=== PATIENT | female | born 1965 | race African-American/Black ===

== ENCOUNTER 2017-12-18 14:10 | Inpatient (IN) | payer SELFPAY ==
[2017-12-18] MEDS ORDERED: Nitroglycerin 2% Ointment 1 INCH/1 GM Packet ONE (14:15)
--- NOTE | 2017-12-18 14:26 | PDOC.FPRHP ---
- History of Present Illness Chief Complaint: Chest pain History of Present Illness: 52 yo F here with complaint of chest and right arm pain that onset this last night and progressively worsened until waking her from her sleep at 0400. Pt states that her pain started in her right arm and progressed to her chest. Pain is described as tightness with pain radiating to R arm/shoulder. She also complains of associated n/v and cold sweats. She has never had similar pain in the past. She has known HTN, however she has not taken her meds for at least 2 months. ED Course: Pt presented to the [facility] ED for evaluation where she was found to have a BP in 260s/130s. She was given cardine and sent to this location. Initial trops were 0.082 at 1110, this increased to 0.645 at 1433. CKMB was 3.6 and trended to 9.4. Here there was concern for possible dissection by ERMD, CTA could not be ordered dt JOLENE, thus MRA was ordered and is pending at time of this H&P - Allergies/Adverse Reactions Allergies Allergy/AdvReac Type Severity Reaction Status Date / Time No Known Allergies Allergy Verified 12/18/17 16:41 - Home Medications Comments: Unknown HTN meds, she hasnt had meds in 2-3 months - History PMHx: HTN PSHx: None FHx: Granmother CAD Grandfather CAD, ESRD Social: Cigarettes 15-30 pack year hx Denies etoh Previous marijuana use - Review of Systems General: denies: fever/chills, weight/appetite/sleep changes Eyes: denies: vision changes ENT: denies: nasal congestion, rhinorrhea Respiratory: denies: shortness of breath Cardiovascular: reports: chest pain. denies: palpitation Gastrointestinal: reports: nausea, vomiting. denies: diarrhea, constipation, abdominal pain Genitourinary: denies: incontinence, dysuria Skin: denies: rashes, lesions Musculoskeletal: denies: pain, tenderness Neurological: reports: other (Complains of headache). denies: numbness, syncope , seizure Psychological: denies: anxiety, depression - Vital signs BP: 182/93, 263/134 at max in [facility] HR: 72 RR: 23 Tmax: 98.3 Pox: 97% on RA Wt: 74 kg - Physical Exam Constitutional: NAD, awake, alert and oriented HEENT: normocephalic and atraumatic, grossly normal vision, grossly normal hearing Neck: FROM, trachea midline, no bruits Heart: RRR, no edema -Heart: 3/6 systolic murmur R sternal border Lungs: CTAB Abdomen: soft, non-tender, bowel sounds present Musculoskeletal: normal structure, normal tone Neurological: no focal deficit, CN II-XII intact Skin: no rash/lesions, good turgor Heme/Lymphatic: no unusual bruising or bleeding, no purpura Psychiatric: normal mood and affect, good judgment and insight FMR H&P: Results - Labs Lab results: Laboratory Tests 12/18/17 12/18/17 12/18/17 11:10 11:10 11:10 WBC RBC Hgb Hct MCV MCH MCHC RDW Plt Count D-Dimer 0.71 H Sodium 141 Potassium 3.3 L Chloride 104 Carbon Dioxide 25 Anion Gap 15 BUN 33 H Creatinine 2.07 H Estimated GFR (MDRD) 30 Glucose 99 Calcium 9.9 Total Bilirubin 0.5 AST 24 ALT 24 Alkaline Phosphatase 66 Creatine Kinase CK-MB (CK-2) 3.6 Troponin I 0.082 H B-Natriuretic Peptide Serum Total Protein 7.8 Albumin 4.3 Globulin 3.5 Albumin/Globulin Ratio 1.2 12/18/17 12/18/17 12/18/17 11:10 11:10 14:33 WBC 4.9 RBC 5.01 Hgb 11.2 L Hct 38.8 MCV 77.4 L MCH 22.3 L MCHC 28.9 L RDW 14.6 H Plt Count 218 D-Dimer Sodium Potassium Chloride Carbon Dioxide Anion Gap BUN Creatinine Estimated GFR (MDRD) Glucose Calcium Total Bilirubin AST ALT Alkaline Phosphatase Creatine Kinase CK-MB (CK-2) 9.4 H* Troponin I 0.645 H* B-Natriuretic Peptide 182.0 H Serum Total Protein Albumin Globulin Albumin/Globulin Ratio 12/18/17 14:33 WBC RBC Hgb Hct MCV MCH MCHC RDW Plt Count D-Dimer Sodium Potassium Chloride Carbon Dioxide Anion Gap BUN Creatinine Estimated GFR (MDRD) Glucose Calcium Total Bilirubin AST ALT Alkaline Phosphatase Creatine Kinase 320 H CK-MB (CK-2) Troponin I B-Natriuretic Peptide Serum Total Protein Albumin Globulin Albumin/Globulin Ratio - EKG Interpretation EKG: NSR rate 67. Twave inversion leads II, III, V4-6. LVH - Radiology Interpretation MRI - abdomen Status: pending FMR H&P: A/P - Problem List (1) Hypertensive emergency without congestive heart failure Current Visit: Yes Status: Acute Priority: High Code(s): I16.1 - HYPERTENSIVE EMERGENCY (2) NSTEMI (non-ST elevated myocardial infarction) Current Visit: Yes Status: Acute Priority: High Code(s): I21.4 - NON-ST ELEVATION (NSTEMI) MYOCARDIAL INFARCTION (3) JOLENE (acute kidney injury) Current Visit: Yes Status: Acute Priority: High Code(s): N17.9 - ACUTE KIDNEY FAILURE, UNSPECIFIED (4) HTN (hypertension) Current Visit: Yes Status: Chronic Priority: High Code(s): I10 - ESSENTIAL (PRIMARY) HYPERTENSION (5) Cardiac enzymes elevated Current Visit: Yes Status: Acute Priority: High Code(s): R74.8 - ABNORMAL LEVELS OF OTHER SERUM ENZYMES (6) Elevated brain natriuretic peptide (BNP) level Current Visit: Yes Status: Acute Priority: Medium Code(s): R79.89 - OTHER SPECIFIED ABNORMAL FINDINGS OF BLOOD CHEMISTRY (7) Hypokalemia Current Visit: Yes Status: Acute Priority: Medium Code(s): E87.6 - HYPOKALEMIA - Plan Hypertensive emergency - signs of end organ damage given elevated trops and Cr - Admit to ICU, continue cardine drip titrate to 180 SBP - Repeat BMP in am - Trend trops q3 with EKG at time of trop - MRA results pending, will consult CV surg if indicated NSTEMI - Consult cardiology, this is likely demand related, however appreciate recommendation - Trend trops/EKG as above - hold lovenox until MRA r/o dissection JOLENE vs CKD - likely assd with poor perfusion from BP - Trend bmp in am - check urine Na and Cr, calculate FENa Elevated BNP - mild elevation, no signs of overload. Likely related to BP Hypokalemia - maintenance IVF LR w/20mEq KCl PPx - SCD, hold lovenox as above Code full Diet NPO Dispo guarded. Likely LOS greater than 2 days. FMR H&P: Upper Level - Pertinent history 52 yo BF p/w progressively worsening midsternal chest pain and tightness radiating to right arm since last night. Associated symptoms include n/v and cold sweats. She has never had similar pain in the past. She has known HTN but has not taken her antihypertensive medications for at least 2 months. She has not seen a doctor in multiple months. In [place] [facility], pt was found to have an initial BP in 260s/130s. She was started on cardene drip and and transferred. Troponin has uptrended from 0.082 to 0.645 at 1433. CKMB was 3.6 and trended to 9.4. MRA was ordered d/t concern for possible dissection, but this has been read as negative. - Pertinent findings Gen: AAOx3, NAD HEENT: NC/AT, MMM CV: RRR, no m/g/r Resp: CTAB, no increased work of breathing Abd: NT/ND; +BS Ext: no c/c/e Pulses: 2+ BLE's Neuro: non-focal, CN's 2-12 intact - Plan Date/Time: 12/18/17 1426 I, Levy Delgado MD, have evaluated this patient and agree with findings/plan as outlined by recording studio internship resident. Pertinent changes/additions are listed here. 52 yo BF with: 1) Hypertensive emergency: Admit to CCU, continue cardene drip and titrate to goal SBP of <180. Some evidence of end organ damage (elevated creatinine and uptrending troponins). MRA negative for dissection. Concern for possible concomitant ACS. 2) NSTEMI: Consulting cardiology. More likely demand related/type 2 AK; however appreciate further recommendations. Trend trops/EKG q3h. Start th Lovenox, plavix, prn O2 and morphine given continuing CP and possible new EKG changes (T wave inversion in II, III, V5, V6). 3) JOLENE vs CKDIIIb: Likely JOLENE on CKD due to poor renal perfusion; trend Cr. Will check urine Na and Cr for FeNA calculation. IVF at maintenance. 4) Elevated BNP: mild, no current evidence of overload. Will order TTE. 5) Hypokalemia: repletion in IVF 6) Tobacco abuse: cessation counseling. DVT PPx: Lovenox as above. Code status: full Diet: NPO fow now. Disposition: guarded. Anticipate LOS>2 midnights.
[2017-12-18 15:15] LABS: CKMB 9.4 ng/mL (0-6.6); Troponin I 0.645 ng/mL (< 0.028)
[2017-12-18] MEDS ORDERED: Potassium Chloride 20 MEQ in Lactated Ringer's 1,000 ML IV SCH (15:45)
[2017-12-18] MEDS ORDERED: Nitroglycerin 0.4 MG TAB (25 Tab Bottle) SL PRN (16:11)
[2017-12-18] MEDS ORDERED: Acetaminophen 325 MG TAB PO PRN (16:11)
[2017-12-18] MEDS ORDERED: Ondansetron HCl/PF 4 MG/2 ML Vial IVP PRN (16:11)
--- NOTE | 2017-12-18 16:21 | MRI ---
MRI CHEST WITHOUT CONTRAST: MRI ABDOMEN WITHOUT CONTRAST: HISTORY: Chest pain, radiating to the back, with hypertension. Exam requested to evaluate for aortic dissecti on. FINDINGS: Absence of IV contrast reduces the sensitivity of the exam. Dark blood imaging of the thoracoabdomin al aorta demonstrates no evidence of signal abnormality or aneurysmal dilatation. No intramural hemat chris is seen. The liver, spleen, pancreas, adrenal glands, kidneys, and gallbladder are unremarkable. Bone marrow signal is normal. A small amount of free fluid is seen in the pelvis. A uterus is present. IMPRESSION: No evidence of secondary signs for aortic dissection. POS: [facility]
[2017-12-18 16:43] VITALS: BMI 22.6
[2017-12-18] MEDS ORDERED: Clopidogrel Bisulfate 300 MG TAB PO SCH (17:15)
[2017-12-18] MEDS ORDERED: Enoxaparin Sodium 60 MG/0.6 ML SYRINGE SC SCH (17:30)
[2017-12-18] MEDS ORDERED: Carvedilol 6.25 MG TAB PO SCH (17:45)
[2017-12-18 19:33] LABS: Troponin I 1.503 ng/mL (< 0.028)
[2017-12-18] MEDS: hydrALAZINE 25 MG TAB PO SCH (20:43)
[2017-12-18 20:44] VITALS: BP 122/68
--- NOTE | 2017-12-18 20:57 | ULT ---
ULTRASOUND RETROPERITONEUM COMPLETE: (RENAL) 12/18/2017 HISTORY: A 52-year-old female with acute kidney injury. FINDINGS: The right kidney measures 10 x 3.5 x 5 cm. The left kidney measures 8.5 x 5 x 5 cm. Renal parenchymal echogenicity is diffusely increased, consistent with medical renal disease. No hydronephrosis bilaterally. No moderate sized or large renal cystic or solid lesion identified. The patient voided just prior to this ultrasound. The bladder volume is approximately 20 mL at the t dante of this scan. Bilateral ureteral jets are demonstrated. IMPRESSION: 1. Evidence for medical renal disease. 2. No hydronephrosis; no obstructive uropathy. LARS Carrera POS: [facility]
[2017-12-18 22:34] LABS: Troponin I 2.489 ng/mL (< 0.028)
[2017-12-18 22:55] LABS: Creatinine, Urine 45.84 mg/dL (47-110)
--- NOTE | 2017-12-18 23:08 | CON ---
DATE OF CONSULTATION: 12/18/2017 SERVICE: Pulmonary Medicine. REASON FOR CONSULTATION: ICU patient. HISTORY OF PRESENT ILLNESS: The patient is a 52-year-old, -[place] female with past medical history significant for hypertension. For the last 2 months, she has been off her blood pressure medications because she indicates she cannot afford them. Either way, she was in her usual state of health until the day of presentation. She started having onset of severe chest discomfort that radiated down to her left arm. She presented to the emergency department. Initial blood pressure demonstrated that she had a systolic blood pressure of 260. She was given nitro paste, and initiated on a nicardipine drip. Once her blood pressures were under better control, she stopped having the chest discomfort. She was sent down to an MRI because of acute kidney injury to determine whether or not she had any significant dissection. This was unremarkable. She got tucked into the ICU, and currently, she is feeling just fine. Otherwise, there has been no interval change to her condition. She denies any preceding fevers, chills, nausea, vomiting or chest discomfort. She was at a picnic for a family member. She feels that maybe she was not drinking enough liquids and perhaps was a touch dehydrated. PAST MEDICAL HISTORY: Hypertension. PAST SURGICAL HISTORY: None. FAMILY HISTORY: Noncontributory. SOCIAL HISTORY: Negative for alcohol or illicit drug use. She smokes a half pack a day and has done so for about 30 years. She has no exposure to chemicals , dust, asbestos or tuberculosis. She does work in a laundry location. Recently, there has been a moldy smell about her place, but it has not set off her lungs. ALLERGIES: No known drug allergies. MEDICATIONS: List of her inpatient medications were reviewed. A couple of small updates were made at this time. REVIEW OF SYSTEMS: General, head, ears, eyes, nose, throat, cardiovascular, respiratory, GI, , musculoskeletal, neurologic and skin is negative except as mentioned in the HPI. PHYSICAL EXAMINATION: VITAL SIGNS: Afebrile, pulse 64, blood pressure 170/86, respirations 17, saturation 98% on room air. GENERAL: The patient is awake, alert, in no apparent distress. LUNGS: Excellent air entry without prolonged expiratory phase, wheezing, rhonchi or crackles. HEART: Normal rate, regular. ABDOMEN: Soft, nontender, nondistended. Bowel sounds are positive. MUSCULOSKELETAL: No cyanosis or clubbing. There is no pitting in the bilateral lower extremities. NEUROLOGIC: Grossly nonfocal. LABORATORY DATA: WBC 4.9, hemoglobin 11.2, platelets 218,000. D-dimer 0.71. Basic metabolic profile, liver function studies are unremarkable except for creatinine of 2.07, and a potassium of 3.3. Troponin 0.082 is up trending to 0.6. CK-MB is also up trending. CK 320, TSH falls within the normal limits. IMAGIN. MRI of the chest demonstrates no acute dissection. 2. CT of the brain demonstrates no acute intracranial abnormality. 3. Chest x-ray demonstrates no acute cardiopulmonary abnormality identified. ASSESSMENT: 1. Hypertensive emergency. 2. Non-ST elevation myocardial infarction. 3. Acute kidney injury, suspected. 4. Anemia. DISCUSSION AND PLAN: We will work on controlling the patient's blood pressure. We are going to wean away the nicardipine drip and see if we can transition her over to p.o. medications. Pulmonary Critical Care will continue to follow along while the patient remains in this location. Once she is off the drip and the nitro paste, she will be a candidate for transition to the floor. I have stressed the importance of her being on good blood pressure control medications. She understands that without a decent blood pressure control, she will likely develop progressive end-stage renal disease and require dialysis at some point in the future. 70 minutes have been devoted to this patient in various activities. I personally reviewed all imaging studies and laboratory data noted within this document. For fifty percent of this time, I was interacting with the patient at the bedside or coordinating care with the care team. For the remainder of the time I was immediately available to the patient in the hospital unit. DEBI
[2017-12-19 03:10] LABS: #Eosinphils 0.1 thou/uL (0.0-0.7); #Lymphocytes 1.6 thou/uL (1.20-3.40); #Monocytes 0.4 thou/uL (0.11-0.59); %Basophils 0.3 % (0.0-1.0); %Eosinophils 2.5 % (0.0-10.0); %Lymphocytes 31.4 % (21.0-51.0); %Monocytes 8.3 % (0.0-10.0); %Neutrophils 57.5 % (42.0-75.0); Hemoglobin 10.6 g/dL (12.0-16.0); Mean Corpuscular HGB CONC 32.9 g/dL (32.0-36.0); Mean Corpuscular Hemoglobin 24.8 pg (27.0-31.0); Mean Corpuscular Volume 75.6 fl (81.0-99.0); Mean Platelet Volume 8.4 fL (7.4-10.4); Platelet Count 203 thou/uL (130-400); RBC Distribution Width 13.8 % (11.5-14.5); Red Blood Cell (RBC) Count 4.25 mill/uL (4.20-5.40); White Blood Cell (WBC) Count 5.2 thou/uL (4.8-10.8)
[2017-12-19 03:37] LABS: CKMB 9.5 ng/mL (0-6.6); Troponin I 4.445 ng/mL (< 0.028)
[2017-12-19 03:40] LABS: Anion Gap 11 mmol/L (10-20); BUN (Urea Nitrogen) 28 mg/dL (9.8-20.1); Calc. Creatinine Clearance 36 mL/min (70-130); Calcium 9.1 mg/dL (7.8-10.44); Carbon Dioxide 28 mmol/L (22-29); Chloride 104 mmol/L (98-107); Estimated GFR-MDRD 37; Glucose 101 mg/dL (70-105); Potassium 3.4 mmol/L (3.5-5.1); Sodium 140 mmol/L (136-145)
[2017-12-19 06:31] LABS: CKMB 8.1 ng/mL (0-6.6)
[2017-12-19] MEDS: hydrALAZINE 25 MG TAB PO SCH (07:53)
[2017-12-19] MEDS ORDERED: Carvedilol 6.25 MG TAB PO SCH (08:00)
--- NOTE | 2017-12-19 08:29 | PDOC.FM ---
- Subjective Subjective: Patient reports doing well overnight. Denies any symptoms from yesterday such as CP, right arm pain. Denies N/V/D/C, BAKER, SOB. - Objective MAR Reviewed: Yes Vital Signs & Weight: Vital Signs (12 hours) Temp Pulse Resp BP Pulse Ox 12/19/17 07:22 98.6 F 65 15 98 12/19/17 03:00 98.9 F 12/18/17 23:00 98.4 F 12/18/17 20:43 68 122/68 Weight Weight 64.1 kg Most Recent Monitor Data Heart Rate from ECG 66 NIBP 152/85 NIBP BP-Mean 95 Respiration from ECG 17 SpO2 97 I&O: 12/18/17 12/19/17 12/20/17 06:59 06:59 06:59 Intake Total 925 Output Total 1025 0 Balance -100 0 Result Diagrams: 12/19/17 03:02 12/19/17 03:02 <David Meza M - Last Filed: 12/19/17 08:27> - Objective Vital Signs & Weight: Vital Signs (12 hours) Temp Pulse Resp Pulse Ox 12/19/17 07:22 98.6 F 65 15 98 12/19/17 03:00 98.9 F Weight Weight 64.1 kg Most Recent Monitor Data Heart Rate from ECG 63 NIBP 144/85 NIBP BP-Mean 106 Respiration from ECG 14 SpO2 100 I&O: 12/18/17 12/19/17 12/20/17 06:59 06:59 06:59 Intake Total 925 150 Output Total 1025 250 Balance -100 -100 Result Diagrams: 12/19/17 03:02 12/19/17 03:02 <Mustapha Hunter - Last Filed: 12/19/17 11:37> Phys Exam - Physical Examination Constitutional: NAD HEENT: moist MMs, oral pharynx no lesions Respiratory: no wheezing, clear to auscultation bilateral Cardiovascular: RRR, no significant murmur Gastrointestinal: soft, non-tender, positive bowel sounds Musculoskeletal: no edema, pulses present Neurological: normal sensation, moves all 4 limbs Psychiatric: normal affect, A&O x 3 Skin: no rash, normal turgor <David Meza - Last Filed: 12/19/17 08:27> Dx/Plan (1) Hypertensive emergency without congestive heart failure Code(s): I16.1 - HYPERTENSIVE EMERGENCY Status: Acute Plan: improved BP from yesterday when she presented with symptoms, still elevated today continue with BP home regimen with PRNs; if still consistently high, we might need to add another agent as she is currently on hydralazine and nicardipine (2) NSTEMI (non-ST elevated myocardial infarction) Code(s): I21.4 - NON-ST ELEVATION (NSTEMI) MYOCARDIAL INFARCTION Status: Acute Plan: suspect demand ischemia 2/2 HTN emergency Cardiology consulted, recs greatly appreciated (3) JOLENE (acute kidney injury) Code(s): N17.9 - ACUTE KIDNEY FAILURE, UNSPECIFIED Status: Acute Plan: improving, continue fluid hydration and monitoring suspected 2/2 HTN emergency (4) Cardiac enzymes elevated Code(s): R74.8 - ABNORMAL LEVELS OF OTHER SERUM ENZYMES Status: Acute (5) Hypokalemia Code(s): E87.6 - HYPOKALEMIA Status: Acute Plan: replace (6) HTN (hypertension) Code(s): I10 - ESSENTIAL (PRIMARY) HYPERTENSION Status: Chronic Plan: continue with nicardipine and hydralazine, consider adding another agent if still elevated, but it looks better than yesterday (7) Anemia Code(s): D64.9 - ANEMIA, UNSPECIFIED Status: Acute <David Meza - Last Filed: 12/19/17 08:27> Attending Addendum - Attending Addendum Date/Time: 12/19/17 1133 I personally evaluated the patient and discussed the management with Dr. Mzea I agree with the History, Examination, Assessment and Plan documented above with any addition or exceptions noted below.Discussed with patient futility of vinegar regimen for the treatment of hypertension. Plan convert affordable PO HTN, Statin Rxs and need ASA. Appreciate Cardiology recommendation regard NSTEMI and patient stable transfer to telemetry floor today. <Mustapha Hunter - Last Filed: 12/19/17 11:37>
[2017-12-19] MEDS ORDERED: Potassium Chloride 20 MEQ TAB PO SCH (08:30)
[2017-12-19] MEDS ORDERED: Aspirin 81 mg Enteric Coated Tablet PO SCH (09:00)
[2017-12-19] MEDS ORDERED: Clopidogrel Bisulfate 75 MG TAB PO SCH (09:00)
[2017-12-19] MEDS ORDERED: Enoxaparin Sodium 60 MG/0.6 ML SYRINGE SC SCH (09:00)
[2017-12-19 12:35] VITALS: TEMP 98.9
[2017-12-19] MEDS ORDERED: Atorvastatin Calcium 40 MG TAB PO SCH (12:45)
[2017-12-19] MEDS ORDERED: NIFEdipine XL 60 MG TAB PO SCH (13:00)
--- NOTE | 2017-12-19 13:44 | CON ---
DATE OF CONSULTATION: 12/19/2017 HISTORY OF PRESENT ILLNESS: The patient is a 52-year-old woman, who presented for evaluation of head aches and right-sided chest discomfort. The patient has no previous cardiac history. She has a long history of hypertension. She states she has not seen a doctor or had been on medications for severa l years. The patient states that she was out in the heat yesterday when she suddenly developed a hea dache. She developed right-sided chest discomfort that radiated into her right arm. She went to the emergency room for evaluation. The patient states the chest discomfort did not radiate. She stated it was associated with nausea and vomiting and diaphoresis. PAST MEDICAL HISTORY: Significant for hypertension. PAST SURGICAL HISTORY: None. SOCIAL HISTORY: The patient smokes 1 pack per day. FAMILY HISTORY: Strong family history of coronary artery disease. ALLERGIES: No known drug allergies. PHYSICAL EXAMINATION: GENERAL: This is an anxious woman with a blood pressure of 144/85. NECK: No jugular venous distention. LUNGS: Clear to auscultation. HEART: Regular rate and rhythm, normal S1 and S2, no murmurs. ABDOMEN: Nondistended. EXTREMITIES: Show no edema. LABORATORY RESULTS: Sodium 140, potassium 3.4, chloride 104, bicarbonate 28, BUN 20, creatinine is 1 .72, glucose is 101. Her troponin was 4.4. Her EKG revealed normal sinus rhythm with diffuse T-wave abnormality suggestive of ischemia. IMPRESSION: 1. Hypertensive crisis. 2. Non-Q-wave myocardial infarction. 3. Renal insufficiency. 4. Abnormal electrocardiogram. 5. Noncompliance. 6. Tobacco abuse. This patient is a 52-year-old woman, who presented with a hypertensive crisis and a non-Q-wave myocar dial infarction. The patient has multiple risk factors for coronary artery disease. I have recommen ded proceeding with invasive evaluation with her multiple risk factors and non-Q-wave myocardial infa rction. The patient is adamant that she will not undergo this procedure. She states that she unders tands that she is high risk of life-threatening cardiac complications. The patient is being treated at this time with aspirin, Plavix, and Lovenox. We will check the patient's echocardiogram. We woul d start the patient on lipid-lowering medication. The patient's prognosis is guarded. If she become s agreeable, we will proceed with cardiac catheterization during this hospitalization. We will follo w this patient with you. This is a critical care note, the time is 1 hour.
--- NOTE | 2017-12-19 19:49 | PRG ---
DATE OF SERVICE: 12/19/2017 SERVICE: Pulmonary Medicine. INTERVAL HISTORY: The patient is doing fine from a respiratory standpoint. She is breathing comfort ably and has no specific complaints of chest pain, shortness of breath, fevers or chills. Her creati nine is down trending nicely. Otherwise, there has been no interval change to her condition and ulti mately, she is feeling much improved. PHYSICAL EXAMINATION: VITAL SIGNS: Afebrile, pulse 67, blood pressure 169/102, respirations 21, saturation 100% on room ai r. GENERAL: The patient is awake, alert, in no apparent distress. LUNGS: Excellent air entry without prolonged expiratory phase, wheezing, rhonchi or crackles. HEART: Normal rate, regular. ABDOMEN: Soft, nontender, nondistended. Bowel sounds are positive. MUSCULOSKELETAL: No cyanosis or clubbing. There is no pitting in the bilateral lower extremities. NEUROLOGIC: Grossly nonfocal. LABORATORY DATA: CBC is grossly unremarkable. Chemistries are significant for a down trending BUN a nd creatinine. Potassium 3.4. Troponin was 4.445, and is down trending to 4.36. CK-MB is also down trending. IMAGING: Ultrasound of the bilateral kidneys demonstrates medical renal disease with no evidence of hydronephrosis. ASSESSMENT: 1. Hypertensive emergency. 2. Non-ST elevation myocardial infarction. 3. Acute kidney injury, suspected on top of some likely chronic kidney disease. 4. Anemia. DISCUSSION AND PLAN: At this point, the patient is stable for transition out of the ICU to the telem etry unit. Apparently, she is refused cardiac catheterization for risk stratification looking at cor onary disease. As such, when she leaves the ICU, she will have no further requirement for Pulmonary or Critical Care opinion and I will sign off. Please call with additional questions or concerns selina rosa forward.
[2017-12-20] MEDS ORDERED: NIFEdipine XL 60 MG TAB PO SCH (09:00)
[2017-12-20] MEDS ORDERED: Enoxaparin Sodium 40 MG/0.4 ML SYRINGE SC SCH (09:00)
--- NOTE | 2017-12-20 09:30 | DIS-2 ---
AMA DISCHARGE DATE OF ADMISSION: 12/18/2017 DATE OF AMA: 12/19/2017 RESIDENT: David Meza D.O. ADMITTING ATTENDING: Jigar Jimenez M.D. CONSULTATIONS: Dr. Pemberton of Pulmonology and Dr. Roe of Cardiology. PROCEDURES: Chest MRI showing no signs of aortic dissection. Renal ultrasound, which shows evidence for medical renal disease with no hydronephrosis or obstructive uropathy. Transthoracic echocardiog buster is pending at this time. PRIMARY DIAGNOSES: Hypertensive emergency with end-organ damage of acute kidney injury and non-ST el evation myocardial infarction. SECONDARY DIAGNOSES: 1. Tobacco abuse. 2. Medication noncompliance. 3. Acute kidney injury versus chronic kidney disease, 3B. 4. Hypertension. Medications given to patient upon leaving hospital: 1. Aspirin 81 mg p.o. daily. 2. Atorvastatin 80 mg p.o. at bedtime. 3. Nifedipine XL 30 mg p.o. daily. 4. Coreg 12.5 mg b.i.d. HISTORY OF PRESENT ILLNESS AND HOSPITAL COURSE: The patient is a 52-year-old female, who initially p resented to the [facility] with chest pain. At that time, the patient's brain CT was found to have findings suggesting white matter hypodensity with no intracranial hemorrhage, midline shift, or mass effect with potential white matter disease best being visualized with a followup MRI. At that time, the patient's blood pressure was in the 260s systolic. Therefore, patient was started on Cardene dri p and given Nitrostat, which resolved her symptoms with chest pain. After being transferred to [facility] in [place], her troponins were trended, which trended from 0.[address] up to 4.445. There was concern of an aortic dissection. Therefore, patient received MRA because of an JOLENE; however, MRA was negative for aortic dissection. Other pertinent labs initially was CK-M B of 3.6, which also elevated to 9.4. Additionally, initial creatinine was 2.07. EKGs showed T-wave inversions in leads II, III, V5 and V6. The patient apparently had not been taking blood pressure medications for a while although we are adrianne ble to determine exactly how long this time period was or why she stopped taking medications. On day 2 of hospitalization, patient was seen and evaluated by Cardiology, who recommended the patient rece roberta cardiac catheterization; however, the patient was resistant to this idea and became distraught at the idea, crying at one point discussing the procedure. The patient said she was refusing because h er brother's had what sounds like a similar procedure last year and during the procedure de spite explaining the risks involved and her current status and risk factors. The patient refused to go any further in the hospital visit and asked for AMA papers and for her daughter to be called. I p ersonally spoke with the patient and attempted to explain the situation and the severity and grave na ture of prognosis. However, she was adamant to leave as soon as her daughter arrived. Additionally, I asked if she would be willing to stay for another day just to lower her blood pressure and ensure that her kidney function was appropriately improving; however, she refused this compromise as well an d left AMA in the midafternoon on Monday. The patient was willing to take blood pressure medication s and statin, which we sent to pharmacy requested by the patient. DISPOSITION: Guarded. DISCHARGE INSTRUCTIONS: Patient requested to follow up with her PCP to ensure that kidney function h as improved to baseline and to follow up on blood pressure.
== END 2017-12-19 14:37 | disposition home or self-care (01) | DRG 281 ==
LOC: ERS 14:10 → CCU 15:52
PROVIDERS: ADMIT Student in an Organized Health Care Education/Training Program; ATTEND Student in an Organized Health Care Education/Training Program
DX: I21.4 Non-ST elevation (NSTEMI) myocardial infarction (principal); I16.1 Hypertensive emergency; N17.9 Acute kidney failure, unspecified; D64.9 Anemia, unspecified; F17.210 Nicotine dependence, cigarettes, uncomplicated; Z91.14 Patient's other noncompliance with medication regimen; E86.0 Dehydration; E87.6 Hypokalemia; R79.89 Other specified abnormal findings of blood chemistry; N18.3 Chronic kidney disease, stage 3 (moderate); Z79.899 Other long term (current) drug therapy
CPT/HCPCS: 36415; 71550; 76770; 80048; 82553; 82570; 84300; 84443; 84484; 85025; 93005; 93010; 93306; 94760; 96365; 96366; 99292; J1650; J3480; J7050; J7120

== ENCOUNTER 2018-03-26 12:24 | Inpatient (IN) | payer SELFPAY ==
[2018-03-26 13:22] LABS: #Eosinphils 0.2 thou/uL (0.0-0.7); #Lymphocytes 1.3 thou/uL (1.20-3.40); #Monocytes 0.4 thou/uL (0.11-0.59); %Basophils 0.9 % (0.0-1.0); %Eosinophils 3.2 % (0.0-10.0); %Lymphocytes 26.4 % (21.0-51.0); %Monocytes 7.8 % (0.0-10.0); %Neutrophils 61.7 % (42.0-75.0); Hemoglobin 10.4 g/dL (12.0-16.0); Mean Corpuscular HGB CONC 31.3 g/dL (32.0-36.0); Mean Corpuscular Hemoglobin 23.7 pg (27.0-31.0); Mean Corpuscular Volume 75.6 fL (78.0-98.0); Mean Platelet Volume 8.8 fL (7.4-10.4); Platelet Count 217 thou/uL (130-400); RBC Distribution Width 14.4 % (11.5-14.5); White Blood Cell (WBC) Count 4.9 thou/uL (4.8-10.8)
[2018-03-26 13:44] LABS: ALT (SGPT) 9 U/L (8-55); AST (SGOT) 17 U/L (5-34); Albumin 4.2 g/dL (3.5-5.0); Alkaline Phosphatase 57 U/L (40-150); Anion Gap 13 mmol/L (10-20); BUN (Urea Nitrogen) 31 mg/dL (9.8-20.1); Bilirubin, Total 0.6 mg/dL (0.2-1.2); CK (CPK) 201 U/L (29-168); Calc. Creatinine Clearance 0 mL/min (70-130); Calcium 9.7 mg/dL (7.8-10.44); Carbon Dioxide 23 mmol/L (22-29); Chloride 106 mmol/L (98-107); Estimated GFR-MDRD 31; Globulin 3.4 g/dL (2.4-3.5); Glucose 98 mg/dL (70-105); Potassium 3.8 mmol/L (3.5-5.1); Protein, Total 7.6 g/dL (6.0-8.3); Sodium 138 mmol/L (136-145)
[2018-03-26 13:48] LABS: CKMB 1.4 ng/mL (0-6.6); Troponin I Less than 0.010 ng/mL (< 0.028)
--- NOTE | 2018-03-26 13:50 | RAD ---
PORTABLE CHEST: HISTORY: Chest pain. COMPARISON: 12/18/17 study. Heart size is enlarged. There are arthrosclerotic changes of the aorta. The lungs are clear of infi ltrates. There are no signs of failure. IMPRESSION: Cardiomegaly. POS: GIANFRANCO
[2018-03-26] MEDS ORDERED: hydrALAZINE 20 MG/ML VIAL SLOW IVP SCH (16:00)
--- NOTE | 2018-03-26 16:43 | PDOC.FPRHP ---
- History of Present Illness Chief Complaint: Chest pain History of Present Illness: This is a 52 yo AA female with a PMH of HTN, hx of an NSTEMI on 12/18 presents with a cc of chest pain. She states that the pain was present last night but worsened this morning during a 1/2 mile walk to the grocery store. She states that she felt a sharp pain and felt she was sweating too much so she came home. She states that the pain was a 10/10 at the time and is currently intermittent. She is concerned because this is a similar pain to what she had during her [place] last time. Her pecan huller is Dr. Roe and she has no PCP. She also states she has LE swelling bilaterally. She had an echo in December showing EF of 50-55%. She also complains of right leg pain. It is a throbbing pain that is located in her anterior thigh primarily. Pt. did not take her medication this morning because she did not have any food. - Allergies/Adverse Reactions Allergies Allergy/AdvReac Type Severity Reaction Status Date / Time No Known Allergies Allergy Verified 12/18/17 16:41 - Home Medications Medication Instructions Recorded Confirmed Type Aspirin [Lo-Dose Aspirin EC] 81 mg PO DAILY #30 tablet. 12/19/17 03/26/18 Rx Atorvastatin Calcium 80 mg PO HS #30 tablet 12/19/17 03/26/18 Rx Carvedilol [Coreg] 12.5 mg PO BID-WM #60 tab 12/19/17 03/26/18 Rx Amlodipine [Norvasc] 10 mg PO DAILY 03/26/18 03/26/18 History - History PMHx: HTN, CKD stage 3, W[place] PSHx: FHx: Both parents of heart attacks. Mother and father at 70 and 72 respectively Social: 15 pack year history, occasional alcohol consumption, occasional marijuana use. - Review of Systems General: denies: fever/chills, weight/appetite/sleep changes Eyes: reports: eye pain (blurry vision) ENT: denies: nasal congestion, rhinorrhea Respiratory: reports: exercise intolerance (Chest pain with with walking. She reports that was the furthest she had walked in a while.). denies: cough, congestion, shortness of breath Cardiovascular: reports: chest pain (See HPI), edema (Occasional) Gastrointestinal: denies: nausea, vomiting, diarrhea, constipation, abdominal pain Genitourinary: reports: polyuria. denies: incontinence, dysuria Skin: denies: rashes, lesions Musculoskeletal: reports: pain (Right leg pain). denies: tenderness, stiffness , swelling Neurological: denies: syncope, weakness Psychological: reports: anxiety (History of anxiety with previous WV and thoughts of getting a stent.) - Vital signs BP: [165/92] HR: [62] RR: [14] Pox: [99]% on [RA] Wt: [66.22] - Physical Exam Constitutional: NAD, awake, alert and oriented, well developed HEENT: normocephalic and atraumatic, PERRLA Neck: supple, trachea midline, no JVD Chest: no lesions -Chest: Tenderness to palpation. Pt reports the pain from palpation was similar to the pain she felt this AM. Heart: RRR, normal S1/S2, no murmurs/rubs/gallops Lungs: CTAB, no respiratory distress, good air movement Abdomen: soft, non-tender, bowel sounds present Musculoskeletal: normal structure, normal tone, ROM grossly normal Neurological: no focal deficit, CN II-XII intact Skin: no rash/lesions, capillary refill <2 seconds Heme/Lymphatic: no unusual bruising or bleeding, no purpura -Psychiatric: Pt. had trouble remembering her last hospitalization. She reports that they gave her a medication, nitroglycerine, and that is why she could not remember. FMR H&P: Results - Labs Result Diagrams: 03/27/18 04:14 03/27/18 04:14 Lab results: WBC 4.9 thou/uL (4.8-10.8) 03/26/18 13:13 Hgb 10.4 g/dL (12.0-16.0) L 03/26/18 13:13 Hct 33.2 % (36.0-47.0) L 03/26/18 13:13 MCV 75.6 fL (78.0-98.0) L 03/26/18 13:13 Plt Count 217 thou/uL (130-400) 03/26/18 13:13 Neutrophils % 61.7 % (42.0-75.0) 03/26/18 13:13 Sodium 138 mmol/L (136-145) 03/26/18 13:13 Potassium 3.8 mmol/L (3.5-5.1) 03/26/18 13:13 Chloride 106 mmol/L (98-107) 03/26/18 13:13 Carbon Dioxide 23 mmol/L (22-29) 03/26/18 13:13 BUN 31 mg/dL (9.8-20.1) H 03/26/18 13:13 Creatinine 2.04 mg/dL (0.6-1.1) H 03/26/18 13:13 Glucose 98 mg/dL (70-105) 03/26/18 13:13 Calcium 9.7 mg/dL (7.8-10.44) 03/26/18 13:13 Total Bilirubin 0.6 mg/dL (0.2-1.2) 03/26/18 13:13 AST 17 U/L (5-34) 03/26/18 13:13 ALT 9 U/L (8-55) 03/26/18 13:13 Alkaline Phosphatase 57 U/L (40-150) 03/26/18 13:13 Creatine Kinase 201 U/L (29-168) H 03/26/18 13:13 CK-MB (CK-2) 1.4 ng/mL (0-6.6) 03/26/18 13:13 Serum Total Protein 7.6 g/dL (6.0-8.3) 03/26/18 13:13 Albumin 4.2 g/dL (3.5-5.0) 03/26/18 13:13 - EKG Interpretation EKG: EKG shows some lateral T wave changes that appear improved from the previous EKG in 12/18. NSR FMR H&P: A/P - Problem List (1) Acute kidney injury superimposed on chronic kidney disease Current Visit: Yes Status: Acute Code(s): N17.9 - ACUTE KIDNEY FAILURE, UNSPECIFIED; N18.9 - CHRONIC KIDNEY DISEASE, UNSPECIFIED (2) NSTEMI (non-ST elevated myocardial infarction) Current Visit: No Status: Acute Priority: High Code(s): I21.4 - NON-ST ELEVATION (NSTEMI) MYOCARDIAL INFARCTION (3) HTN (hypertension) Current Visit: No Status: Chronic Priority: High Code(s): I10 - ESSENTIAL (PRIMARY) HYPERTENSION - Plan This is a 52 yo AA female with a PMH of HTN, [place] 12/18/17, CKD Likely Unstable angina vs. ACS vs. chostrocondritis -Troponin is negative x2. EKG shows improved findings compared to her last admission. Her story fits angina but her pain is reproducable. We will keep her on tele obs overnight and consult cardiology in the morning after labs have come back. Pt. has a heart score of 5 based on findings. We are getting TSH to rule out any thyroid issues HTN -Continue home coreg, norvasc and atorvastatin CKD -Aware, dosing lovenox accordingly Code: full Prophylaxis: 30mg lovenox Family: none at beside Disposition: home in 1-2 days FMR H&P: Upper Level - Pertinent history 52 yo AAF with PMHx recent non-Q-wave WV who presents to the ER with 1 day of chest pain. She had a little bit last night that went away on it's own. This morning, she walked to the corner store to get a Coke and up on getting home, had an episode of sharp > 10/10 chest pain in her L upper chest. It made her feel short of breath and like the last time she had a heart attack so she came in to get checked out. She reports feeling sweaty as well. She denies n/v/ radiation of pain. She continues to smoke 1/2 ppd. - Pertinent findings Gen: awake, alert and oriented x3 Head: Atraumatic, normocephalic Eyes: EOMI, conjunctiva non-injected ENT: MMM, oropharynx without edema, trachea midline, no JVD, no thyromegaly or nodules CV: RRR, no murmur noted, L chest wall TTP, nitro patch in place, no skin changes RESP: CTAB, poor air entry at bases ABD: soft, nontender, bowel sounds diffusely present Ext: pulses full and equal, no peripheral edema Neuro: Strength 4/4 in all extremities, no facial droop Skin: No rashes, lesions See labs and imaging above - Plan Date/Time: 03/26/18 1641 I, Nereida Stallworth MD, have evaluated this patient and agree with findings/plan as outlined by cad intern resident. Pertinent changes/additions are listed here. 52 yo AAF with recent WV here with typical chest pain 1. Typical CP: HEART score 4. Pain improved with nitro, assoc with exertion, though also reproducible. Recent [place] and declined cath per Dr. Roe note but will consider it now. Will admit and trend trops, check FLP, TSH, Mg, Phos and monitor on tele. Will restart atorvastatin and ASA. Plavix per last cardiology note but not discharged on it so will await cardiology eval. Last saw Dr. Roe 1 month ago in clinic, per patient. No acute changes on EKG. 2. Hypertensive urgency: s/p hydralazine in ED. Will restart home meds 3. Tobacco abuse: Encouraged cessation. Pre-contemplative at this time. 4. CKD Stage 3, approaching 4: At baseline but should see nephrology outpatient. Will monitor and renally dose medications. Needs good BP control. 5. Microcytic anemia: Likely iron deficiency but may also be component from CKD. Iron studies outpatient. PPX: Lovenox Attending Addendum - Attending Addendum Date/Time: 03/26/18 349 I personally evaluated the patient and discussed the management with Dr. Mathew and Dr. Stallworth I agree with the History, Examination, Assessment and Plan documented above with any addition or exceptions noted below. 52 yo female with recent history of NSTEMI presents with exertional chest pain. Pain improved with nitro patch. Needs cath. EKG unchanged. No ST elevations. Trop negative. If trop remains negative and no changes occur on EKG, could consider stress in AM vs LHC. Normal ECHO in December 2017. Place on tele. Trend trops and repeat EKG. Restart ASA, Statin, BB. O2 and morphine as needed for ASC. Lovenox ppx. Monitor renal function. Likely prerenal. HTN urgency -- adjust BP meds ABrayMD
[2018-03-26 17:09] LABS: Troponin I Less than 0.010 ng/mL (< 0.028)
[2018-03-26 17:18] VITALS: BMI 24.5
[2018-03-26] MEDS ORDERED: Nitroglycerin 0.4 MG TAB (25 Tab Bottle) PO PRN (17:33)
[2018-03-26] MEDS ORDERED: Ondansetron HCl/PF 4 MG/2 ML Vial IVP PRN (17:33)
[2018-03-26] MEDS ORDERED: Acetaminophen 325 MG TAB PO PRN (17:33)
[2018-03-26] MEDS ORDERED: Ondansetron ODT 4 MG TAB PO PRN (17:33)
[2018-03-26] MEDS ORDERED: Carvedilol 6.25 MG TAB PO SCH ×2 (18:00→21:00)
[2018-03-26] MEDS ORDERED: Amlodipine 10 MG TAB PO SCH (18:00)
[2018-03-26] MEDS: Nicotine 14 MG PATCH TD SCH (18:12)
[2018-03-26 20:07] LABS: Magnesium 2.1 mg/dL (1.6-2.6); Phosphorus 3.2 mg/dL (2.3-4.7)
[2018-03-26 20:14] LABS: Troponin I 0.015 ng/mL (< 0.028)
[2018-03-26 20:28] LABS: Ferritin 104.39 ng/mL (10-291)
[2018-03-26 20:35] LABS: Thyroid Stimulating Hormone 0.9644 uIU/mL (0.35-4.94)
[2018-03-26] MEDS: Enoxaparin Sodium 30 MG/0.3 ML SYRINGE SC SCH (20:56)
[2018-03-27 05:05] LABS: #Basophils 0.1 thou/uL (0.0-0.2); #Eosinphils 0.2 thou/uL (0.0-0.7); #Lymphocytes 1.8 thou/uL (1.20-3.40); #Monocytes 0.4 thou/uL (0.11-0.59); #Neutrophils 2.1 thou/uL (1.40-6.50); %Basophils 1.4 % (0.0-1.0); %Eosinophils 3.7 % (0.0-10.0); %Lymphocytes 40.4 % (21.0-51.0); %Neutrophils 46.6 % (42.0-75.0); Hemoglobin 10.5 g/dL (12.0-16.0); Mean Corpuscular HGB CONC 31.5 g/dL (32.0-36.0); Mean Corpuscular Hemoglobin 23.6 pg (27.0-31.0); Mean Platelet Volume 8.6 fL (7.4-10.4); Platelet Count 204 thou/uL (130-400); RBC Distribution Width 14.3 % (11.5-14.5); Red Blood Cell (RBC) Count 4.47 mill/uL (4.20-5.40); White Blood Cell (WBC) Count 4.4 thou/uL (4.8-10.8)
[2018-03-27 05:06] LABS: Anion Gap 12 mmol/L (10-20); BUN (Urea Nitrogen) 29 mg/dL (9.8-20.1); CK (CPK) 165 U/L (29-168); Calc. Creatinine Clearance 35 mL/min (70-130); Calcium 9.9 mg/dL (7.8-10.44); Carbon Dioxide 26 mmol/L (22-29); Cardiac Risk 2.6 (Less than 4.5); Chloride 105 mmol/L (98-107); Cholesterol 160 mg/dl (< 200 Desired); Estimated GFR-MDRD 34; Glucose 96 mg/dL (70-105); HDL Cholesterol 61 mg/dL (>60 Neg Risk); LDL Cholesterol, Calculated 88 mg/dL; Potassium 3.8 mmol/L (3.5-5.1); Sodium 139 mmol/L (136-145); Triglycerides 56 mg/dL (Less than 150)
--- NOTE | 2018-03-27 05:53 | PDOC.FM ---
- Subjective Subjective: Pt. reports she did well overnight. She denies any sob, n/v, or abdominal pain. Pt. reports improved chest pain and states it is still reproducible. I discussed the plan of stress test or heart cath with her and she became tearful. She does state that she would be willing to do it if she had to. - Objective MAR Reviewed: Yes Vital Signs & Weight: Vital Signs (12 hours) Temp Pulse Resp BP Pulse Ox 03/27/18 04:17 98.6 F 92 19 156/96 H 99 03/26/18 19:11 98.5 F 72 16 131/76 99 03/26/18 18:33 99 Weight Weight 63.957 kg I&O: 03/25/18 03/26/18 03/27/18 06:59 06:59 06:59 Intake Total 0 Balance 0 Result Diagrams: 03/27/18 04:14 03/27/18 04:14 <Ab Mathew - Last Filed: 03/27/18 08:47> - Objective Vital Signs & Weight: Vital Signs (12 hours) Temp Pulse Resp BP Pulse Ox 03/27/18 15:38 70 16 143/84 H 99 03/27/18 15:17 98.4 F 70 15 143/84 H 98 03/27/18 13:20 98.6 F 65 18 151/89 H 99 03/27/18 11:15 169/92 H 03/27/18 11:12 176/99 H 03/27/18 11:11 72 03/27/18 08:17 72 03/27/18 07:32 98.8 F 72 19 179/107 H 99 03/27/18 04:17 98.6 F 92 19 156/96 H 99 Weight Weight 63.957 kg I&O: 03/26/18 03/27/18 03/28/18 06:59 06:59 06:59 Intake Total 360 Output Total 400 400 Balance -40 -400 Result Diagrams: 03/27/18 04:14 03/27/18 04:14 <Shira Youssef - Last Filed: 03/27/18 16:05> Phys Exam - Physical Examination Constitutional: NAD HEENT: moist MMs Neck: no JVD Respiratory: no wheezing, no rales Cardiovascular: RRR, no significant murmur Gastrointestinal: soft, non-tender, no distention, positive bowel sounds Musculoskeletal: no edema, pulses present Neurological: non-focal, normal sensation, moves all 4 limbs Psychiatric: A&O x 3 Skin: cap refill <2 seconds <Ab Mathew - Last Filed: 03/27/18 08:47> Dx/Plan (1) Acute kidney injury superimposed on chronic kidney disease Code(s): N17.9 - ACUTE KIDNEY FAILURE, UNSPECIFIED; N18.9 - CHRONIC KIDNEY DISEASE, UNSPECIFIED Status: Acute (2) NSTEMI (non-ST elevated myocardial infarction) Code(s): I21.4 - NON-ST ELEVATION (NSTEMI) MYOCARDIAL INFARCTION Status: Acute (3) HTN (hypertension) Code(s): I10 - ESSENTIAL (PRIMARY) HYPERTENSION Status: Chronic - Plan Plan: This is a 52 yo AA female with a PMH of HTN, [place] 12/18/17, CKD Likely Unstable angina vs. ACS vs. chostrocondritis -Troponin is negative x3. EKG shows improved findings compared to her last admission. Her story fits angina but her pain is reproducible. Pt. has a heart score of 5 based on findings. TSH was .964, LDL 88, HDL 61, Cholesterol 160, Triglycerides 56. Despite pt. risk factors, clinical picture is evolving more into unstable angina vs. chostrocondritis. We will consult cardiology today for their recommendations on stress test vs. heart cath. HTN -Continue home coreg, norvasc and atorvastatin CKD -Aware, dosing lovenox accordingly Code: full Prophylaxis: 30mg lovenox Family: none at beside Disposition: home in 1-2 days <Ab Mathew - Last Filed: 03/27/18 08:47> Attending Addendum - Attending Addendum Date/Time: 03/27/18 [id number] I personally evaluated the patient and discussed the management with Dr. Mathew. I agree with the History, Examination, Assessment and Plan documented above with any addition or exceptions noted below. The patient's chest pain is reproducible to palpation. She declined a cath during her last visit but is now open to it. Will consult cards. <Shira Youssef - Last Filed: 03/27/18 16:05>
[2018-03-27 07:56] LABS: Troponin I 0.021 ng/mL (< 0.028)
[2018-03-27] MEDS: Amlodipine 10 MG TAB PO SCH (08:17)
[2018-03-27] MEDS: Carvedilol 6.25 MG TAB PO SCH ×2 (08:17→21:03)
[2018-03-27] MEDS ORDERED: Carvedilol 6.25 MG TAB PO SCH (09:00)
[2018-03-27 09:11] LABS: Troponin I 0.013 ng/mL (< 0.028)
[2018-03-27] MEDS ORDERED: Lidocaine 1% (PF) 30 ML VIAL ONE (11:05)
[2018-03-27] MEDS ORDERED: hydrALAZINE 20 MG/ML VIAL SLOW IVP SCH (11:15)
[2018-03-27] MEDS ORDERED: Fentanyl 100 MCG/2 ML VIAL ONE (11:45)
[2018-03-27] MEDS ORDERED: Midazolam HCl 2 mg/2 ml Vial ONE (11:45)
[2018-03-27] MEDS ORDERED: Acetaminophen/Codeine 30-300mg Tablet PO PRN ×2 (12:24)
[2018-03-27] MEDS ORDERED: traMADol HCl 50 MG TAB PO PRN (12:24)
[2018-03-27] MEDS ORDERED: Nitroglycerin 0.4 MG TAB (25 Tab Bottle) SL PRN (12:24)
[2018-03-27] MEDS ORDERED: Sodium Chloride 0.9% 200 ML IV SCH (12:30)
--- NOTE | 2018-03-27 13:45 | CON ---
DATE OF CONSULTATION: 03/27/2018 HISTORY OF PRESENT ILLNESS: The patient is a 52-year-old woman with a history of poorly controlled hypertension who presents with recurrent chest discomfort. The patient was seen in December of this year with atypical chest pain. She was found to be markedly hypertensive. She had possible small non-Q-wave myocardial infarction. The patient had multiple risks for coronary artery disease and it was recommended to undergo further evaluation. The patient declined to undergo a cardiac catheterization. The patient states she was at home and been compliant with her medications. She developed left-sided chest discomfort. This has been intermittent since yesterday. She states it is made worse with exertion. The patient denies having any PND or orthopnea. PAST MEDICAL HISTORY: Hypertension. PAST SURGICAL HISTORY: None. SOCIAL HISTORY: The patient continues to use tobacco. FAMILY HISTORY: Strong family history of heart disease. ALLERGIES: No known drug allergies. MEDICATIONS ON ADMISSION: Lipitor 80 at bedtime, Norvasc 10 daily, Coreg 12.5 b.i.d., and aspirin 81 daily. REVIEW OF SYSTEMS: Ten-point system otherwise unremarkable. PHYSICAL EXAMINATION: GENERAL: Thin woman who is anxious. VITAL SIGNS: Blood pressure was 179/99. NECK: No jugular distention, no carotid bruits. LUNGS: Clear to auscultation. HEART: Regular rate and rhythm, normal S1, S2, no murmurs. ABDOMEN: Nondistended. EXTREMITIES: No edema. LABORATORY RESULTS: Revealed her to have a sodium 139, potassium 3.8, chloride 105, bicarbonate 26, BUN 29, creatinine is 1.8, glucose 96, troponin 0.021. Her white blood cell count is 4.4, hemoglobin 10.5, hematocrit 33.5, and her platelets are 204. Her EKG reveals her to have normal sinus rhythm with T-wave abnormality suggestive of lateral ischemia. IMPRESSION: 1. Chest pain, possibly due to ischemic heart disease. 2. Hypertension. 3. Chronic renal insufficiency. 4. Tobacco abuse. This unfortunate woman presents with recurrently poorly controlled hypertension and chest discomfort. I discussed the options of noninvasive stress testing versus an invasive evaluation. The patient at this time prefers to undergo cardiac catheterization. She understands that the risk involved with cardiac catheterization including HI, bleeding, stroke, cardiac arrhythmia, and cardiac . The patient also understands the risks involved and developing worsening renal insufficiency and possible need for dialysis. PLAN: Proceed with cardiac catheterization. DEBI
[2018-03-27] MEDS: Nitroglycerin 2% Ointment 1 INCH/1 GM Packet TOP SCH ×2 (13:52→21:04)
[2018-03-27] MEDS ORDERED: Nitroglycerin 2% Ointment 1 INCH/1 GM Packet TOP SCH (14:00)
[2018-03-27] MEDS ORDERED: Iopamidol 370 76% 100 ML VIAL ONE (15:11)
[2018-03-27] MEDS: Nicotine 14 MG PATCH TD SCH (16:25)
[2018-03-27] MEDS ORDERED: Communication Order-Pharmacy FS ONE (16:48)
[2018-03-27] MEDS: Sodium Chloride 0.9% 1,000 ML IV SCH (18:21)
[2018-03-27] MEDS: Atorvastatin Calcium 40 MG TAB PO SCH (21:03)
[2018-03-27] MEDS: Enoxaparin Sodium 30 MG/0.3 ML SYRINGE SC SCH (21:04)
[2018-03-28] MEDS: Sodium Chloride 0.9% 1,000 ML IV SCH ×3 (04:12→21:04)
[2018-03-28 05:38] LABS: INR-International Normal Ratio 1.1; PTT 38.6 SEC (22.9-36.1); Prothrombin Time 14.7 SEC (12.0-14.7)
[2018-03-28 05:55] LABS: Anion Gap 13 mmol/L (10-20); BUN (Urea Nitrogen) 25 mg/dL (9.8-20.1); Calc. Creatinine Clearance 35 mL/min (70-130); Calcium 9.6 mg/dL (7.8-10.44); Carbon Dioxide 23 mmol/L (22-29); Chloride 107 mmol/L (98-107); Estimated GFR-MDRD 34; Glucose 82 mg/dL (70-105); Potassium 3.7 mmol/L (3.5-5.1); Sodium 139 mmol/L (136-145)
--- NOTE | 2018-03-28 07:48 | CON ---
DATE OF CONSULTATION: 03/27/2018 REQUESTING PHYSICIAN: Dr. Roe. CHIEF COMPLAINT: Chest pain. HISTORY OF PRESENT ILLNESS: The patient is a 52-year-old black woman with poorly controlled hyperten derian and renal insufficiency who smokes in December of this year and she presented with chest pressure, t ightness and shortness of breath and ruled in for a non-Q-wave myocardial infarction with peak a trop onin of around 4.45. She refused cardiac workup at that time and left the hospital AMA. She reporte heidy was compliant with her medications, but continued to smoke. She did well up until yesterday when she had onset of similar quality of chest pain that was much more severe than in December. She said hill t it felt like she could not even breathe, and the pain continued for a period of time. After arriva l at the emergency room at which time her blood pressure was in the 200/100 range. Once her pain res olved, she has remained pain-free. She agreed to undergo cardiac catheterization, which shows severe 3-vessel coronary disease. Because of her mild renal insufficiency, left ventriculography was defer red. She had an echocardiogram during her December hospitalization that showed concentric LVH with LVEF in the 50-55% range. PAST MEDICAL HISTORY: The patient's past medical history is significant for her hypertension and wendy al insufficiency. HOME MEDICATIONS: Norvasc 10 mg a day, Coreg 12.5 mg b.i.d., Lipitor 80 mg at bedtime, and a baby as pirin a day to that regimen, nitro paste 1 inch t.i.d., and Nicoderm patch have been added. She is a lso on Lovenox 30 mg subcu once a day. ALLERGIES: She reports an allergy to ORANGES which causes rash. She equivocated about aspirin sayin g she thinks it breaks her out, makes her feel "funny" when she takes an adult aspirin, but is able t o tolerate baby aspirin without any side effects. SOCIAL HISTORY: She has about a [id number] history of smoking when examiner elicited. FAMILY HISTORY: Family history of coronary disease with both parents dying of heart attacks in their 70s. When I spoke with the patient, she told me that her mother and her maternal grandmother o f heart attacks in their 70s and she was unclear about her father's medical history. REVIEW OF SYSTEMS: She has been having some ankle edema, but other than the shortness of breath asso ciated with the actual chest pain, she has not had any shortness of breath or dyspnea on exertion. S he has not had any orthopnea and she has not had any PND. She denies any transient high speech, faci al or extremity symptoms consistent with TIAs. She has not had any recent illnesses. She thinks hill t she has lost a little bit of weight. PHYSICAL EXAMINATION: GENERAL: On exam, she appears younger than her stated age. She is 5 feet 5 inches, weighs 141 pound s. VITAL SIGNS: Temperature is 98.6, heart rate 65, blood pressure 151/89 although even in the hospital , her systolics have approached 180 and she has had a diastolic as high as 107. In the emergency mary grace , her blood pressures range from about 180-200/95-110 for first 3-1/2 hours or so. It took about 4 hours to get her blood pressure down to 165/92. She has no xanthelasma. NECK: No JVD, no carotid bruits. CHEST: Clear to auscultation. CARDIOVASCULAR: She has regular rate and rhythm. ABDOMEN: Soft and nontender. EXTREMITIES: She has palpable radial, ulnar, and posterior tibial pulses bilaterally. On the left s elaina, her dorsalis pedis pulse is somewhat difficult to feel on the right. It is palpable, but dimini shed. She has some wrinkling of the skin at both ankles consistent with resolved edema. NEUROLOGIC: Grossly nonfocal. LABORATORY DATA: Her hemoglobin is 4. Her white count is 4.9, hemoglobin 10.4, hematocrit 33.2, marcello telets 217,000 with an MCV 75.6. Her iron was low at 44 with a binding capacity of 273 and a ferriti n of 104.39. Electrolytes were normal. Glucose 98, BUN 31, creatinine 2.04. On admission this morn ing, her BUN is 29, creatinine 1.88. Her liver function studies were normal. Protein 7.6, albumin 4 .2, calcium 9.7. Her GFR was around 30. Troponins initially were undetectable but peaked at 4:00 th is morning at 0.021 and then fell to 0.013 around 8:30 this morning. Her EKG shows some lateral T-wa ve inversions. Her chest x-ray was essentially normal with the possible exception of some mild cardi omegaly. Her cardiac catheterization shows a right dominant system with occlusion of her right coron ori artery with very faint filling of the distal branch vessels by left to right collaterals. She mohan s subtotal stenosis in her mid-LAD with a subtotal stenosis in a bifurcated diagonal just proximal to that and then high first diagonal that has a long smooth 60-70% lesion in it. It would appear that she also has a very high obtuse marginal with a long modest lesion in it and then a long high-grade l esion in the circumflex prior to the terminal marginal. Ventriculography was deferred. IMPRESSION AND PLAN: Severe three-vessel coronary artery disease and poorly controlled hypertensive woman with mild renal insufficiency. I will plan on hydrating overnight and repeating labs in the mo rning and tentatively plan on coronary artery bypass grafting. The day after tomorrow while the lorraine mccabe data probably does not hold out a survival advantage to cervical revascularization, the severity of her disease combined with the severity of her hypertension, I think makes it unrealistic to think that she will be able to get adequate symptomatic control without surgical revascularization.
[2018-03-28] MEDS: Carvedilol 6.25 MG TAB PO SCH (08:20)
[2018-03-28] MEDS: Amlodipine 10 MG TAB PO SCH (08:20)
--- NOTE | 2018-03-28 08:20 | PDOC.FM ---
- Subjective Subjective: Pt. reports cardiology came by and discussed the plan for her. She states having an understanding. She reports improved chest pain, no nausea or vomiting , and no troubles with urination or BMs. She states that cardiology wanted to give her kidneys a rest and that was the reasoning for the CABG tomorrow. - Objective MAR Reviewed: Yes Vital Signs & Weight: Vital Signs (12 hours) Temp Pulse Resp BP BP Pulse Ox 03/28/18 04:00 98.6 F 66 16 134/80 98 03/28/18 00:00 138/77 03/27/18 21:03 161/90 H Weight Weight 64.546 kg I&O: 03/27/18 03/28/18 03/29/18 06:59 06:59 06:59 Intake Total 360 2875 Output Total 400 950 Balance -40 192 Result Diagrams: 03/27/18 04:14 03/28/18 05:18 <Ab Mathew - Last Filed: 03/28/18 13:23> - Objective Vital Signs & Weight: Vital Signs (12 hours) Temp Pulse Resp BP BP Pulse Ox 03/28/18 17:01 98.3 F 65 16 140/86 99 03/28/18 11:46 98.6 F 69 18 151/81 H 100 03/28/18 10:13 161/90 H 03/28/18 08:20 66 161/90 H 03/28/18 08:17 98.3 F 66 16 164/79 H 100 Weight Weight 64.546 kg I&O: 03/27/18 03/28/18 03/29/18 06:59 06:59 06:59 Intake Total 360 2875 Output Total 400 950 Balance -40 1924 Result Diagrams: 03/27/18 04:14 03/28/18 05:18 <Shiar Youssef - Last Filed: 03/28/18 17:12> Phys Exam - Physical Examination Constitutional: NAD HEENT: moist MMs Neck: no JVD, full ROM Respiratory: no wheezing, clear to auscultation bilateral Cardiovascular: RRR, no significant murmur Tele shows NSR Gastrointestinal: soft, non-tender, no distention, positive bowel sounds Musculoskeletal: no edema, pulses present Neurological: moves all 4 limbs Psychiatric: normal affect, A&O x 3 Skin: cap refill <2 seconds <Ab Matehw - Last Filed: 03/28/18 13:23> Dx/Plan (1) Acute kidney injury superimposed on chronic kidney disease Code(s): N17.9 - ACUTE KIDNEY FAILURE, UNSPECIFIED; N18.9 - CHRONIC KIDNEY DISEASE, UNSPECIFIED Status: Acute (2) NSTEMI (non-ST elevated myocardial infarction) Code(s): I21.4 - NON-ST ELEVATION (NSTEMI) MYOCARDIAL INFARCTION Status: Acute (3) HTN (hypertension) Code(s): I10 - ESSENTIAL (PRIMARY) HYPERTENSION Status: Chronic - Plan Plan: This is a 52 yo AA female with a PMH of HTN, [place] 12/18/17, CKD Likely Unstable angina vs. ACS vs. chostrocondritis -Troponin is negative x3. EKG shows improved findings compared to her last admission. Her story fits angina but her pain is reproducible. Pt. has a heart score of 5 based on findings. TSH was .964, LDL 88, HDL 61, Cholesterol 160, Triglycerides 56. Pt. had heart cath yesterday that revealed significant stenosis of the LAD, LCX, and RCA. Based on these findings, pt. will be taken back for a CABG on 03/29. Pt. will be NPO after midnight. HTN -Continue home coreg, norvasc and atorvastatin CKD -Aware, dosing lovenox accordingly Code: full Prophylaxis: 30mg lovenox Family: none at beside Disposition: home in 1-2 days <Ab Mathew - Last Filed: 03/28/18 13:23> Attending Addendum - Attending Addendum Date/Time: 03/28/18 4062 I personally evaluated the patient and discussed the management with Dr. Mathew. I agree with the History, Examination, Assessment and Plan documented above with any addition or exceptions noted below. Pt with significant CAD on cath. Will have CABG tomorrow. <Shira Youssef - Last Filed: 03/28/18 17:12>
[2018-03-28] MEDS: Nitroglycerin 2% Ointment 1 INCH/1 GM Packet TOP SCH ×3 (08:21→21:05)
[2018-03-28] MEDS ORDERED: Carvedilol 25 MG TAB PO SCH (09:00)
[2018-03-28] MEDS ORDERED: Carvedilol 6.25 MG TAB PO SCH (09:45)
[2018-03-28] MEDS: Nicotine 14 MG PATCH TD SCH (17:08)
[2018-03-28] MEDS: Atorvastatin Calcium 40 MG TAB PO SCH (21:05)
[2018-03-28] MEDS: Enoxaparin Sodium 30 MG/0.3 ML SYRINGE SC SCH (21:05)
[2018-03-28] MEDS: Carvedilol 25 MG TAB PO SCH (21:05)
[2018-03-29] MEDS: Carvedilol 25 MG TAB PO SCH (05:06)
--- NOTE | 2018-03-29 05:31 | PDOC.FM ---
- Subjective Subjective: Pt was taken for cath and transfered to [facility]. Nursing reports she has been waking up some and family has been by. - Objective MAR Reviewed: Yes Vital Signs & Weight: Vital Signs (12 hours) Temp Pulse Resp BP BP Pulse Ox 03/29/18 04:00 98.9 F 63 14 127/63 98 03/28/18 20:00 98.7 F 63 14 151/87 H 98 Weight Weight 64.546 kg I&O: 03/27/18 03/28/18 03/29/18 06:59 06:59 06:59 Intake Total 360 2875 2004 Output Total 400 950 Balance -40 1925 2004 Result Diagrams: 03/29/18 15:30 03/29/18 15:30 <Ab Mathew - Last Filed: 03/29/18 17:20> - Objective Vital Signs & Weight: Vital Signs (12 hours) Temp Pulse Pulse Pulse Resp BP BP 04/02/18 15:16 76 04/02/18 15:12 98.8 F 76 18 04/02/18 11:08 99.1 F 74 16 04/02/18 09:36 86 97 156/101 H 04/02/18 09:26 91 79 156/101 H 04/02/18 09:05 82 148/84 H 04/02/18 09:04 99.3 F 82 18 04/02/18 08:33 BP BP Pulse Ox 04/02/18 15:16 04/02/18 15:12 165/95 H 98 04/02/18 11:08 141/79 H 95 04/02/18 09:36 179/107 H 04/02/18 09:26 142/78 H 04/02/18 09:05 96 04/02/18 09:04 148/84 H 96 04/02/18 08:33 97 Weight Admit Weight 71.3 kg Weight 65.317 kg Most Recent Monitor Data Heart Rate from ECG 72 NIBP 111/73 NIBP BP-Mean 85 Respiration from ECG 18 SpO2 97 I&O: 04/01/18 04/02/18 04/03/18 06:59 06:59 06:59 Intake Total 1560 960 480 Output Total 2180 750 Balance -620 210 480 Result Diagrams: 04/02/18 04:37 04/02/18 04:37 <Marlene Candelaria - Last Filed: 04/02/18 16:28> Phys Exam - Physical Examination Constitutional: NAD HEENT: moist MMs Neck: no JVD Pt. is intubated and has good air movement Chest tubes in place Cardiovascular: RRR, no significant murmur Gastrointestinal: soft, no distention Musculoskeletal: pulses present Skin: normal turgor <Ab Mathew - Last Filed: 03/29/18 17:20> Dx/Plan (1) Acute kidney injury superimposed on chronic kidney disease Code(s): N17.9 - ACUTE KIDNEY FAILURE, UNSPECIFIED; N18.9 - CHRONIC KIDNEY DISEASE, UNSPECIFIED Status: Acute (2) NSTEMI (non-ST elevated myocardial infarction) Code(s): I21.4 - NON-ST ELEVATION (NSTEMI) MYOCARDIAL INFARCTION Status: Acute (3) HTN (hypertension) Code(s): I10 - ESSENTIAL (PRIMARY) HYPERTENSION Status: Chronic - Plan Plan: This is a 52 yo AA female with a PMH of HTN, [place] 12/18/17, CKD Multi vessel heart with ACS -Troponin is negative x3. EKG shows improved findings compared to her last admission. Her story fits angina but her pain is reproducible. Pt. has a heart score of 5 based on findings. TSH was .964, LDL 88, HDL 61, Cholesterol 160, Triglycerides 56. Pt. had heart cath yesterday that revealed significant stenosis of the LAD, LCX, and RCA. Based on these findings, pt. will be taken back for a CABG today and is currently NPO. We will continue to appreciate cardiology and cv surgery recommendations. DAMON is currently in the process of setting patient up with PCP in [facility]. HTN -Continue home coreg, norvasc and atorvastatin CKD -Aware, dosing lovenox accordingly Code: full Prophylaxis: 30mg lovenox Family: none at beside Disposition: home in 1-2 days <QuincyAb - Last Filed: 03/29/18 17:20> (1) Acute kidney injury superimposed on chronic kidney disease Code(s): N17.9 - ACUTE KIDNEY FAILURE, UNSPECIFIED; N18.9 - CHRONIC KIDNEY DISEASE, UNSPECIFIED Status: Acute (2) NSTEMI (non-ST elevated myocardial infarction) Code(s): I21.4 - NON-ST ELEVATION (NSTEMI) MYOCARDIAL INFARCTION Status: Acute (3) HTN (hypertension) Code(s): I10 - ESSENTIAL (PRIMARY) HYPERTENSION Status: Chronic <Marlene Candelaria - Last Filed: 04/02/18 16:28> Attending Addendum - Attending Addendum Date/Time: 03/29/18 1766 I personally evaluated the patient and discussed the management with Dr. Mathew I agree with the History, Examination, Assessment and Plan documented above with any addition or exceptions noted below. Doing well postop. Remains on ventilator at this time. CT surg to manage at this time. ABrayMD <Marlene Candelaria - Last Filed: 04/02/18 16:28>
[2018-03-29] MEDS ORDERED: CEFAZOLIN 1 GM VIAL ONE ×2 (06:17→12:13)
[2018-03-29] MEDS ORDERED: Sodium Chloride 0.9% 100 ML ONE (06:17)
[2018-03-29] MEDS ORDERED: Albumin 5% 500 ML ONE (06:33)
[2018-03-29] MEDS ORDERED: Heparin 10,000 UNITS/1 ML VIAL 30,000 UNITS in Sodium Chloride 0.9% 1,000 ML FS SCH (06:45)
[2018-03-29] MEDS ORDERED: Midazolam HCl 5 mg/5 ml Vial ONE (06:56)
[2018-03-29] MEDS ORDERED: Fentanyl 250 MCG/5 ML VIAL ONE (06:56)
[2018-03-29] MEDS ORDERED: Vecuronium 10 MG VIAL ONE ×2 (06:57→12:51)
[2018-03-29] MEDS ORDERED: Norepinephrine 8 MG/0.9% NS 250 ML ONE (06:57)
[2018-03-29] MEDS ORDERED: Midazolam HCl 2 mg/2 ml Vial ONE (07:09)
[2018-03-29] MEDS ORDERED: Papaverine 60 MG/2 ML VIAL ONE ×2 (07:20→12:51)
[2018-03-29] MEDS ORDERED: Fentanyl 100 MCG/2 ML VIAL ONE (12:13)
[2018-03-29] MEDS ORDERED: Lidocaine 2% PF 100 mg/5 ml Syringe ONE (12:51)
[2018-03-29] MEDS ORDERED: Protamine Sulfate 250 MG/25 ML VIAL ONE (12:51)
[2018-03-29] MEDS ORDERED: Thrombin 5000 UNITS/5 ML VIAL ONE (12:51)
[2018-03-29] MEDS ORDERED: ePHEDrine/0.9% NaCl/PF SYRINGE 50 mg/10 ml ONE (12:51)
[2018-03-29] MEDS ORDERED: PROPOFOL 200 MG/20 ML VIAL ONE (12:51)
[2018-03-29] MEDS ORDERED: Potassium Chloride 60 MEQ/30 ML VIAL ONE (12:51)
[2018-03-29] MEDS ORDERED: Magnesium 5 GM/10 ML VIAL ONE (12:51)
[2018-03-29] MEDS ORDERED: Heparin 5,000 UNITS/ML VIAL ONE (12:51)
[2018-03-29] MEDS ORDERED: Sodium Bicarb 50 MEQ/50 ML VIAL ONE (12:51)
[2018-03-29] MEDS ORDERED: Aminocaproic Acid 5 GM/20 ML VIAL ONE (12:51)
[2018-03-29] MEDS ORDERED: Cardioplegic Soln 1,000 ML BAG ONE (12:51)
[2018-03-29] MEDS ORDERED: Calcium Chloride 1 GM/10 ML Abboject SYRINGE ONE (12:51)
[2018-03-29] MEDS ORDERED: Nitroglycerin 50 MG/250 ML BOT ONE (12:51)
[2018-03-29] MEDS ORDERED: Mannitol 12.5 GM/50 ML ONE (12:51)
[2018-03-29] MEDS ORDERED: Heparin 30,000 units/30 ml VIAL ONE (12:51)
[2018-03-29] MEDS ORDERED: Norepinephrine 8 MG/0.9% NS 250 ML IVPB PRN (14:09)
[2018-03-29] MEDS ORDERED: Post-Op Insulin Drip Protocol IVPB ONE (14:09)
[2018-03-29] MEDS ORDERED: Mag-Al 1200 mg/1200 mg/30 ML UDCUP PO PRN (14:09)
[2018-03-29] MEDS ORDERED: Bisacodyl 10 MG SUPP PR PRN (14:09)
[2018-03-29] MEDS ORDERED: Fentanyl 100 MCG/2 ML VIAL SLOW IVP PRN (14:09)
[2018-03-29] MEDS ORDERED: Bisacodyl 5 MG TAB PO PRN (14:09)
[2018-03-29] MEDS ORDERED: Promethazine HCl 25 MG/ML VIAL IM PRN (14:09)
[2018-03-29] MEDS ORDERED: Guaifenesin DM 100-10/5 ML UDCUP PO PRN (14:09)
[2018-03-29] MEDS ORDERED: Acetaminophen 325 MG TAB PO PRN (14:09)
[2018-03-29] MEDS ORDERED: Hetastarch 6% 500 ML 500 ML IVPB PRN (14:09)
[2018-03-29] MEDS ORDERED: Insulin Regular 300 UNITS/3 ML VIAL SC PRN (14:18)
[2018-03-29] MEDS ORDERED: Dextrose 50% Abboject 50 ML SYRINGE SLOW IVP PRN (14:18)
[2018-03-29] MEDS ORDERED: Dextrose 5% in Water 1,000 ML IV PRN (14:18)
[2018-03-29 15:22] LABS: Actual Bicarbonate (HCO3a) 22.4 mEq/L (22-28); Base Excess (BEa) -2.1 mEq/L (-2.0 to +3.0); CO2 Tension 37.5 mmHg (35.0-45.0); Hemoglobin (Hb) 10.3 g/dL (12.0-16.0); O2 Tension (PaO2) 83.1 mmHg (80.0-100.0); Potassium - ABG Lab 4.17 mmol/L (3.70-5.30)
[2018-03-29 15:23] LABS: ALV-art Gradient 297.825 (0-20); Puncture Site A-LINE
[2018-03-29] MEDS: Ondansetron HCl/PF 4 MG/2 ML Vial IVP PRN ×2 (15:30→23:07)
[2018-03-29] MEDS: Fentanyl 100 MCG/2 ML VIAL SLOW IVP PRN ×2 (15:46→21:50)
[2018-03-29 15:47] LABS: INR-International Normal Ratio 1.4; Prothrombin Time 17.6 SEC (12.0-14.7)
[2018-03-29] MEDS: Sodium Chloride 0.9% 1,000 ML IV SCH ×3 (15:48→17:10)
[2018-03-29 16:00] LABS: Anion Gap 8 mmol/L (10-20); BUN (Urea Nitrogen) 17 mg/dL (9.8-20.1); Calc. Creatinine Clearance 43 mL/min (70-130); Calcium 7.6 mg/dL (7.8-10.44); Carbon Dioxide 23 mmol/L (22-29); Chloride 112 mmol/L (98-107); Estimated GFR-MDRD 43; Glucose 154 mg/dL (70-105); Potassium 4.2 mmol/L (3.5-5.1); Sodium 139 mmol/L (136-145)
[2018-03-29 16:06] LABS: #Basophils 0.1 thou/uL (0.0-0.2); #Eosinphils 0.1 thou/uL (0.0-0.7); #Lymphocytes 1.2 thou/uL (1.20-3.40); #Monocytes 0.5 thou/uL (0.11-0.59); #Neutrophils 5.9 thou/uL (1.40-6.50); %Eosinophils 0.8 % (0.0-10.0); %Lymphocytes 15.4 % (21.0-51.0); %Monocytes 6.2 % (0.0-10.0); %Neutrophils 76.6 % (42.0-75.0); Anisocytosis SLIGHT = 6-15 cells (100X) (0-5/hpf); Hemoglobin 10.2 g/dL (12.0-16.0); MDiff Complete? YES; Mean Corpuscular HGB CONC 32.7 g/dL (32.0-36.0); Mean Corpuscular Hemoglobin 26.3 pg (27.0-31.0); Mean Corpuscular Volume 80.3 fL (78.0-98.0); Mean Platelet Volume 8.9 fL (7.4-10.4); PLT Morphology Comment Appears Decreased; Platelet Count 98 thou/uL (130-400); Poikilocytosis SLIGHT = 6-15 cells (100X) (0-5/hpf); RBC Distribution Width 15.7 % (11.5-14.5); Red Blood Cell (RBC) Count 3.88 mill/uL (4.20-5.40); White Blood Cell (WBC) Count 7.7 thou/uL (4.8-10.8)
--- NOTE | 2018-03-29 16:08 | RAD ---
PORTABLE SUPINE CHEST ONE VIEW: History: 52-year-old female, history post op open heart. FINDINGS: Left subclavian catheter and endotracheal tube and chest tubes in place with monitor leads overlying the chest. No significant pneumothorax. Minimal pleural and parenchymal changes in the left base, hanna dence for some subsegmental atelectasis and post op change. IMPRESSION: Subsegmental atelectasis and post-operative changes in the left base. No significant pneumothorax. Co ntinued short term follow up. POS: [facility]
[2018-03-29] MEDS: Nitroglycerin 50 MG/250 ML BOT 250 ML IVPB PRN (20:17)
[2018-03-29] MEDS ORDERED: Famotidine/PF 20 mg/2ml Vial SLOW IVP SCH (21:00)
--- NOTE | 2018-03-29 21:03 | OP ---
DATE OF PROCEDURE: 03/29/2018 PROCEDURES PERFORMED: Coronary artery bypass grafting x6 with left internal mammary artery to the LA D, sequential reverse greater saphenous vein graft from the aorta to the first diagonal to the second diagonal, sequential left radial artery graft from the aorta (osman of the diagonal vein graft proxim al anastomosis) to the first obtuse marginal to the second obtuse marginal, and reverse greater saphe nous vein graft from the aorta to the PDA. PREOPERATIVE DIAGNOSIS: Coronary artery disease. POSTOPERATIVE DIAGNOSIS: Coronary artery disease. SURGEON: Ash. BEFORE SCHOOL BABYSITTER: Dr. Agustin. ANESTHESIA: General endotracheal anesthesia. INDICATIONS: The patient is a 52-year-old black woman with severe hypertension. Last summer, she mohan d myocardial infarction, but refused much in the way of cardiac evaluation. She presented with recur rence of chest pain and shortness of breath and had somewhat equivocal troponins that did rise and fa ll. Cardiac catheterization demonstrated severe 3-vessel coronary disease. She is now taken to the operating room for surgical revascularization. FINDINGS: The pump time 128 minutes, cross clamp time 60 minutes. Good quality DARSHANA, radial artery a nd saphenous vein, all of the coronaries were diffusely diseased in a fairly poor quality with rock h tracie plaque through much of the course. The LAD was about 2 mm. The first diagonal were grafted was about a 1.5 or perhaps 2 mm. The second diagonal was grafted was a 1 mm branch of the diagonal. The first obtuse marginal was about a 2-2.5 mm vessel. The OM2 about 1.5-2 mm and the PDA was about 1 m m very poor quality vessel. The pericardium was closed. NARRATIVE REPORT: After informed consent was obtained, the patient was taken to the operating room a nd placed in supine position on the operating table. After the induction of general anesthesia, the patient's left upper chest was prepped and draped in sterile fashion. A triple-lumen central line ki t was used to cannulate the left subclavian vein by the Seldinger technique. A central line was plac ed there. All three ports easily aspirated and flushed. The line was secured. The patient's torso, groins, left upper extremity and bilateral lower extremities were prepped and draped in sterile [facility] ion. An diploma dental assistant endoscopically harvested the greater saphenous vein from the left side to the prox imal calf. I harvested the left radial artery from near its origin from the brachial artery to the w rist using a skin bridge technique. Prior to making the skin incision on the forearm, Doppler interr ogation showed maintenance of the palmar arch and digital vessels with the radial artery compressed a nd prior to the harvesting the radial artery once exposed, Doppler interrogation of the hand with the vessel occluded showed good Doppler signals in the palmar arch on each of the distal phalanges. Upo n division of the skeletonized radial artery at the level of the brachial artery, there was good back bleeding. The radial artery was cannulated distally with a small bore olive tip needle and distended with papaverine solution to relieve spasm and to verify adequacy of control of side branches. The w ounds were inspected for hemostasis and closed in layers of subcutaneous and subcuticular Vicryl. Th e vein harvest sites were likewise closed. A median sternotomy was performed. The right pleural spa ce was widely entered with performance of the sternotomy. An attempt was made at an extrapleural exp osure of the left DARSHANA, but the pleura there was too thin to facilitate that and it was opened widely as well. The left DARSHANA was mobilized with a pedicle from the xiphoid to the level of the subclavian v ein. Side branches were controlled with small Hemoclips. The patient was heparinized. The mammary was ligated and divided distally. There was good flow through the mammary which was instilled intral uminally with papaverine solution. The mammary bed was inspected for hemostasis. The DARSHANA retractors were placed with Fleming retractor. The pericardium was opened and marsupialized after having mobiliz ed the hilar reflections of the right pleura to allow for closure of the rent in the right pleura. A fter marsupialized in the pericardium, the aorta was palpated. It was soft. A double concentric pur sestring of 2-0 Ethibond was placed in the ascending aorta just within the pericardial reflection. A single pursestring was placed in the right atrial appendage. Aortic and venous cannulae were insert ed and secured by the pursestrings. Cardiopulmonary bypass was instituted and the patient was system ically cooled. The heart was examined and the vessels to be bypassed were identified. A longitudina l slit was made in the pericardium anterior to the left phrenic nerve through which the mammary pedic le could be passed. Without developing the plane between the aorta and the pulmonary artery, an aort ic cross clamp was applied and cardioplegia was administered through an aortic root needle. When arr est has been achieved, attention was turned to the circumflex system. The posterolateral OM was open ed at a relative soft spot and radial artery was anastomosed to it end-to-side with running 7-0 Prole ne suture orientating anastomosis perpendicular to the axis of the coronary. The first OM was then o pened and a [id number] anastomosis was constructed from the radial artery to the OM1 in a similar f ashion orienting the anastomosis parallel to the axis of the coronary. The distal right coronary sys tem was explored. The origin of the PDA was exposed where it ran deep to the epicardial fat and the great vein. It was a small vessel at the lower limits of what was deemed graftable. There was rock hard plaque at the crux. The PDA was opened and reverse greater saphenous vein was anastomosed to it with running 6-0 Prolene suture and the anastomosis was tested by flush and cold cardioplegia down t he graft. Attention was then turned to the diagonals. The first and second diagonals were both diff usely diseased, though somewhat small. There was a good quality branch coming off of the second diag onal which was grafted end-to-side. The main trunk of the first diagonal was no worse than the rest of the first diagonal. It was fairly large and it was selected for grafting constructing a side-to-s elaina anastomosis from the second diagonal vein graft to the first diagonal. Both of the diagonal jennifer ts were constructed parallel to the axis of the coronary. The LAD was then opened distally. There w as no particularly good spot to graft the vessel. The LAD was then grafted with the left mammary and a running 7-0 Prolene. The mammary pedicle was tacked to the epicardium. The aortic cross clamps w ere placed with the partial occluding clamp and aortotomy was made in the ascending aorta with a scal pel and punch incorporating the root needle site for the more proximal aortotomy. The PDA graft was anastomosed to that more proximal aortotomy. The sequential diagonal graft was anastomosed to the mo re distal aortotomy. A longitudinal venotomy was made in the osman of the diagonal proximal anastomos is and the sequential radial graft to the circumflex system was trimmed to length, spatulated and rosmery stomosed there. The grafts were allowed to backbleed and then included and the suture line secured. The partial occluding clamp was removed. The vein grafts were deaired. The bulldog was removed fro m all 3 of those grafts. The anastomoses were inspected for hemostasis. A left pleural drain was br ought out through a separate incision and secured to the skin and suture as well as a posterior peric ardial drain. Right atrial and right ventricular temporary epicardial pacing wires were placed. The patient was then easily from cardiopulmonary bypass. The aortic and venous cannulae were removed and the pursestring secured. Protamine was administered when hemostasis was adequate. An an terior mediastinal drain was placed and the pericardium easily closed over with running Vicryl. The sternum was reapproximated with #7 stainless steel wires. Fascia was closed over the wires with heav y Vicryl. Subcutaneous tissue was irrigated and reapproximated and the skin was closed with Vicryl s ubcuticular stitch. The wound were dressed and the patient was taken to the intensive care unit in s table condition.
[2018-03-29 21:13] LABS: Hemoglobin 9.9 g/dL (12.0-16.0)
[2018-03-29 21:29] LABS: Potassium 3.9 mmol/L (3.5-5.1)
[2018-03-29] MEDS: Potassium Chloride 20 MEQ/100 ML PREMIX BAG IVPB PRN (21:54)
[2018-03-29] MEDS: hydrALAZINE 20 MG/ML VIAL SLOW IVP PRN (22:55)
[2018-03-30] MEDS: hydrALAZINE 20 MG/ML VIAL SLOW IVP PRN (02:06)
[2018-03-30] MEDS: Nitroglycerin 50 MG/250 ML BOT 250 ML IVPB PRN ×2 (03:31→08:24)
[2018-03-30] MEDS: HYDROcodone/Acetaminophen 5/325 mg Tablet PO PRN ×3 (03:32→21:19)
[2018-03-30 04:22] LABS: #Basophils 0.1 thou/uL (0.0-0.2); #Lymphocytes 1.2 thou/uL (1.20-3.40); #Monocytes 1.1 thou/uL (0.11-0.59); #Neutrophils 11.6 thou/uL (1.40-6.50); %Basophils 0.8 % (0.0-1.0); %Lymphocytes 8.4 % (21.0-51.0); %Monocytes 7.7 % (0.0-10.0); %Neutrophils 83.1 % (42.0-75.0); Hemoglobin 10.1 g/dL (12.0-16.0); Mean Corpuscular Hemoglobin 25.6 pg (27.0-31.0); Mean Platelet Volume 9.8 fL (7.4-10.4); Platelet Count 120 thou/uL (130-400); RBC Distribution Width 15.8 % (11.5-14.5); Red Blood Cell (RBC) Count 3.93 mill/uL (4.20-5.40)
[2018-03-30] MEDS: Sodium Chloride 0.9% 1,000 ML IV SCH ×2 (04:42→08:26)
[2018-03-30 04:51] LABS: Anion Gap 10 mmol/L (10-20); BUN (Urea Nitrogen) 21 mg/dL (9.8-20.1); Calc. Creatinine Clearance 39 mL/min (70-130); Calcium 8.8 mg/dL (7.8-10.44); Carbon Dioxide 21 mmol/L (22-29); Chloride 113 mmol/L (98-107); Estimated GFR-MDRD 38; Glucose 117 mg/dL (70-105); Potassium 3.9 mmol/L (3.5-5.1); Sodium 140 mmol/L (136-145)
[2018-03-30] MEDS: Potassium Chloride 20 MEQ/100 ML PREMIX BAG IVPB PRN (05:46)
--- NOTE | 2018-03-30 06:18 | PDOC.FM ---
- Subjective Subjective: Pt. reports chest pain and hoarseness. She states she has been able to sip water and take some PO meds. Nurse reports she self extubated overnight and currently they are working on pain management. - Objective Vital Signs & Weight: Vital Signs (12 hours) Temp Pulse Resp BP Pulse Ox 03/30/18 04:00 96 03/30/18 03:00 98.8 F 03/30/18 02:06 92 152/74 H 03/30/18 00:00 18 03/29/18 23:26 92 124/65 03/29/18 23:00 97.8 F 03/29/18 22:55 91 144/82 H 03/29/18 22:00 16 03/29/18 20:00 14 98 03/29/18 19:00 98.4 F 03/29/18 18:36 91 121/79 Weight Admit Weight 71.3 kg Weight 72 kg Most Recent Monitor Data Heart Rate from ECG 80 NIBP 115/74 NIBP BP-Mean 87 Respiration from ECG 22 SpO2 95 I&O: 03/28/18 03/29/18 03/30/18 06:59 06:59 06:59 Intake Total 2875 3282 333 Output Total 950 1050 1220 Balance 5572 3423 -873 Result Diagrams: 03/30/18 03:40 03/30/18 03:40 <Ab Mathew - Last Filed: 03/30/18 12:09> - Objective Vital Signs & Weight: Vital Signs (12 hours) Temp Pulse BP Pulse Ox 03/30/18 12:00 98.7 F 03/30/18 08:25 92 161/78 H 03/30/18 08:00 98.2 F 95 03/30/18 07:58 94 L 03/30/18 04:00 96 03/30/18 03:00 98.8 F 03/30/18 02:06 92 152/74 H Weight Admit Weight 71.3 kg Weight 72 kg Most Recent Monitor Data Heart Rate from ECG 84 NIBP 136/95 NIBP BP-Mean 108 Respiration from ECG 26 SpO2 97 I&O: 03/29/18 03/30/18 03/31/18 06:59 06:59 06:59 Intake Total 3282 1655 482.9 Output Total 1050 1375 1100 Balance 2232 280 617.1 Result Diagrams: 03/30/18 03:40 03/30/18 03:40 <Shira Youssef - Last Filed: 03/30/18 13:09> Phys Exam - Physical Examination Constitutional: NAD Laying in bed with soft restraints on right arm. GCS 15 HEENT: moist MMs Neck: no JVD Respiratory: no wheezing, clear to auscultation bilateral Pt. breathing on own, good air movement Cardiovascular: RRR, no significant murmur Chest tubes in place, central line in place Gastrointestinal: soft, no distention Musculoskeletal: no edema, pulses present Neurological: moves all 4 limbs Psychiatric: A&O x 3 <Ab Mathew - Last Filed: 03/30/18 12:09> Dx/Plan (1) Acute kidney injury superimposed on chronic kidney disease Code(s): N17.9 - ACUTE KIDNEY FAILURE, UNSPECIFIED; N18.9 - CHRONIC KIDNEY DISEASE, UNSPECIFIED Status: Acute (2) NSTEMI (non-ST elevated myocardial infarction) Code(s): I21.4 - NON-ST ELEVATION (NSTEMI) MYOCARDIAL INFARCTION Status: Acute (3) HTN (hypertension) Code(s): I10 - ESSENTIAL (PRIMARY) HYPERTENSION Status: Chronic - Plan Plan: This is a 52 yo AA female with a PMH of HTN, [place] 12/18/17, CKD Multi vessel heart with ACS -Pt was taken for a heart cath yesterday and tolerated the procedure well. Pt. was returned to the IMCU in stable condition. Over night Pt. has had improving urine out put and chest tubes are in place with 170ml out overnight. Pt. extubated her self last night. We will continue to appreciate cardiology and CV surgery recommendations. -Troponin is negative x3. EKG shows improved findings compared to her last admission. Her story fits angina but her pain is reproducible. Pt. has a heart score of 5 based on findings. TSH was .964, LDL 88, HDL 61, Cholesterol 160, Triglycerides 56. HTN -Continue home coreg CKD -Aware Code: full Prophylaxis: pepcid Family: none at beside Disposition: home in 3-4 days <Ab Mathew - Last Filed: 03/30/18 12:09> Attending Addendum - Attending Addendum Date/Time: 03/30/18 1309 I personally evaluated the patient and discussed the management with Dr. Mathew. I agree with the History, Examination, Assessment and Plan documented above with any addition or exceptions noted below. Pt self-extubated overnight. Chests tubes in placed. Trying to wean nitro drip. Continue routine post-cabg mgmt per CV surg. <Shira Youssef - Last Filed: 03/30/18 13:09>
[2018-03-30] MEDS: Acetaminophen 1,000 MG in Premix Bag 1 BAG IVPB SCH ×2 (08:24→13:44)
[2018-03-30] MEDS: Furosemide 40 MG/4 ML VIAL SLOW IVP SCH ×2 (08:24→13:45)
[2018-03-30] MEDS: hydrALAZINE 25 MG TAB PO SCH ×3 (08:25→21:21)
[2018-03-30] MEDS: Carvedilol 6.25 MG TAB PO SCH ×2 (08:25→16:51)
--- NOTE | 2018-03-30 08:45 | RAD ---
CHEST ONE VIEW: History: Heart surgery. Follow up. Comparison: 03-29-18 FINDINGS: Cardiac silhouette is magnified by projection. Patient is rotated leftward. Pulmonary vasculature is upper limits of normal. Skin fold extends along the right chest. Endotracheal catheter no longer visi ble. Other lines and tubes are unchanged in position. clinical research monitor leads overlie the chest. IMPRESSION: Interval extubation. Otherwise stable radiographic appearance of the chest. POS: [facility]
[2018-03-30] MEDS ORDERED: Aspirin 81 mg Enteric Coated Tablet PO SCH (09:45)
--- NOTE | 2018-03-30 15:15 | EKG ---
Test Reason : Blood Pressure : / mmHG Vent. Rate : 081 BPM Atrial Rate : 081 BPM P-R Int : 154 ms QRS Dur : 080 ms QT Int : 416 ms P-R-T Axes : 064 -03 -50 degrees QTc Int : 483 ms Normal sinus rhythm Inferior infarct , age undetermined T wave abnormality, consider inferolateral ischemia Prolonged QT Abnormal ECG When compared with ECG of 26-MAR-2018 12:33, (Unconfirmed) QT has lengthened Confirmed by ASHLYN ASHLEY, DR. Burgos ([id number]) on 03/30/2018 3:14:47 PM Referred By: RAHEEM Confirmed By:DR. Loretta GOLDBERG MD
[2018-03-30] MEDS ORDERED: Acetaminophen 325 MG TAB PO PRN (20:00)
[2018-03-30] MEDS: Atorvastatin Calcium 40 MG TAB PO SCH (21:20)
[2018-03-30] MEDS: Famotidine 20 MG TAB PO SCH (21:20)
[2018-03-31] MEDS: HYDROcodone/Acetaminophen 5/325 mg Tablet PO PRN ×3 (04:34→21:48)
[2018-03-31] MEDS: Sodium Chloride 0.9% 1,000 ML IV SCH ×2 (04:40→22:13)
[2018-03-31 05:21] LABS: #Lymphocytes 1.4 thou/uL (1.20-3.40); #Monocytes 0.7 thou/uL (0.11-0.59); #Neutrophils 9.3 thou/uL (1.40-6.50); %Basophils 0.1 % (0.0-1.0); %Eosinophils 0.2 % (0.0-10.0); %Monocytes 6.4 % (0.0-10.0); %Neutrophils 81.4 % (42.0-75.0); Hemoglobin 9.3 g/dL (12.0-16.0); Mean Corpuscular HGB CONC 31.5 g/dL (32.0-36.0); Mean Corpuscular Hemoglobin 25.3 pg (27.0-31.0); Mean Corpuscular Volume 80.1 fL (78.0-98.0); Mean Platelet Volume 9.8 fL (7.4-10.4); Platelet Count 104 thou/uL (130-400); Red Blood Cell (RBC) Count 3.67 mill/uL (4.20-5.40); White Blood Cell (WBC) Count 11.5 thou/uL (4.8-10.8)
[2018-03-31 05:38] LABS: Anion Gap 11 mmol/L (10-20); BUN (Urea Nitrogen) 27 mg/dL (9.8-20.1); Calc. Creatinine Clearance 26 mL/min (70-130); Calcium 9.2 mg/dL (7.8-10.44); Carbon Dioxide 24 mmol/L (22-29); Chloride 106 mmol/L (98-107); Estimated GFR-MDRD 25; Glucose 110 mg/dL (70-105); Sodium 137 mmol/L (136-145)
--- NOTE | 2018-03-31 06:26 | PDOC.FM ---
- Subjective Subjective: Pt states that she is still having some chest soreness but over all she is feeling better. She reports no dyspnea, abdominal pain, or N/V. Pt. reports coughing up some phlegm. - Objective MAR Reviewed: Yes Vital Signs & Weight: Vital Signs (12 hours) Temp Pulse Resp BP BP Pulse Ox 03/31/18 03:38 98.2 F 76 16 127/78 92 L 03/30/18 23:55 98.2 F 75 20 124/83 98 03/30/18 21:21 64 112/79 03/30/18 20:20 98 F 64 20 112/79 100 Weight Admit Weight 71.3 kg Weight 64.229 kg Most Recent Monitor Data Heart Rate from ECG 72 NIBP 111/73 NIBP BP-Mean 85 Respiration from ECG 18 SpO2 97 I&O: 03/29/18 03/30/18 03/31/18 06:59 06:59 06:59 Intake Total 3282 1655 2973.9 Output Total 1050 1375 2865 Balance 2232 280 108.9 Result Diagrams: 03/31/18 04:28 03/31/18 04:28 <Ab Mathew - Last Filed: 03/31/18 09:58> - Objective Vital Signs & Weight: Vital Signs (12 hours) Temp Pulse Pulse Pulse Resp BP BP 03/31/18 14:56 78 03/31/18 12:30 98.3 F 78 16 03/31/18 12:25 86 74 125/83 03/31/18 11:35 80 82 135/75 03/31/18 08:12 85 03/31/18 08:11 132/77 03/31/18 08:04 98.3 F 85 18 03/31/18 03:38 98.2 F 76 16 BP BP Pulse Ox Pulse Ox Pulse Ox 03/31/18 14:56 03/31/18 12:30 130/80 97 03/31/18 12:25 123/83 88 L 93 L 03/31/18 11:35 132/73 100 03/31/18 08:12 03/31/18 08:11 03/31/18 08:04 132/77 96 03/31/18 03:38 127/78 92 L Weight Admit Weight 71.3 kg Weight 64.229 kg Most Recent Monitor Data Heart Rate from ECG 72 NIBP 111/73 NIBP BP-Mean 85 Respiration from ECG 18 SpO2 97 I&O: 03/30/18 03/31/18 04/01/18 06:59 06:59 06:59 Intake Total 1655 2973.9 Output Total 1375 2865 525 Balance 280 108.9 -525 Result Diagrams: 03/31/18 04:28 03/31/18 04:28 <Shira Youssef - Last Filed: 03/31/18 15:37> Phys Exam - Physical Examination Constitutional: NAD HEENT: moist MMs Neck: no JVD Respiratory: no wheezing, clear to auscultation bilateral Cardiovascular: RRR, no significant murmur Chest tubes, central line, and wound dressings are in place Gastrointestinal: soft, non-tender Musculoskeletal: no edema, pulses present Left foot and left hand are solange wrapped currently Neurological: normal sensation, moves all 4 limbs Psychiatric: A&O x 3 Deviation from normal: Improving mood and dispostion <Ab Mathew - Last Filed: 03/31/18 09:58> Dx/Plan (1) Acute kidney injury superimposed on chronic kidney disease Code(s): N17.9 - ACUTE KIDNEY FAILURE, UNSPECIFIED; N18.9 - CHRONIC KIDNEY DISEASE, UNSPECIFIED Status: Acute (2) NSTEMI (non-ST elevated myocardial infarction) Code(s): I21.4 - NON-ST ELEVATION (NSTEMI) MYOCARDIAL INFARCTION Status: Acute (3) HTN (hypertension) Code(s): I10 - ESSENTIAL (PRIMARY) HYPERTENSION Status: Chronic - Plan Plan: This is a 52 yo AA female with a PMH of HTN, [place] 12/18/17, CKD Multi vessel heart with ACS -Pt was taken for a heart cath on 03/29 and tolerated the procedure well. Pt. was returned to the IM in stable condition. Over night Pt. had adequate urine out put and chest tubes are in place with 90ml out overnight. Pt. is satting well on 2L NC. We will continue to appreciate cardiology and CV surgery recommendations. PT, OT, and cardiac rehab have been consulted and we will appreciate their recommendations. Pt. came from home and will need support at the time of discharge. -Troponin is negative x3. EKG shows improved findings compared to her last admission. Her story fits angina but her pain is reproducible. Pt. has a heart score of 5 based on findings. TSH was .964, LDL 88, HDL 61, Cholesterol 160, Triglycerides 56. HTN -Continue home coreg CKD -Aware Code: full Prophylaxis: pepcid Family: none at beside Disposition: home in 3-4 days. Pt reports her [id number] will help her with recovery. <Ab Mathew - Last Filed: 03/31/18 09:58> Attending Addendum - Attending Addendum Date/Time: 03/31/18 8333 I personally evaluated the patient and discussed the management with Dr. Mathew. I agree with the History, Examination, Assessment and Plan documented above with any addition or exceptions noted below. The patient is doing well following CABG. Moved out of ICU yesterday. Will continue supportive care. <Sihra Youssef - Last Filed: 03/31/18 15:37>
[2018-03-31] MEDS: Carvedilol 6.25 MG TAB PO SCH ×2 (08:11→17:36)
[2018-03-31] MEDS: Aspirin 81 mg Enteric Coated Tablet PO SCH (08:12)
[2018-03-31] MEDS: hydrALAZINE 25 MG TAB PO SCH ×3 (08:12→20:31)
--- NOTE | 2018-03-31 16:13 | EKG ---
Test Reason : CHEST PAIN Blood Pressure : / mmHG Vent. Rate : 061 BPM Atrial Rate : 061 BPM P-R Int : 160 ms QRS Dur : 096 ms QT Int : 420 ms P-R-T Axes : 054 -02 -33 degrees QTc Int : 422 ms Normal sinus rhythm T wave abnormality, consider lateral ischemia Abnormal ECG No changes 18-DEC-2017 Confirmed by GIANCARLO ASHLEY, MAKEDA ([id number]), online content editor HAIR LEE ([id number]) on 03/31/2018 4:13:07 PM Referred By: MALICK Confirmed By:MAKEDA MONDRAGON MD
--- NOTE | 2018-03-31 16:45 | PDOC.CTH ---
Cardiology Progress Note - Subjective No new issues. Sore. - Objective Vital Signs Temp Pulse Pulse Pulse Resp BP BP 03/31/18 16:34 98.8 F 88 18 03/31/18 14:56 78 03/31/18 12:30 98.3 F 78 16 03/31/18 12:25 86 74 125/83 03/31/18 11:35 80 82 135/75 03/31/18 08:12 85 03/31/18 08:11 132/77 03/31/18 08:04 98.3 F 85 18 BP BP Pulse Ox Pulse Ox Pulse Ox 03/31/18 16:34 131/78 95 03/31/18 14:56 03/31/18 12:30 130/80 97 03/31/18 12:25 123/83 88 L 93 L 03/31/18 11:35 132/73 100 03/31/18 08:12 03/31/18 08:11 03/31/18 08:04 132/77 96 Admit Weight 157 lb 3.033 oz Weight 141 lb 9.6 oz 03/30/18 03/31/18 04/01/18 06:59 06:59 06:59 Intake Total 1655 2973.9 Output Total 1375 2865 525 Balance 280 108.9 -525 - Physical Examination General/Neuro: alert & oriented x3, NAD Neck: no JVD present Lungs: CTA, unlabored respirations Heart: RRR Abdomen: NT/ND Extremities: + edema B (1+) - Telemetry Telemetry Rhythm: NSR - Labs Result Diagrams: 03/31/18 04:28 03/31/18 04:28 Troponin/CKMB CK-MB (CK-2) 1.4 ng/mL (0-6.6) 03/26/18 13:13 Troponin I 0.013 ng/mL (< 0.028) 03/27/18 08:35 - Assessment/Plan 1. Multivessel CAD 2. S/P CABG. 3. JOLENE on CKD PLAN: - Continue to monitor creatinine - No ACEI due to JOLENE - Continue BB and Hydralazine.
[2018-03-31] MEDS: Atorvastatin Calcium 40 MG TAB PO SCH (20:30)
[2018-03-31] MEDS: Famotidine 20 MG TAB PO SCH (20:31)
[2018-04-01] MEDS: HYDROcodone/Acetaminophen 5/325 mg Tablet PO PRN ×2 (02:43→12:42)
[2018-04-01 05:21] LABS: #Eosinphils 0.1 thou/uL (0.0-0.7); #Lymphocytes 1.6 thou/uL (1.20-3.40); #Monocytes 0.6 thou/uL (0.11-0.59); #Neutrophils 7.2 thou/uL (1.40-6.50); %Basophils 0.1 % (0.0-1.0); %Eosinophils 0.7 % (0.0-10.0); %Lymphocytes 17.1 % (21.0-51.0); %Monocytes 6.7 % (0.0-10.0); %Neutrophils 75.5 % (42.0-75.0); Hemoglobin 8.3 g/dL (12.0-16.0); Mean Corpuscular HGB CONC 31.4 g/dL (32.0-36.0); Mean Corpuscular Hemoglobin 25.3 pg (27.0-31.0); Mean Corpuscular Volume 80.3 fL (78.0-98.0); Mean Platelet Volume 9.5 fL (7.4-10.4); Platelet Count 112 thou/uL (130-400); RBC Distribution Width 16.2 % (11.5-14.5); Red Blood Cell (RBC) Count 3.29 mill/uL (4.20-5.40); White Blood Cell (WBC) Count 9.6 thou/uL (4.8-10.8)
[2018-04-01 05:34] LABS: Anion Gap 10 mmol/L (10-20); BUN (Urea Nitrogen) 28 mg/dL (9.8-20.1); Calc. Creatinine Clearance 29 mL/min (70-130); Calcium 8.5 mg/dL (7.8-10.44); Carbon Dioxide 25 mmol/L (22-29); Chloride 105 mmol/L (98-107); Estimated GFR-MDRD 28; Glucose 94 mg/dL (70-105); Potassium 3.6 mmol/L (3.5-5.1); Sodium 136 mmol/L (136-145)
--- NOTE | 2018-04-01 05:56 | PDOC.FM ---
- Subjective Subjective: Pt. reports she is improving and her chest is less sore. She has been more active in the last 24 hours. She denies sob, abdominal pain, and N/V. - Objective MAR Reviewed: Yes Vital Signs & Weight: Vital Signs (12 hours) Temp Pulse Resp BP BP Pulse Ox 04/01/18 02:40 98.5 F 77 20 139/84 03/31/18 23:55 98.6 F 70 20 128/73 93 L 03/31/18 20:31 76 130/73 03/31/18 20:30 98.3 F 76 20 130/73 94 L Weight Admit Weight 71.3 kg Weight 63.866 kg Most Recent Monitor Data Heart Rate from ECG 72 NIBP 111/73 NIBP BP-Mean 85 Respiration from ECG 18 SpO2 97 I&O: 03/30/18 03/31/18 04/01/18 06:59 06:59 06:59 Intake Total 1655 2973.9 480 Output Total 1375 2865 1575 Balance 280 108.9 -1095 Result Diagrams: 04/01/18 04:55 04/01/18 04:55 <Ab Mathew - Last Filed: 04/01/18 09:20> - Objective Vital Signs & Weight: Vital Signs (12 hours) Temp Pulse Pulse Pulse Resp BP BP 04/01/18 15:28 98.1 F 83 18 04/01/18 14:41 78 04/01/18 12:54 81 78 144/80 H 04/01/18 11:20 98.3 F 78 18 04/01/18 09:01 80 04/01/18 09:00 133/80 04/01/18 07:05 98.8 F 80 18 BP BP BP Pulse Ox Pulse Ox 04/01/18 15:28 121/68 98 04/01/18 14:41 04/01/18 12:54 143/96 H 90 L 04/01/18 11:20 139/92 H 95 04/01/18 09:01 04/01/18 09:00 04/01/18 07:05 133/80 99 Weight Admit Weight 71.3 kg Weight 63.866 kg Most Recent Monitor Data Heart Rate from ECG 72 NIBP 111/73 NIBP BP-Mean 85 Respiration from ECG 18 SpO2 97 I&O: 09/04/01/18 04/02/18 06:59 06:59 06:59 Intake Total 2973.9 1560 Output Total 2865 2180 Balance 108.9 -620 Result Diagrams: 04/01/18 04:55 04/01/18 04:55 <Shira Youssef - Last Filed: 04/01/18 16:14> Phys Exam - Physical Examination Constitutional: NAD HEENT: moist MMs Neck: no JVD Respiratory: no wheezing, clear to auscultation bilateral Cardiovascular: RRR, no significant murmur Gastrointestinal: soft, non-tender Musculoskeletal: no edema, pulses present Neurological: moves all 4 limbs Psychiatric: A&O x 3 <Ab Mathew - Last Filed: 04/01/18 09:20> Dx/Plan (1) Acute kidney injury superimposed on chronic kidney disease Code(s): N17.9 - ACUTE KIDNEY FAILURE, UNSPECIFIED; N18.9 - CHRONIC KIDNEY DISEASE, UNSPECIFIED Status: Acute (2) NSTEMI (non-ST elevated myocardial infarction) Code(s): I21.4 - NON-ST ELEVATION (NSTEMI) MYOCARDIAL INFARCTION Status: Acute (3) HTN (hypertension) Code(s): I10 - ESSENTIAL (PRIMARY) HYPERTENSION Status: Chronic - Plan Plan: This is a 52 yo AA female with a PMH of HTN, [place] 12/18/17, CKD Multi vessel heart with ACS -Pt was taken for a heart cath on 03/29 and tolerated the procedure well. Over night Pt. had adequate urine out put and was discharged overnight. Chest tubes are in place. Pt. is satting well on 2L NC. We will continue to appreciate cardiology and CV surgery recommendations. PT, OT, and cardiac rehab have been consulted and we will appreciate their recommendations. Pt. came from home and will need support at the time of discharge. -Troponin is negative x3. EKG shows improved findings compared to her last admission. Her story fits angina but her pain is reproducible. Pt. has a heart score of 5 based on findings. TSH was .964, LDL 88, HDL 61, Cholesterol 160, Triglycerides 56. Pt. has no history of DM, I reduced her accuchecks to BID. CXR is pending. Anemia -Pt. Hgb is trending down, 8.3 this morning, down from 9.3. We would have a low threshold for transfusion in this patient 2/2 heart disease. HTN -Continue home coreg CKD -Aware Code: full Prophylaxis: pepcid Family: none at beside Disposition: home in 3-4 days. Pt reports her [id number] will help her with recovery. <Ab Mathew - Last Filed: 04/01/18 09:20> Attending Addendum - Attending Addendum Date/Time: 04/01/18 3511 I personally evaluated the patient and discussed the management with Dr. Mathew. I agree with the History, Examination, Assessment and Plan documented above with any addition or exceptions noted below. The patient is feeling much better. She denies complaints. Chest tube in place. Blood sugars have been controlled. <Shira Youssef - Last Filed: 04/01/18 16:14>
--- NOTE | 2018-04-01 08:07 | RAD ---
PORTABLE CHEST 1 VIEW: Date: 04/01/18 Time: 0510 hours HISTORY: CABG. FINDINGS/IMPRESSION: No significant interval change is seen since exam of 03/30/18. POS: [facility]
[2018-04-01] MEDS: Carvedilol 6.25 MG TAB PO SCH ×2 (09:00→17:21)
[2018-04-01] MEDS: Aspirin 81 mg Enteric Coated Tablet PO SCH (09:01)
[2018-04-01] MEDS: hydrALAZINE 25 MG TAB PO SCH ×3 (09:01→21:21)
--- NOTE | 2018-04-01 18:05 | PDOC.CTH ---
Cardiology Progress Note - Subjective No new issues. Very tender from CT sites. - Objective Vital Signs Temp Pulse Pulse Pulse Resp BP BP 04/01/18 17:21 133/80 04/01/18 16:24 72 73 140/88 04/01/18 15:43 04/01/18 15:28 98.1 F 83 18 04/01/18 14:41 78 04/01/18 12:54 81 78 144/80 H 04/01/18 11:20 98.3 F 78 18 04/01/18 09:01 80 04/01/18 09:00 133/80 04/01/18 07:05 98.8 F 80 18 BP BP BP Pulse Ox Pulse Ox Pulse Ox 04/01/18 17:21 04/01/18 16:24 117/72 90 L 93 L 04/01/18 15:43 98 04/01/18 15:28 121/68 98 04/01/18 14:41 04/01/18 12:54 143/96 H 90 L 04/01/18 11:20 139/92 H 95 04/01/18 09:01 04/01/18 09:00 04/01/18 07:05 133/80 99 Admit Weight 157 lb 3.033 oz Weight 140 lb 12.8 oz 03/31/18 04/01/18 04/02/18 06:59 06:59 06:59 Intake Total 2973.9 1560 Output Total 2865 2180 Balance 108.9 -620 - Physical Examination General/Neuro: alert & oriented x3, other: (In pain) Neck: no JVD present Lungs: CTA, unlabored respirations Heart: RRR Abdomen: NT/ND Extremities: + edema B (1+) - Telemetry Telemetry Rhythm: NSR - Labs Result Diagrams: 04/01/18 04:55 04/01/18 04:55 Troponin/CKMB CK-MB (CK-2) 1.4 ng/mL (0-6.6) 03/26/18 13:13 Troponin I 0.013 ng/mL (< 0.028) 03/27/18 08:35 - Assessment/Plan 1. Multivessel CAD 2. S/P CABG. 3. JOLENE on CKD, improving. PLAN: - Continue to monitor creatinine - No ACEI due to JOLENE - Continue BB and Hydralazine. - Pain driving a lot of her BP.
[2018-04-01] MEDS: Famotidine 20 MG TAB PO SCH (21:20)
[2018-04-01] MEDS: Atorvastatin Calcium 40 MG TAB PO SCH (21:21)
[2018-04-02] MEDS: HYDROcodone/Acetaminophen 5/325 mg Tablet PO PRN ×2 (00:44→12:22)
[2018-04-02 05:31] LABS: Anion Gap 10 mmol/L (10-20); BUN (Urea Nitrogen) 28 mg/dL (9.8-20.1); Calc. Creatinine Clearance 33 mL/min (70-130); Calcium 8.6 mg/dL (7.8-10.44); Carbon Dioxide 24 mmol/L (22-29); Chloride 104 mmol/L (98-107); Estimated GFR-MDRD 31; Glucose 106 mg/dL (70-105); Potassium 3.3 mmol/L (3.5-5.1); Sodium 135 mmol/L (136-145)
--- NOTE | 2018-04-02 05:56 | PDOC.FM ---
- Subjective Subjective: Pt. reports increased chest pain today. She believes it is due to working with cardiac rehab. She reports the pain as her chest wall and denies any cardiac pain. She denies sob, n/v, or abdominal pain. - Objective MAR Reviewed: Yes Vital Signs & Weight: Vital Signs (12 hours) Temp Pulse Resp BP BP Pulse Ox 04/02/18 04:00 98.6 F 75 18 144/84 H 04/01/18 21:21 75 130/74 04/01/18 20:00 99.0 F 75 20 130/74 97 Weight Admit Weight 71.3 kg Weight 65.317 kg Most Recent Monitor Data Heart Rate from ECG 72 NIBP 111/73 NIBP BP-Mean 85 Respiration from ECG 18 SpO2 97 I&O: 03/31/18 04/01/18 04/02/18 06:59 06:59 06:59 Intake Total 2973.9 1560 960 Output Total 2865 2180 750 Balance 108.9 -620 210 Result Diagrams: 04/02/18 04:37 04/02/18 04:37 Phys Exam - Physical Examination Constitutional: NAD HEENT: moist MMs Neck: no JVD Respiratory: no wheezing, clear to auscultation bilateral Cardiovascular: RRR, no significant murmur All chest tubes are removed Gastrointestinal: soft, non-tender, no distention, positive bowel sounds Musculoskeletal: no edema, pulses present Neurological: moves all 4 limbs Psychiatric: A&O x 3 Skin: cap refill <2 seconds Dx/Plan (1) Acute kidney injury superimposed on chronic kidney disease Code(s): N17.9 - ACUTE KIDNEY FAILURE, UNSPECIFIED; N18.9 - CHRONIC KIDNEY DISEASE, UNSPECIFIED Status: Acute (2) NSTEMI (non-ST elevated myocardial infarction) Code(s): I21.4 - NON-ST ELEVATION (NSTEMI) MYOCARDIAL INFARCTION Status: Acute (3) HTN (hypertension) Code(s): I10 - ESSENTIAL (PRIMARY) HYPERTENSION Status: Chronic - Plan Plan: This is a 52 yo AA female with a PMH of HTN, [place] 12/18/17, CKD Multi vessel heart with ACS -Pt was taken for a heart cath on 03/29 and tolerated the procedure well. Pt. is satting well on RA. We will continue to appreciate cardiology and CV surgery recommendations. Cardiac rehab has been working with pt. and is primary rehab at this point. We will appretieate their recommendations. Pt. came from home and will need support at the time of discharge. Pt. had an 11 beat run of SVT yesterday. I instructed the nursing staff to inform CV surgery and cardiology as well as us. -Troponin is negative x3. EKG shows improved findings compared to her last admission. Her story fits angina but her pain is reproducible. Pt. has a heart score of 5 based on findings. TSH was .964, LDL 88, HDL 61, Cholesterol 160, Triglycerides 56. Pt. has no history of DM, I reduced her accuchecks to BID. CXR is pending. Anemia -Pt. Hgb is stable today at 8.8 (8.3 yesterday) HTN -Continue home coreg CKD -Aware, BUN/Cr are improving each day. Code: full Prophylaxis: pepcid Family: none at beside Disposition: home in 2-3 days. Pt reports her [id number]-ek-vyk will help her with recovery.
[2018-04-02 06:52] LABS: #Eosinphils 0.1 thou/uL (0.0-0.7); #Lymphocytes 1.7 thou/uL (1.20-3.40); #Monocytes 0.5 thou/uL (0.11-0.59); #Neutrophils 5.3 thou/uL (1.40-6.50); %Eosinophils 1.8 % (0.0-10.0); %Lymphocytes 22.5 % (21.0-51.0); %Monocytes 6.9 % (0.0-10.0); %Neutrophils 68.8 % (42.0-75.0); Hemoglobin 8.8 g/dL (12.0-16.0); Mean Corpuscular HGB CONC 31.2 g/dL (32.0-36.0); Mean Corpuscular Hemoglobin 25.1 pg (27.0-31.0); Mean Corpuscular Volume 80.7 fL (78.0-98.0); Mean Platelet Volume 9.4 fL (7.4-10.4); Platelet Count 153 thou/uL (130-400); RBC Distribution Width 16.1 % (11.5-14.5); White Blood Cell (WBC) Count 7.7 thou/uL (4.8-10.8)
[2018-04-02 06:53] LABS: Anisocytosis SLIGHT = 6-15 cells (100X) (0-5/hpf); MDiff Complete? YES
[2018-04-02] MEDS: Aspirin 81 mg Enteric Coated Tablet PO SCH (09:05)
[2018-04-02] MEDS: hydrALAZINE 25 MG TAB PO SCH ×2 (09:05→15:16)
[2018-04-02] MEDS: Carvedilol 6.25 MG TAB PO SCH (09:06)
--- NOTE | 2018-04-02 12:01 | PRG ---
DATE OF SERVICE: 04/02/2018 SUBJECTIVE: Ms. Saul is several days post CABG. She is looking and feeling fine except for some ch est wall pain and incisional pain from her surgery. She had an asymptomatic 11-beat run of SVT, but she is already on carvedilol. From a clinical standpoint, she is stable and likely ready for dischar ge in 1-2 days in conjunction with Cardiology.
[2018-04-02] MEDS ORDERED: Potassium Chloride 20 MEQ TAB PO SCH (14:45)
[2018-04-02 15:15] VITALS: BP 165/95; TEMP 98.8
[2018-04-02] MEDS ORDERED: Carvedilol 25 MG TAB PO SCH (17:00)
[2018-04-02] MEDS ORDERED: Atorvastatin Calcium 40 MG TAB PO SCH (21:00)
--- NOTE | 2018-04-02 23:22 | DIS ---
DATE OF ADMISSION: 03/26/2018 DATE OF DISCHARGE: 04/02/2018 PRINCIPAL DIAGNOSES: Coronary artery disease with non-ST elevation myocardial infarction, hypertensi on, and chronic renal insufficiency. PROCEDURES PERFORMED: Cardiac catheterization, 03/26/2018. Coronary artery bypass grafting x6 with left internal mammary artery to the LAD, sequential left radial artery graft from the aorta to the fi rst obtuse marginal to the second obtuse marginal, reverse greater saphenous vein graft to the PDA an d sequential reverse greater saphenous vein graft from the aorta to the first diagonal to the second diagonal, 03/29/2018. HISTORY OF PRESENT ILLNESS AND HOSPITAL COURSE: The patient is a 52-year-old black woman with severe hypertension and renal insufficiency, who this past summer had a myocardial infarction, but refused cardiac evaluation at that time. She did well until this presentation when she had onset of similar pain, more severe than that which she experienced in December. She was markedly hypertensive in the [facility] room. Her troponins were marginal in magnitude but did rise and fall. Cardiac catheterization demonstrates severe three-vessel coronary artery disease. Her renal function tolerated the dye load . She underwent revascularization. She had diffusely diseased poor quality vessels. The PDA was pa rticularly small and poor-quality vessel. Left internal mammary graft was used for the LAD and a seq uential radial artery graft used for the two obtuse marginals. Saphenous vein was used for the diago nals and the PDA. She had an uncomplicated postoperative course being extubated the night of surgery and transferred to the telemetry unit the following day when her hypertension was brought under bett er control and was no longer requiring IV nitroglycerin. Her preoperative creatinine was 2.04, with hydration it came down into the one-eight, and then into the one-five, post-bypass, it peaked at 2.47 and at the time of discharge, it has come back down to 2.0. Her Coreg has been increased to 25 mg b .i.d., hydralazine 25 mg t.i.d. was added to her regimen, in addition to her Norvasc, she will be dis charged home now with those prescriptions. She is already on high-dose statin. I written her prescr iption for Vicodin as needed for pain. I will plan on seeing her in the office in around 2 weeks.
[2018-04-03] MEDS ORDERED: Clopidogrel Bisulfate 75 MG TAB PO SCH (09:00)
--- NOTE | 2018-04-03 09:18 | DIS-2 ---
DATE OF ADMISSION: 03/26/2018 DATE OF DISCHARGE: 04/02/2018 ADMITTING ATTENDING: Dr. Marlene Candelaria. DISCHARGE ATTENDING: Dr. Elton London. RESIDENT: Ab Mathew DO. CONSULTS: Dr. Roe, Cardiology; Dr. Aleman, CV Surgery. PROCEDURES: 1. On 04/01/2018, chest x-ray, no significant interval changes seen since . 2. On 03/30, interval intubation, other stable radiographic findings in the chest. 3. On 03/29, operative note, coronary artery bypass grafting 6 with left internal mammary artery to left anterior descending, sequential reverse greater saphenous vein graft from the aorta to first diagonal to second diagonal, sequential left radial artery graft from aorta osman of diagonal vein to first obtuse marginal, and reverse of great saphenous vein from aorta to patent ductus arteriosus. 4. On 03/29, subsegmental atelectasis, postoperative changes, left base. No significant pneumothorax. Continue short-term follow up. 5. Chest x-ray on 03/26, showed cardiomegaly. PRIMARY DIAGNOSIS: Coronary artery disease with significant vessel stenosis. The patient had a heart catheterization on 03/26, showing 11 vessel disease. SECONDARY DIAGNOSES: Hypertension; chronic kidney disease, stage 3; history of myocardial infarction. DISCHARGE MEDICATIONS: 1. Amlodipine 10 mg p.o. daily. 2. Aspirin 81 mg p.o. daily. 3. Atorvastatin 80 mg p.o. at bedtime. 4. Carvedilol 25 mg p.o. b.i.d. 5. Clopidogrel 75 mg p.o. daily. 6. Hydralazine 25 mg p.o. t.i.d. 7. Hydrocodone/APAP 5/325 one p.o. q.4 hours p.r.n. pain. DISCONTINUED MEDICATIONS: None. BRIEF HISTORY OF PRESENT ILLNESS AND HOSPITAL COURSE: This is a 52-year-old -[place] female with past medical history of hypertension, NSTEMI 3 months ago, presented with chest pain after walking approximately a block and a half at the grocery store. At last visit with chest pain, the patient refuses heart catheterization at that time. At this time, the patient underwent heart catheterization showing 11 vessel disease. The patient was taken back for a 6- vessel CABG. Patient tolerated the procedure well and was returned to the [facility] , intubated, and was downgraded to tele where she continued to make a recovery. The patient's only complaint at the time of discharge was chest pain secondary to surgery and chapped lips. DISPOSITION: Stable. DISCHARGE INSTRUCTIONS: 1. Location: Home with family member and cardiac rehabilitation. 2. Diet: Heart healthy and carb consistent. 3. Activity: Cardiopulmonary limits. 4. Follow up with cardiac rehab with PCP, with Dr. Roe, with Dr. Aleman. DEBI
[2018-04-04 07:51] LABS: Actual Bicarbonate (HCO3a) 21.5 mEq/L (22-28); Analyzer IN Cardio OR; Base Excess (BEa) -4.4 mEq/L (-2.0 to +3.0); CO2 Tension 43.8 mmHg (35.0-45.0); Calcium, Ionized 1.04 mmol/L (1.12-1.30); Carboxyhemoglobin (COHb) 0.3 gm% (0.0-3.0); Hemoglobin (Hb) 7.1 g/dL (12.0-16.0); O2 Tension (PaO2) 392.6 mmHg (80.0-100.0); Potassium - ABG Lab 4.44 mmol/L (3.70-5.30); Puncture Site ALINE; pH, Arterial 7.31 (7.35-7.45)
[2018-04-04 07:52] LABS: Actual Bicarbonate (HCO3a) 16.7 mEq/L (22-28); Analyzer IN Cardio OR; Base Excess (BEa) -8.2 mEq/L (-2.0 to +3.0); CO2 Tension 32.2 mmHg (35.0-45.0); Calcium, Ionized 1.08 mmol/L (1.12-1.30); Carboxyhemoglobin (COHb) 0.1 gm% (0.0-3.0); Hemoglobin (Hb) 8.6 g/dL (12.0-16.0); O2 Tension (PaO2) 457.2 mmHg (80.0-100.0); Potassium - ABG Lab 3.52 mmol/L (3.70-5.30); Puncture Site ALINE; pH, Arterial 7.33 (7.35-7.45)
[2018-04-04 07:54] LABS: Actual Bicarbonate (HCO3a) 24.2 mEq/L (22-28); Analyzer IN Cardio OR; Base Excess (BEa) -1.3 mEq/L (-2.0 to +3.0); CO2 Tension 44.9 mmHg (35.0-45.0); Calcium, Ionized 1.01 mmol/L (1.12-1.30); O2 Tension (PaO2) 436.8 mmHg (80.0-100.0); Potassium - ABG Lab 4.25 mmol/L (3.70-5.30); pH, Arterial 7.35 (7.35-7.45)
[2018-04-04 07:55] LABS: Puncture Site ALINE
[2018-04-04 07:56] LABS: Actual Bicarbonate (HCO3a) 21.1 mEq/L (22-28); Analyzer IN Cardio OR; Base Excess (BEa) -4.2 mEq/L (-2.0 to +3.0); CO2 Tension 39.6 mmHg (35.0-45.0); Calcium, Ionized 0.99 mmol/L (1.12-1.30); Carboxyhemoglobin (COHb) 1.6 gm% (0.0-3.0); Hemoglobin (Hb) 5.9 g/dL (12.0-16.0); O2 Tension (PaO2) 312.3 mmHg (80.0-100.0); Potassium - ABG Lab 4.33 mmol/L (3.70-5.30); Puncture Site ALINE; pH, Arterial 7.34 (7.35-7.45)
[2018-04-04 07:57] LABS: Actual Bicarbonate (HCO3v) 24 mEq/L (22-28); Analyzer IN Cardio OR; Base Excess -1.5 mEq/L (-2.0 to +3.0); Calcium, Ionized 0.98 mmol/L (1.16-1.32); Chloride (ABG LAB) 112 mmol/L (98-106); Hemoglobin (Hb) 6.1 g/dL (11.7-16.0); Potassium - ABG Lab 4.29 mmol/L (3.70-5.30); Sodium 139.6 mmol/L (133-146); pH (venous) 7.32 (7.32-7.43)
[2018-04-04 07:58] LABS: Analyzer IN Cardio OR; Base Excess (BEa) -4.4 mEq/L (-2.0 to +3.0); CO2 Tension 29.1 mmHg (35.0-45.0); Calcium, Ionized 1.11 mmol/L (1.12-1.30); Carboxyhemoglobin (COHb) 0.4 gm% (0.0-3.0); Hemoglobin (Hb) 9.5 g/dL (12.0-16.0); Potassium - ABG Lab 3.43 mmol/L (3.70-5.30); pH, Arterial 7.43 (7.35-7.45)
[2018-04-04 07:59] LABS: Puncture Site ALINE
[2018-04-04 09:03] LABS: Actual Bicarbonate (HCO3a) 22.6 mEq/L (22-28); Analyzer IN Cardio OR; Base Excess (BEa) -3.2 mEq/L (-2.0 to +3.0); CO2 Tension 44.2 mmHg (35.0-45.0); Calcium, Ionized 1.03 mmol/L (1.12-1.30); Hemoglobin (Hb) 7.2 g/dL (12.0-16.0); O2 Tension (PaO2) 421.9 mmHg (80.0-100.0); Potassium - ABG Lab 4.16 mmol/L (3.70-5.30); pH, Arterial 7.33 (7.35-7.45)
[2018-04-04 09:03] LABS: Actual Bicarbonate (HCO3a) 21.6 mEq/L (22-28); Analyzer IN Cardio OR; Base Excess (BEa) -3.5 mEq/L (-2.0 to +3.0); Calcium, Ionized 0.99 mmol/L (1.12-1.30); Hemoglobin (Hb) 6.8 g/dL (12.0-16.0); O2 Tension (PaO2) 134.9 mmHg (80.0-100.0); Potassium - ABG Lab 3.79 mmol/L (3.70-5.30); pH, Arterial 7.36 (7.35-7.45)
[2018-04-04 09:04] LABS: Puncture Site ALINE
[2018-04-04 09:05] LABS: Puncture Site ALINE
== END 2018-04-02 16:35 | disposition home or self-care (01) | DRG 234 ==
LOC: ERS 12:24 → OBSVTOIN 15:30 → 2SW 15:30 → 2NO 03-27 20:05 → CCU 03-29 11:17 → 2NO 03-30 17:38
PROVIDERS: ADMIT Family Medicine; ATTEND Family Medicine
PROC: 4A023N7 Measurement of Cardiac Sampling and Pressure, Left Heart, Percutaneous Approach (ICD-10-PCS; 2018-03-27)
PROC: B2111ZZ Fluoroscopy of Multiple Coronary Arteries using Low Osmolar Contrast (ICD-10-PCS; 2018-03-27)
PROC: B2151ZZ Fluoroscopy of Left Heart using Low Osmolar Contrast (ICD-10-PCS; 2018-03-27)
PROC: 02100Z9 Bypass Coronary Artery, One Artery from Left Internal Mammary, Open Approach (ICD-10-PCS; principal; 2018-03-29)
PROC: 021209W Bypass Coronary Artery, Three Arteries from Aorta with Autologous Venous Tissue, Open Approach (ICD-10-PCS; 2018-03-29)
PROC: 02110AW Bypass Coronary Artery, Two Arteries from Aorta with Autologous Arterial Tissue, Open Approach (ICD-10-PCS; 2018-03-29)
DX: I25.110 Atherosclerotic heart disease of native coronary artery with unstable angina pectoris (principal); J98.11 Atelectasis; N17.9 Acute kidney failure, unspecified; I24.9 Acute ischemic heart disease, unspecified; I25.2 Old myocardial infarction; N18.3 Chronic kidney disease, stage 3 (moderate); I12.9 Hypertensive chronic kidney disease with stage 1 through stage 4 chronic kidney disease, or unspecified chronic kidney disease; Z79.899 Other long term (current) drug therapy; Z79.82 Long term (current) use of aspirin; Z91.018 Allergy to other foods; F17.210 Nicotine dependence, cigarettes, uncomplicated; D64.9 Anemia, unspecified; M94.0 Chondrocostal junction syndrome [Tietze]; I16.0 Hypertensive urgency
CPT/HCPCS: 36415; 36416; 36430; 71045; 80048; 80053; 80061; 82550; 82553; 82728; 82805; 83540; 83550; 83735; 84100; 84443; 84484; 85025; 85610; 85730; 86850; 86900; 86901; 93005; 93010; 93454; 93798; 94002; 94760; 96374; 99152; 99153; A4216; C1769; G8978-GP-CI; G8979-GP-CI; G8980-GP-CI; G8987-GO-CI; G8988-GO-CI; G8989-GO-CI; J0131; J0360; J0690; J1642; J1644; J1650; J1815; J1940; J2001; J2150; J2250; J2270; J2405; J2440; J2704; J2720; J3010; J3370; J3475; J3480; J7050; P9016; P9045; S0017; S0028

== ENCOUNTER 2018-10-22 12:43 | Emergency (ER) | payer SELFPAY ==
[2018-10-22 13:36] LABS: #Eosinphils 0.1 thou/uL (0.0-0.7); #Lymphocytes 1.4 thou/uL (1.20-3.40); #Monocytes 0.3 thou/uL (0.11-0.59); #Neutrophils 2.6 thou/uL (1.40-6.50); %Basophils 0.3 % (0.0-1.0); %Eosinophils 3.3 % (0.0-10.0); %Lymphocytes 30.6 % (21.0-51.0); %Monocytes 6.9 % (0.0-10.0); %Neutrophils 58.8 % (42.0-75.0); Hemoglobin 10.6 g/dL (12.0-16.0); Mean Corpuscular Hemoglobin 22.7 pg (27.0-31.0); Mean Platelet Volume 10.1 fL (7.4-10.4); Platelet Count 194 thou/uL (130-400); RBC Distribution Width 15.5 % (11.5-14.5); Red Blood Cell (RBC) Count 4.69 mill/uL (4.20-5.40); White Blood Cell (WBC) Count 4.4 thou/uL (4.8-10.8)
[2018-10-22 14:00] LABS: Anisocytosis SLIGHT = 6-15 cells (100X) (0-5/hpf); Hypochromia SLIGHT = 6-15 cells (100X) (0-5/hpf); MDiff Complete? YES; Microcytosis SLIGHT = 6-15 cells (100X) (0-5/hpf); Ovalocytes SLIGHT = 2-5 cells (100X) (0-1/hpf); Platelet Morphology Comment Appears Adequate; Polychromasia SLIGHT = 2-3 cells (100X) (0-2/hpf); Target Cells SLIGHT = 2-5 cells (100X) (0-1/hpf)
[2018-10-22 14:05] LABS: ALT (SGPT) 11 U/L (8-55); AST (SGOT) 17 U/L (5-34); Albumin 4.2 g/dL (3.5-5.0); Alkaline Phosphatase 61 U/L (40-150); Anion Gap 16 mmol/L (10-20); BUN (Urea Nitrogen) 39 mg/dL (9.8-20.1); Bilirubin, Total 0.6 mg/dL (0.2-1.2); Calc. Creatinine Clearance 0 mL/min (70-130); Calcium 9.5 mg/dL (7.8-10.44); Carbon Dioxide 22 mmol/L (22-29); Chloride 106 mmol/L (98-107); Estimated GFR-MDRD 22; Glucose 95 mg/dL (70-105); Potassium 3.5 mmol/L (3.5-5.1); Protein, Total 7.2 g/dL (6.0-8.3); Sodium 140 mmol/L (136-145)
== END 2018-10-22 14:55 | disposition home or self-care (01) ==
LOC: ERS 12:43
DX: I12.9 Hypertensive chronic kidney disease with stage 1 through stage 4 chronic kidney disease, or unspecified chronic kidney disease (principal); N18.9 Chronic kidney disease, unspecified; D63.1 Anemia in chronic kidney disease; R53.83 Other fatigue; I25.2 Old myocardial infarction; E78.5 Hyperlipidemia, unspecified; Z87.891 Personal history of nicotine dependence
CPT/HCPCS: 36415; 80053; 84484; 85025; 93005

== ENCOUNTER 2019-05-06 09:11 | Inpatient (IN) | payer SELFPAY ==
[2019-05-06 09:46] LABS: #Eosinphils 0.1 thou/uL (0.0-0.7); #Lymphocytes 1.5 thou/uL (1.20-3.40); #Monocytes 0.3 thou/uL (0.11-0.59); %Basophils 0.7 % (0.0-1.0); %Eosinophils 3.3 % (0.0-10.0); %Neutrophils 50.9 % (42.0-75.0); Hemoglobin 11.2 g/dL (12.0-16.0); Mean Corpuscular HGB CONC 31.9 g/dL (32.0-36.0); Mean Corpuscular Hemoglobin 24.3 pg (27.0-31.0); Mean Corpuscular Volume 76.2 fL (78.0-98.0); Mean Platelet Volume 10.2 fL (7.4-10.4); Platelet Count 180 thou/uL (130-400); RBC Distribution Width 14.7 % (11.5-14.5); Red Blood Cell (RBC) Count 4.62 mill/uL (4.20-5.40); White Blood Cell (WBC) Count 3.9 thou/uL (4.8-10.8)
[2019-05-06] MEDS ORDERED: hydrALAZINE 20 MG/ML VIAL ONE (09:53)
[2019-05-06 09:54] LABS: INR-International Normal Ratio 1.1; Prothrombin Time 13.9 SEC (12.0-14.7)
--- NOTE | 2019-05-06 10:00 | RAD ---
PORTABLE CHEST: Date: 05/06/19 PROVIDED CLINICAL HISTORY: Shortness of breath and chest pain. FINDINGS: Comparison with 12/26/18. Cardiac and mediastinal silhouette is unchanged in appearance. Median sternotomy changes are again se en. No focal consolidation, pleural fluid, or pneumothorax apparent. IMPRESSION: No evidence for an acute cardiopulmonary process. POS: [facility]
[2019-05-06 10:07] LABS: ALT (SGPT) 9 U/L (8-55); AST (SGOT) 16 U/L (5-34); Albumin 3.9 g/dL (3.5-5.0); Alkaline Phosphatase 59 U/L (40-110); Anion Gap 13 mmol/L (10-20); BUN (Urea Nitrogen) 28 mg/dL (9.8-20.1); Bilirubin, Total 0.5 mg/dL (0.2-1.2); Calc. Creatinine Clearance 0 mL/min (70-130); Calcium 9.3 mg/dL (7.8-10.44); Carbon Dioxide 25 mmol/L (22-29); Chloride 106 mmol/L (98-107); Estimated GFR-MDRD 25; Globulin 3.2 g/dL (2.4-3.5); Glucose 101 mg/dL (70-105); Potassium 3.7 mmol/L (3.5-5.1); Protein, Total 7.1 g/dL (6.0-8.3); Sodium 140 mmol/L (136-145)
[2019-05-06] MEDS ORDERED: Metoclopramide HCl 10 MG/2 ML VIAL ONE (10:12)
[2019-05-06] MEDS ORDERED: diphenhydrAMINE 50 MG/ML VIAL ONE (10:12)
--- NOTE | 2019-05-06 11:13 | CT ---
CT BRAIN PERFORMED WITHOUT CONTRAST ENHANCEMENT: Date: 05/06/19 HISTORY: Headache. COMPARISON: 12/18/17. FINDINGS: The ventricular and cisternal system is within normal limits. There is decreased attenuation to the p eriventricular white matter suggesting chronic white matter change. There are no signs of intracerebr al hemorrhage or extra-axial fluid collections. The mastoid air cells and visualized sinuses are jesi r. IMPRESSION: No acute intracranial abnormalities. POS: [facility]
[2019-05-06] MEDS ORDERED: Aspirin Chewable 81 MG TAB ONE (11:15)
[2019-05-06 12:55] LABS: Troponin I 0.033 ng/mL (< 0.028)
[2019-05-06 12:59] LABS: Amphetamine Not Detected (NotDetected); Barbiturates Screen Not Detected (NotDetected); Benzodiazepine Screen Not Detected (NotDetected); Cocaine Metabolite Screen Not Detected (NotDetected); Medtox Control Line Valid? VALID (VALID); Medtox Reader # READER 1; Methadone Not Detected (NotDetected); Methamphetamine Not Detected (NotDetected); Opiate Screen Not Detected (NotDetected); Oxycodone Screen Not Detected (NotDetected); Phencyclidine (PCP) Not Detected (NotDetected); THC/Cannabinoid Screen Detected (NotDetected); Tricyclic Screen Not Detected (NotDetected)
[2019-05-06] MEDS ORDERED: Nitroglycerin 0.4 MG TAB (25 Tab Bottle) PO PRN (13:00)
[2019-05-06] MEDS ORDERED: Senokot S 8.6-50 MG TAB PO PRN (13:00)
[2019-05-06] MEDS ORDERED: Bisacodyl 10 MG SUPP PR PRN (13:00)
[2019-05-06] MEDS ORDERED: Sodium Chloride 0.9% 1,000 ML IV SCH (13:00)
[2019-05-06] MEDS ORDERED: HYDROcodone/Acetaminophen 5/325 mg Tablet PO PRN (13:00)
[2019-05-06] MEDS ORDERED: Guaifenesin DM 100-10/5 ML UDCUP PO PRN (13:00)
[2019-05-06] MEDS ORDERED: Acetaminophen 325 MG TAB PO PRN (13:00)
[2019-05-06] MEDS: hydrALAZINE 25 MG TAB PO SCH ×2 (15:12→22:08)
[2019-05-06 16:27] LABS: Troponin I Less than 0.010 ng/mL (< 0.028)
[2019-05-06 17:52] VITALS: BMI 23.6
[2019-05-06] MEDS: Carvedilol 25 MG TAB PO SCH (18:06)
--- NOTE | 2019-05-06 22:02 | HP ---
REASON FOR ADMISSION: Hypertensive emergency, acute kidney injury, and chest pain. HISTORY OF PRESENTING ILLNESS: Patient gives history of "I'm feeling bad from last night." She also developed headache which was all over. She also developed shortness of breath this morning and her headache got worse. As the symptoms were getting worse, she made it to the emergency room. She has significant history of cardiac disease and has had CABG for 6-vessel disease last year. She last saw Dr. Roe in July of this year and has not been able to see him due to financial reasons. The patient states she is compliant with her medications. On arrival , had blood pressures of 240/120. Currently, her headache is better. Her systolic blood pressure has come down to around 160s. No complaints of current chest pain or palpitation now. The patient states she ambulates and does all her activities at home. PAST MEDICAL AND SURGICAL HISTORY: History of coronary artery disease with prior CABG for 6-vessel disease done last year by Dr. Aleman, hypertension, and dyslipidemia. CURRENT MEDICATION: 1. Atorvastatin 80 mg p.o. at bedtime. 2. Coreg 25 mg twice daily. 3. Hydralazine 25 mg three times daily. 4. Aspirin 81 mg p.o. daily. 5. Imdur 30 mg p.o. daily. ALLERGIES: ALLERGIC TO ORANGE. EMERGENCY DEPARTMENT COURSE: She was given 162 mg of aspirin here in the ER with no reactions. PERSONAL HISTORY: Smokes 1 to 2 cigarettes a day. Does not abuse alcohol or drugs. She lives with her daughter. FAMILY HISTORY: Mother at the age of 70. She has had history of coronary artery disease. Father in his 60s. He had stroke. He was disabled after he fell off from a building as well. CODE STATUS: Full. REVIEW OF SYSTEMS: CONSTITUTIONAL: Negative for weight loss or gain, ability to conduct usual activities. SKIN: Negative for rash, itching. EYES: Negative for double vision, pain. ENT/MOUTH: Negative for nose bleeding, neck stiffness, pain, tenderness. CARDIOVASCULAR: Negative for palpitations, dyspnea on exertion, orthopnea. RESPIRATORY: Negative for shortness of breath, wheezing, cough, hemoptysis, fever or night sweats. GASTROINTESTINAL: Negative for poor appetite, abdominal pain, heartburn, nausea , vomiting, constipation, or diarrhea. GENITOURINARY: Negative for urgency, frequency, dysuria, nocturia. MUSCULOSKELETAL: Negative for pain, swelling. NEUROLOGIC/PSYCHIATRIC: Negative for anxiety, depression. ALLERGY/IMMUNOLOGIC: Negative for skin rash, bleeding tendency. PHYSICAL EXAMINATION: GENERAL: Patient is a 53-year-old female, who is currently not in any acute distress. VITAL SIGNS: Blood pressure on arrival was 230/128, pulse 50 per minute, respiratory rate 18 per minute, temperature 98.3 degrees Fahrenheit, and saturating 97% on room air. NECK: Supple. No elevated JVD. HEENT: Eyes; extraocular muscles intact. Pupils reacting to light. Oral cavity, mucous membranes are dry. No exudates or congestion. CARDIOVASCULAR SYSTEM: S1-S2 heard. Regular rhythm. RESPIRATORY: Air entry 2+ bilateral. Scattered rhonchi plus, no rales or wheezes. ABDOMEN: Soft. Bowel sounds heard. No tenderness, rigidity, or guarding. EXTREMITIES: No peripheral edema or calf tenderness. VASCULAR SYSTEM: Peripheral pulses 2+ bilateral. No ischemic ulcerations or gangrene. CENTRAL NERVOUS SYSTEM: No gross focal deficits noted. Patient is alert, awake , and oriented well. PSYCHIATRIC SYSTEM: Patient's mood is euthymic. No hallucinations or delusions. LABORATORY DATA: White count of 3.9, H and H 11 and 35, platelet count 180, MCV 76 with 50% neutrophils. BUN 28, creatinine 2.4, and serum bicarb 25. Troponin is indeterminate, peaking up to 0.03. Liver enzymes within normal limits. Serum glucose 101. BNP 192. TSH 0.76. This was done at 9:30 a.m. Albumin 3.9. Urine drug screen is positive for cannabinoids. CT brain done shows no acute intracranial abnormalities. Chest x-ray done shows no acute cardiopulmonary abnormalities. EKG done shows sinus bradycardia at 52 beats per minute. There is T-inversion seen in leads II, III, aVF, V5, V6. Patient has signs of mild LVH. CLINICAL IMPRESSION AND PLAN: Patient will be admitted to telemetry for hypertensive emergency with headache and chest pain. Her blood pressure is improved after receiving hydralazine and nitroglycerin paste in the ER. We will continue her on Norvasc, home dose of hydralazine, Coreg. We will also continue her on full- dose aspirin and Lipitor. It is unclear if patient is compliant with her medications. Nephrology consultation with Dr. Peru will be obtained for acute kidney injury. The plan is to slowly bring the blood pressure down in view of her significant cardiac history. She was also counseled with regard to dietary and medication compliance. The patient also needs close followup with her primary manager legal, Dr. Roe. This was counseled again with the patient. Job ID: [id number] MTDD
[2019-05-06] MEDS: Atorvastatin Calcium 40 MG TAB PO SCH (22:08)
[2019-05-06 22:52] LABS: Creatinine, Urine 125.42 mg/dL (47-110)
--- NOTE | 2019-05-06 22:58 | ULT ---
US Renal Bilateral STANDARD: 05/06/2019 7:11 PM CLINICAL HISTORY: Chronic kidney disease. STUDY: Renal ultrasound COMPARISON: None. FINDINGS: Right kidney: Echogenicity: Increased. Masses/cysts: None. Hydronephrosis: None. Calcifications: None. Length: 9.9 cm Left kidney: Echogenicity: Increased. Masses/cysts: None. Hydronephrosis: None. Calcifications: None. Length: 9.7 cm There is a 1.0 cm nodule along the right aspect of the urinary bladder wall which is nonspecific. IMPRESSION: 1. Echogenic kidneys may be secondary to chronic medical renal disease. 2. Nonspecific bladder nodule.
--- NOTE | 2019-05-07 01:20 | CON ---
DATE OF CONSULTATION: CONSULTING PHYSICIAN: Jaz Olsen MD REQUESTING PHYSICIAN: Edgardo Valdes MD. REASON FOR CONSULTATION: Chronic kidney disease and hypertensive urgency. IMPRESSION: 1. Chronic kidney disease, stage 4. This is likely the patient's baseline. This is possibly in the context of hypertensive nephrosclerosis, cannot rule out other potential etiologies. 2. Hypertensive urgency, likely secondary to #1. 3. Anemia. PLAN: 1. Discontinue IV fluid. 2. Renal ultrasound to evaluate the integrity of the kidneys. 3. Urine protein and creatinine to evaluate for potential proteinuria and degree for. We will continue to adjust antihypertensive medications to optimize hemodynamics. HISTORY OF PRESENT ILLNESS: History is that of a 53-year-old female patient who presented here with chest pain and shortness of breath noted on presentation with the systolic blood pressure of 240 over diastolic of 154. The patient's hemodynamics seem to have improved. However, on clinical evaluation, the patient noted with the estimated GFR of 25 with a creatinine 2.4, felt the need for renal consultation. The patient denies any hematuria or frothy urine. The patient is a tobacco user. PAST MEDICAL HISTORY: Significant for hypertension, coronary artery disease, dyslipidemia. MEDICATIONS: Reviewed as documented on [employer]. ALLERGIES: NO KNOWN DRUG ALLERGIES. FAMILY HISTORY: Denies family history of kidney disease. SOCIAL HISTORY: The patient smokes cigarettes. No alcohol. No illicit drug use. REVIEW OF SYSTEMS: As documented in the body of the history. All other systems were reviewed and found not to be significantly related to present illness. PHYSICAL EXAMINATION: GENERAL: The patient was found not to be in any obvious distress. VITAL SIGNS: Noted with the following vital signs; afebrile, temperature 98.6, pulse 61, respiratory rate of 16, O2 saturation 100% with blood pressure 156/89 down from 240. HEENT: Unremarkable. CARDIOVASCULAR: First and second heart sounds were heard. RESPIRATORY: Clear to auscultation. DIGESTIVE SYSTEM: Benign abdomen. Positive bowel sounds. EXTREMITIES: No peripheral edema. SKIN: No new gross rash. LYMPHATICS: No peripheral lymphadenopathy. SUMMARY: A 53-year-old female patient with advanced chronic kidney disease stage 4, who presented here with hypertensive urgency, likely related to advanced kidney disease. Thank you for this consultation. We will follow with you. Job ID: [id number]
[2019-05-07] MEDS ORDERED: hydrALAZINE 20 MG/ML VIAL SLOW IVP PRN (04:06)
[2019-05-07] MEDS ORDERED: hydrALAZINE 20 MG/ML VIAL SLOW IVP SCH (04:15)
[2019-05-07 05:43] LABS: #Eosinphils 0.2 thou/uL (0.0-0.7); #Lymphocytes 1.9 thou/uL (1.20-3.40); #Monocytes 0.4 thou/uL (0.11-0.59); #Neutrophils 2.7 thou/uL (1.40-6.50); %Basophils 0.5 % (0.0-1.0); %Eosinophils 2.9 % (0.0-10.0); %Monocytes 7.8 % (0.0-10.0); %Neutrophils 51.8 % (42.0-75.0); Hemoglobin 10.3 g/dL (12.0-16.0); Mean Corpuscular Hemoglobin 24.9 pg (27.0-31.0); Mean Corpuscular Volume 75.4 fL (78.0-98.0); Platelet Count 164 thou/uL (130-400); RBC Distribution Width 14.7 % (11.5-14.5); Red Blood Cell (RBC) Count 4.12 mill/uL (4.20-5.40); White Blood Cell (WBC) Count 5.2 thou/uL (4.8-10.8)
[2019-05-07 06:20] LABS: Anion Gap 11 mmol/L (10-20); BUN (Urea Nitrogen) 29 mg/dL (9.8-20.1); Calc. Creatinine Clearance 28 mL/min (70-130); Carbon Dioxide 26 mmol/L (22-29); Cardiac Risk 2.9 (Less than 4.5); Chloride 108 mmol/L (98-107); Cholesterol 152 mg/dl (< 200 Desired); Estimated GFR-MDRD 26; Glucose 98 mg/dL (70-105); HDL Cholesterol 53 mg/dL (>60 Neg Risk); LDL Cholesterol, Calculated 89 mg/dL; Potassium 3.7 mmol/L (3.5-5.1); Sodium 141 mmol/L (136-145); Triglycerides 49 mg/dL (Less than 150)
[2019-05-07] MEDS: Aspirin 325 mg Enteric Coated Tablet PO SCH (08:36)
[2019-05-07] MEDS: Amlodipine 10 MG TAB PO SCH (08:36)
[2019-05-07] MEDS: Enoxaparin Sodium 30 MG/0.3 ML SYRINGE SC SCH (08:36)
[2019-05-07] MEDS: hydrALAZINE 25 MG TAB PO SCH ×3 (08:37→21:27)
[2019-05-07] MEDS: Carvedilol 25 MG TAB PO SCH ×2 (08:38→16:49)
[2019-05-07] MEDS ORDERED: hydrALAZINE 25 MG TAB PO SCH ×2 (09:30→09:45)
--- NOTE | 2019-05-07 19:00 | PRG ---
DATE OF SERVICE: 05/07/2019 SUBJECTIVE: The patient was seen and examined, seems to be doing much better. However, the patient refused carvedilol claiming that it dropped high blood pressure in the past way too low. As a result, the patient is not accepting this medication at this point. OBJECTIVE: VITAL SIGNS: The patient noted with the following vital signs; afebrile, temperature 98.9, pulse 69, respiratory rate of 18, O2 saturations of 98%, blood pressure 157/92. HEENT: Unremarkable. CARDIOVASCULAR SYSTEM: First and second heart sounds were heard. RESPIRATORY SYSTEM: Clear to auscultation. DIGESTIVE SYSTEM: Benign abdomen. EXTREMITIES: No peripheral edema. SKIN: No new gross rash. LYMPHATICS: No peripheral lymphadenopathy. LABORATORY DATA: Renal ultrasound showed echogenic kidneys consistent with advanced chronic kidney disease. IMPRESSION: 1. Hypertension, seems to be improving. 2. Chronic kidney disease stage 4. anemia likely anemia of chronic disease. PLAN: 1. Blood pressure control. 2. Outpatient Nephrology followup status post discharge strongly recommended. 3. Renally dose all medications for low GFR. 4. Further management to be dependent on the clinical course. Job ID: [id number]
[2019-05-07] MEDS: Atorvastatin Calcium 40 MG TAB PO SCH (21:27)
--- NOTE | 2019-05-07 21:48 | PDOC.HOSPP ---
- Subjective Subjective: Feels ok. No complaints. - Objective Vital Signs & Weight: Vital Signs (12 hours) Temp Pulse Resp BP BP Pulse Ox 05/07/19 21:27 71 05/07/19 19:41 98.8 F 71 16 138/83 98 05/07/19 15:45 72 157/92 H 05/07/19 15:28 98.9 F 69 18 157/92 H 98 05/07/19 11:11 99.2 F 72 16 143/88 H 99 05/07/19 10:01 73 170/90 H Weight Weight 142 lb I&O: 05/06/19 05/07/19 05/08/19 06:59 06:59 06:59 Intake Total 1690 960 Balance 1690 960 Result Diagrams: 05/07/19 05:32 05/07/19 05:32 Hospitalist ROS - Medication Medications: Active Medications Generic Name Dose Route Start Last Admin Trade Name Freq PRN Reason Stop Dose Admin Amlodipine Besylate 10 mg 05/07/19 09:00 05/07/19 08:36 Norvasc PO 10 mg DAILY BRENT Administration Aspirin 325 mg 05/07/19 09:00 05/07/19 08:36 Ecotrin PO 325 mg DAILY BRENT Administration Atorvastatin Calcium 80 mg 05/06/19 21:00 05/07/19 21:27 Lipitor PO 80 mg HS [facility] Administration Carvedilol 25 mg 05/06/19 17:00 05/07/19 16:49 Coreg PO Not Given BID-WM [facility] Enoxaparin Sodium 30 mg 05/07/19 09:00 05/07/19 08:36 Lovenox SC 30 mg 0900 [facility] Administration Hydralazine HCl 50 mg 05/07/19 15:00 05/07/19 21:27 Apresoline PO 50 mg TID BRENT Administration - Exam General Appearance: NAD, awake alert Heart: RRR, no murmur, no gallops, no rubs, normal peripheral pulses Respiratory: CTAB, no wheezes, no rales, no ronchi, normal chest expansion, no tachypnea, normal percussion Gastrointestinal: soft, non-tender, non-distended, normal bowel sounds, no palpable masses, no hepatomegaly, no splenomegaly, no bruit Extremities: no cyanosis, no clubbing, no edema Musculoskeletal: normal tone, normal strength, no muscle wasting Psychiatric: normal affect, normal behavior, A&O x 3 Hosp A/P (1) Acute kidney injury superimposed on chronic kidney disease Code(s): N17.9 - ACUTE KIDNEY FAILURE, UNSPECIFIED; N18.9 - CHRONIC KIDNEY DISEASE, UNSPECIFIED Status: Acute (2) Hypertensive emergency without congestive heart failure Code(s): I16.1 - HYPERTENSIVE EMERGENCY Status: Acute (3) HTN (hypertension) Code(s): I10 - ESSENTIAL (PRIMARY) HYPERTENSION Status: Chronic (4) Anemia in chronic kidney disease Code(s): N18.9 - CHRONIC KIDNEY DISEASE, UNSPECIFIED; D63.1 - ANEMIA IN CHRONIC KIDNEY DISEASE Status: Acute - Plan Feels ok. Titrating up on the anti-hypertensives. Nephrology following.
[2019-05-08] MEDS: Carvedilol 25 MG TAB PO SCH (07:51)
[2019-05-08] MEDS: Amlodipine 10 MG TAB PO SCH (07:59)
[2019-05-08] MEDS: hydrALAZINE 25 MG TAB PO SCH (08:00)
[2019-05-08] MEDS: Enoxaparin Sodium 30 MG/0.3 ML SYRINGE SC SCH (08:00)
[2019-05-08] MEDS: Aspirin 325 mg Enteric Coated Tablet PO SCH (08:00)
[2019-05-08 10:00] LABS: Anion Gap 14 mmol/L (10-20); BUN (Urea Nitrogen) 24 mg/dL (9.8-20.1); Calc. Creatinine Clearance 31 mL/min (70-130); Calcium 9.1 mg/dL (7.8-10.44); Carbon Dioxide 23 mmol/L (22-29); Chloride 105 mmol/L (98-107); Estimated GFR-MDRD 30; Glucose 95 mg/dL (70-105); Potassium 3.7 mmol/L (3.5-5.1); Sodium 138 mmol/L (136-145)
[2019-05-08 11:37] VITALS: TEMP 98.8
[2019-05-08 14:21] VITALS: BP 199/113
--- NOTE | 2019-05-08 15:28 | DIS ---
DATE OF ADMISSION: 05/06/2019 DATE OF DISCHARGE: 05/08/2019 DISCHARGE DIAGNOSES: 1. Hypertensive urgency. 2. Chronic hypertension. 3. History of coronary artery disease. 4. Coronary artery bypass history. 5. Dyslipidemia. 6. Chronic kidney disease, stage 4. HISTORY: This patient is a 53-year-old female, who presented to the Emergency Department on 05/06/2019. Please see the full H and P by Dr. Valdes dated that date. Briefly, this patient came to the ER stating that she felt bad in general, headache which was global, and some shortness of breath. The patient's blood pressure on arrival was 240/120. She was treated in the Emergency Department with IV medications, her pressure came down and her headache resolved. She had no chest pain or palpitations. Her exam was otherwise unremarkable. HOSPITAL COURSE: The patient was admitted to the hospital with a hypertensive emergency. She had CT of the brain, which was unremarkable. Chest x-ray showed nothing acute. EKG showed sinus etienne at 52 beats per minute. Some T-wave inversion in several leads with mild LVH. In the hospital course, the patient was seen in consultation by Dr. Sebastian. Given her chronic kidney disease, it appears as though she was at her baseline, it was like there is underlying source of her hypertensive issues. The patient reported that she had not been taking her carvedilol and refused to take her carvedilol because it caused bradycardia, which resulted in her being admitted to [facility] previously. She did remain relatively bradycardic even without the carvedilol throughout her stay with her heart rate rarely getting above the low 60s. She remained completely asymptomatic. She did have her oral home medications to include amlodipine continued, her hydralazine was increased from 25 t.i.d. to 50 t.i.d. She had a renal ultrasound, which was notable for echogenic kidney secondary to chronic medical renal disease and nonspecific bladder nodule. She ultimately felt as though she was ready for discharge. Said she was going home and did not want to wait. Stated the blood pressure readings that we were obtaining here in the hospital were similar to those that she was getting at home and she felt fine and therefore, was fairly insistent upon leaving. I told her I would double check with Dr. Sebastian to ensure he did not have any objections and at that time, her blood pressure was 142/87; however, the one immediately prior was 173/103. The patient subsequently had taken off her monitor and was working on pulling out her IV. When the nurse convinced her to wait long enough to talk to me, I did ultimately hear back from Dr. Sebastian was okay with her going home and given her current blood pressure, I was as well. However, subsequent to that, a repeat check of her blood pressure was 199/113. The patient stated; however, she did not want to stay and did not want to wait any longer to consider getting any p.r.n. medications and continued to leave. PHYSICAL EXAMINATION: Otherwise, her physical exam was unremarkable. HEART: Regular rate and rhythm. LUNGS: Clear. ABDOMEN: Benign. DISPOSITION: The patient is discharged to home in fair condition. ACTIVITY: As tolerated. DIET: She is on a heart healthy, renal diet. MEDICATIONS: She will be on; 1. Amlodipine 10 mg p.o. daily. 2. Hydralazine 50 mg p.o. t.i.d. She will continue with her home medications including; 1. Atorvastatin. 2. Isosorbide. 3. She has stopped her carvedilol as she adamantly refuses to take that. 4. She has also stopped her lower dose hydralazine. FOLLOWUP: She is to follow up with Dr. Sebastian in 3 to 4 weeks. She can follow up with Dr. Nelly Melgar, on 05/14/2019, and she can return to the hospital at any time she feels the need to do so. TIME SPENT: Total time in discharge activities was 38 minutes. Job ID: [id number]
== END 2019-05-08 13:40 | disposition home or self-care (01) | DRG 305 ==
LOC: ERS 09:11 → ERHOLD 11:46 → 2NO 15:40
PROVIDERS: ADMIT Internal Medicine; ATTEND Internal Medicine
DX: I16.0 Hypertensive urgency (principal); N18.4 Chronic kidney disease, stage 4 (severe); N17.9 Acute kidney failure, unspecified; E78.5 Hyperlipidemia, unspecified; E78.00 Pure hypercholesterolemia, unspecified; D63.1 Anemia in chronic kidney disease; I12.9 Hypertensive chronic kidney disease with stage 1 through stage 4 chronic kidney disease, or unspecified chronic kidney disease; I25.10 Atherosclerotic heart disease of native coronary artery without angina pectoris; F17.210 Nicotine dependence, cigarettes, uncomplicated; Z95.1 Presence of aortocoronary bypass graft; I25.2 Old myocardial infarction; Z87.891 Personal history of nicotine dependence; Z88.6 Allergy status to analgesic agent; Z91.018 Allergy to other foods; Z79.82 Long term (current) use of aspirin; Z79.899 Other long term (current) drug therapy
CPT/HCPCS: 36415; 70450; 71045; 76770; 80048; 80053; 80061; 80306; 82570; 83880; 84156; 84443; 84484; 85025; 85610; 93005; 94760; 96365; 96375; J0360; J1200; J1650; J2765

== ENCOUNTER 2020-10-31 13:18 | Emergency (ER) | payer MEDICAID ==
[2020-10-31] MEDS ORDERED: Dexamethasone 4 mg/ml Vial ONE (14:01)
[2020-10-31] MEDS ORDERED: Ketorolac Tromethamine 30 MG/ML VIAL ONE (14:01)
[2020-10-31] MEDS ORDERED: Fentanyl 100 MCG/2 ML VIAL ONE (14:01)
[2020-10-31] MEDS ORDERED: hydrALAZINE 20 MG/ML VIAL ONE (14:04)
[2020-10-31 14:22] LABS: #Eosinphils 0.1 thou/uL (0.0-0.7); #Lymphocytes 1.6 thou/uL (1.20-3.40); #Monocytes 0.5 thou/uL (0.11-0.59); #Neutrophils 3.9 thou/uL (1.40-6.50); %Basophils 0.3 % (0.0-1.0); %Eosinophils 1.7 % (0.0-10.0); %Lymphocytes 26.1 % (21.0-51.0); %Monocytes 7.8 % (0.0-10.0); %Neutrophils 64.2 % (42.0-75.0); Mean Corpuscular HGB CONC 31.6 g/dL (32.0-36.0); Mean Corpuscular Hemoglobin 23.7 pg (27.0-31.0); Mean Corpuscular Volume 75.1 fL (78.0-98.0); Mean Platelet Volume 9.9 fL (7.4-10.4); Platelet Count 252 thou/uL (130-400); RBC Distribution Width 14.6 % (11.5-14.5); Red Blood Cell (RBC) Count 4.65 mill/uL (4.20-5.40); White Blood Cell (WBC) Count 6.1 thou/uL (4.8-10.8)
[2020-10-31 14:43] LABS: ALT (SGPT) 7 U/L (8-55); AST (SGOT) 14 U/L (5-34); Albumin 4.3 g/dL (3.5-5.0); Alkaline Phosphatase 68 U/L (40-110); Anion Gap 16 mmol/L (10-20); BUN (Urea Nitrogen) 35 mg/dL (9.8-20.1); Bilirubin, Total 0.6 mg/dL (0.2-1.2); CK (CPK) 151 U/L (29-168); Calc. Creatinine Clearance 0 mL/min (70-130); Calcium 9.8 mg/dL (7.8-10.44); Carbon Dioxide 22 mmol/L (22-29); Chloride 107 mmol/L (98-107); Globulin 4.3 g/dL (2.4-3.5); Glucose 94 mg/dL (70-105); Lipase 56 U/L (8-78); Potassium 3.5 mmol/L (3.5-5.1); Protein, Total 8.6 g/dL (6.0-8.3); Sodium 141 mmol/L (136-145); Uric Acid 10.3 mg/dL (2.6-6.0)
[2020-10-31] MEDS ORDERED: Lidocaine 2% PF 5 ML VIAL ONE (14:49)
[2020-10-31 15:04] LABS: CKMB 1.3 ng/mL (0-6.6)
== END 2020-10-31 16:23 | disposition home or self-care (01) ==
LOC: ERS 13:18
DX: M10.9 Gout, unspecified (principal); I10 Essential (primary) hypertension; R74.8 Abnormal levels of other serum enzymes; I25.2 Old myocardial infarction; E78.5 Hyperlipidemia, unspecified; Z87.891 Personal history of nicotine dependence; Z79.899 Other long term (current) drug therapy; Z79.82 Long term (current) use of aspirin
CPT/HCPCS: 20610; 36415; 80053; 82550; 82553; 83690; 84484; 84550; 85025; 85652; 86140; 93005; 96374; 96375; J0360; J1100; J1885; J2001; J3010

== ENCOUNTER 2020-12-28 01:20 | Observation (INO) | payer MEDICAID ==
[2020-12-28] MEDS ORDERED: Metoclopramide HCl 10 MG/2 ML VIAL ONE (02:17)
[2020-12-28] MEDS ORDERED: diphenhydrAMINE 50 MG/ML VIAL ONE (02:17)
[2020-12-28 02:56] LABS: #Eosinphils 0.1 thou/uL (0.0-0.7); #Monocytes 0.4 thou/uL (0.11-0.59); #Neutrophils 4.7 thou/uL (1.40-6.50); %Basophils 0.3 % (0.0-1.0); %Eosinophils 1.1 % (0.0-10.0); %Lymphocytes 27.4 % (21.0-51.0); %Monocytes 6.1 % (0.0-10.0); %Neutrophils 65.1 % (42.0-75.0); Hemoglobin 10.1 g/dL (12.0-16.0); Mean Corpuscular HGB CONC 32.6 g/dL (32.0-36.0); Mean Corpuscular Hemoglobin 24.5 pg (27.0-31.0); Mean Corpuscular Volume 75.2 fL (78.0-98.0); Platelet Count 205 thou/uL (130-400); RBC Distribution Width 15.1 % (11.5-14.5); White Blood Cell (WBC) Count 7.1 thou/uL (4.8-10.8)
[2020-12-28 03:41] LABS: ALT (SGPT) 10 U/L (8-55); AST (SGOT) 22 U/L (5-34); Albumin 4.3 g/dL (3.5-5.0); Alkaline Phosphatase 69 U/L (40-110); Anion Gap 24 mmol/L (10-20); BUN (Urea Nitrogen) 44 mg/dL (9.8-20.1); Bilirubin, Total 0.3 mg/dL (0.2-1.2); CKMB 3.7 ng/mL (0-6.6); Calc. Creatinine Clearance 0 mL/min (70-130); Calcium 9.5 mg/dL (7.8-10.44); Carbon Dioxide 13 mmol/L (22-29); Chloride 106 mmol/L (98-107); Globulin 3.7 g/dL (2.4-3.5); Glucose 117 mg/dL (70-105); Potassium 4.1 mmol/L (3.5-5.1); Sodium 139 mmol/L (136-145)
[2020-12-28] MEDS ORDERED: Ondansetron ODT 4 MG TAB SL PRN (06:15)
[2020-12-28] MEDS ORDERED: Ondansetron PF 4 MG/2 ML Vial IVP PRN (06:15)
[2020-12-28] MEDS ORDERED: Acetaminophen 325 MG TAB PO PRN (06:15)
[2020-12-28 06:32] VITALS: BMI 28.4
[2020-12-28 07:03] LABS: Troponin I 0.092 ng/mL (< 0.028)
[2020-12-28] MEDS ORDERED: Nitroglycerin 0.4 MG TAB (25 Tab Bottle) SL PRN (09:49)
[2020-12-28 09:59] LABS: Troponin I 0.105 ng/mL (< 0.028)
[2020-12-28] MEDS: hydrALAZINE 20 MG/ML VIAL SLOW IVP PRN (12:01)
[2020-12-28 12:26] LABS: Iron 45 ug/dL (50-170); Iron Binding Capacity, Total 299 mcg/dL (265-497)
[2020-12-28 13:06] LABS: Ferritin 71.18 ng/mL (10-291); Thyroid Stimulating Hormone 0.5601 uIU/mL (0.35-4.94)
[2020-12-28 13:25] LABS: SARS-CoV-2 PCR by NAA Not Detected (NotDetected)
[2020-12-28] MEDS: hydrALAZINE 25 MG TAB PO SCH ×2 (14:17→21:34)
[2020-12-28] MEDS ORDERED: Heparin 5,000 UNITS/ML VIAL SC SCH (15:00)
[2020-12-28] MEDS: Carvedilol 25 MG TAB PO SCH (17:39)
[2020-12-28] MEDS ORDERED: Atorvastatin Calcium 40 MG TAB PO SCH (21:00)
[2020-12-28] MEDS ORDERED: Metoprolol Tartrate 25 MG TAB PO SCH (21:00)
[2020-12-28] MEDS: Sodium Bicarbonate Tab 325 MG TAB PO SCH (21:01)
[2020-12-29] MEDS: hydrALAZINE 20 MG/ML VIAL SLOW IVP PRN (04:42)
[2020-12-29 05:39] LABS: Albumin 3.6 g/dL (3.5-5.0); Anion Gap 16 mmol/L (10-20); BUN (Urea Nitrogen) 46 mg/dL (9.8-20.1); BUN/Creatinine Ratio 13.03; Calc. Creatinine Clearance 22 mL/min (70-130); Carbon Dioxide 19 mmol/L (22-29); Cardiac Risk 3.1 (Less than 4.5); Chloride 105 mmol/L (98-107); Cholesterol 183 mg/dl (< 200 Desired); Glucose 95 mg/dL (70-105); HDL Cholesterol 60 mg/dL (>60 Neg Risk); LDL Cholesterol, Calculated 107 mg/dL; Phosphorus 4.5 mg/dL (2.3-4.7); Potassium 3.6 mmol/L (3.5-5.1); Sodium 136 mmol/L (136-145); Triglycerides 78 mg/dL (Less than 150)
[2020-12-29] MEDS ORDERED: Aspirin Chewable 81 MG TAB PO SCH (09:00)
[2020-12-29] MEDS ORDERED: Enoxaparin Sodium 30 MG/0.3 ML SYRINGE SC SCH (09:00)
[2020-12-29] MEDS: Carvedilol 25 MG TAB PO SCH (09:22)
[2020-12-29] MEDS: hydrALAZINE 25 MG TAB PO SCH (09:23)
[2020-12-29] MEDS: Sodium Bicarbonate Tab 325 MG TAB PO SCH (09:25)
[2020-12-29 11:53] VITALS: BP 139/82; TEMP 98.3
== END 2020-12-29 14:35 | disposition home or self-care (01) ==
LOC: ERS 01:20 → 2SW 04:52
PROVIDERS: ADMIT Internal Medicine; ATTEND Internal Medicine
DX: I16.0 Hypertensive urgency (principal); R77.8 Other specified abnormalities of plasma proteins; N17.9 Acute kidney failure, unspecified; I12.9 Hypertensive chronic kidney disease with stage 1 through stage 4 chronic kidney disease, or unspecified chronic kidney disease; N18.4 Chronic kidney disease, stage 4 (severe); D63.1 Anemia in chronic kidney disease; I25.10 Atherosclerotic heart disease of native coronary artery without angina pectoris; E78.00 Pure hypercholesterolemia, unspecified; E78.5 Hyperlipidemia, unspecified; F17.200 Nicotine dependence, unspecified, uncomplicated; E87.2 Acidosis; Z20.822 Contact with and (suspected) exposure to COVID-19; Z95.1 Presence of aortocoronary bypass graft; Z91.018 Allergy to other foods
CPT/HCPCS: 36415; 70450; 71045; 76770; 80053; 80061; 80069; 82553; 82607; 82728; 82746; 83540; 83550; 83880; 83970; 84443; 84484; 85025; 93005; 96365; 96366; 96372; 96375; 96376; G0378; J0360; J1200; J1644; J1650; J2765; U0003; U0005

== ENCOUNTER 2022-03-02 19:49 | Inpatient (IN) | payer MEDICARE, MEDICAID ==
[2022-03-02 21:35] VITALS: BMI 24.7
[2022-03-02 22:29] LABS: SARS-CoV-2 NAA Rapid Test DETECTED (NotDetected)
[2022-03-02] MEDS ORDERED: Acetaminophen 650 MG Suppository PR PRN (22:42)
[2022-03-02] MEDS ORDERED: Ondansetron ODT 4 MG TAB PO PRN (22:42)
[2022-03-02] MEDS ORDERED: Ondansetron PF 4 MG/2 ML Vial IVP PRN (22:42)
[2022-03-03] MEDS: Acetaminophen 325 MG TAB PO PRN (00:45)
[2022-03-03] MEDS: hydrALAZINE 20 MG/ML VIAL SLOW IVP PRN ×3 (00:59→23:50)
[2022-03-03 03:15] LABS: #Monocytes 0.8 thou/uL (0.11-0.59); #Neutrophils 3.9 thou/uL (1.40-6.50); %Basophils 0.3 % (0.0-1.0); %Eosinophils 0.2 % (0.0-10.0); %Monocytes 13.1 % (0.0-10.0); %Neutrophils 68.4 % (42.0-75.0); Hemoglobin 8.5 g/dL (12.0-16.0); Large Platelets SLIGHT; MDiff Complete? YES; Mean Corpuscular Hemoglobin 25.2 pg (27.0-31.0); Mean Corpuscular Volume 74.2 fL (78.0-98.0); Mean Platelet Volume 11.2 fL (7.4-10.4); Microcytosis MODERATE=15-30 cells (100X) (0-5/hpf); Platelet Count 162 thou/uL (130-400); Platelet Morphology Comment Appears Adequate; Polychromasia SLIGHT = 2-3 cells (100X) (0-2/hpf); RBC Distribution Width 14.9 % (11.5-14.5); Red Blood Cell (RBC) Count 3.38 mill/uL (4.20-5.40); Troponin I 0.149 ng/mL (< 0.028); White Blood Cell (WBC) Count 5.7 thou/uL (4.8-10.8)
[2022-03-03 03:20] LABS: Iron 18 ug/dL (50-170); Iron Binding Capacity, Total 251 mcg/dL (265-497)
[2022-03-03 03:27] LABS: Anion Gap 19 mmol/L (10-20); BUN (Urea Nitrogen) 48 mg/dL (9.8-20.1); Calc. Creatinine Clearance 14 mL/min (70-130); Calcium 9.4 mg/dL (7.8-10.44); Carbon Dioxide 16 mmol/L (22-29); Chloride 104 mmol/L (98-107); Estimated GFR 10; Glucose 105 mg/dL (70-105); Iron 14 ug/dL (50-170); Iron Binding Capacity, Total 253 mcg/dL (265-497); Potassium 3.3 mmol/L (3.5-5.1); Sodium 136 mmol/L (136-145)
[2022-03-03 07:16] LABS: Troponin I 0.136 ng/mL (< 0.028)
[2022-03-03] MEDS: Ascorbic Acid 500 mg Chewable Tablet PO SCH (09:19)
[2022-03-03] MEDS: Zinc Sulfate 220 MG CAP PO SCH (09:19)
[2022-03-03] MEDS: Cholecalciferol (Vitamin D3) 400 UNITS TAB PO SCH (09:19)
[2022-03-03] MEDS: Enoxaparin Sodium 30 MG/0.3 ML SYRINGE SC SCH (09:19)
[2022-03-03] MEDS: Labetalol HCl 100 MG/20 ML VIAL SLOW IVP PRN (12:53)
[2022-03-03] MEDS ORDERED: hydrALAZINE 20 MG/ML VIAL SLOW IVP SCH (14:30)
[2022-03-03] MEDS ORDERED: Metoprolol Tartrate 5 MG/5 ML VIAL IVP SCH (14:30)
[2022-03-03] MEDS: hydrALAZINE 25 MG TAB PO SCH (20:37)
[2022-03-04] MEDS: Labetalol HCl 100 MG/20 ML VIAL SLOW IVP PRN ×2 (03:44→16:18)
[2022-03-04] MEDS: Acetaminophen 325 MG TAB PO PRN (03:44)
[2022-03-04 04:59] LABS: #Lymphocytes 1.5 thou/uL (1.20-3.40); #Monocytes 0.6 thou/uL (0.11-0.59); #Neutrophils 2.5 thou/uL (1.40-6.50); %Eosinophils 0.1 % (0.0-10.0); %Lymphocytes 32.4 % (21.0-51.0); %Monocytes 13.3 % (0.0-10.0); %Neutrophils 54.2 % (42.0-75.0); Hemoglobin 9.1 g/dL (12.0-16.0); Mean Corpuscular HGB CONC 32.2 g/dL (32.0-36.0); Mean Corpuscular Hemoglobin 24.1 pg (27.0-31.0); Mean Platelet Volume 11.5 fL (7.4-10.4); Platelet Count 156 thou/uL (130-400); RBC Distribution Width 15.1 % (11.5-14.5); Red Blood Cell (RBC) Count 3.75 mill/uL (4.20-5.40); White Blood Cell (WBC) Count 4.6 thou/uL (4.8-10.8)
[2022-03-04 05:23] LABS: Anion Gap 18 mmol/L (10-20); BUN (Urea Nitrogen) 46 mg/dL (9.8-20.1); Calc. Creatinine Clearance 15 mL/min (70-130); Calcium 8.9 mg/dL (7.8-10.44); Carbon Dioxide 16 mmol/L (22-29); Chloride 101 mmol/L (98-107); Estimated GFR 11; Glucose 94 mg/dL (70-105); Potassium 3.2 mmol/L (3.5-5.1); Sodium 132 mmol/L (136-145)
[2022-03-04] MEDS: Enoxaparin Sodium 30 MG/0.3 ML SYRINGE SC SCH (08:53)
[2022-03-04] MEDS: hydrALAZINE 25 MG TAB PO SCH ×3 (08:54→21:06)
[2022-03-04] MEDS: Ascorbic Acid 500 mg Chewable Tablet PO SCH (08:54)
[2022-03-04] MEDS: Zinc Sulfate 220 MG CAP PO SCH (08:54)
[2022-03-04] MEDS: Cholecalciferol (Vitamin D3) 400 UNITS TAB PO SCH (08:55)
[2022-03-04] MEDS ORDERED: Potassium Chloride 20 MEQ TAB PO SCH (13:00)
[2022-03-04] MEDS: hydrALAZINE 20 MG/ML VIAL SLOW IVP PRN (21:06)
[2022-03-05 05:23] LABS: #Lymphocytes 1.6 thou/uL (1.20-3.40); #Monocytes 0.5 thou/uL (0.11-0.59); #Neutrophils 1.8 thou/uL (1.40-6.50); %Basophils 0.3 % (0.0-1.0); %Lymphocytes 41.9 % (21.0-51.0); %Monocytes 11.5 % (0.0-10.0); %Neutrophils 46.3 % (42.0-75.0); Hemoglobin 8.9 g/dL (12.0-16.0); Mean Corpuscular HGB CONC 32.3 g/dL (32.0-36.0); Mean Corpuscular Hemoglobin 24.2 pg (27.0-31.0); Mean Corpuscular Volume 74.8 fL (78.0-98.0); Mean Platelet Volume 11.5 fL (7.4-10.4); Platelet Count 157 thou/uL (130-400); RBC Distribution Width 15.1 % (11.5-14.5); Red Blood Cell (RBC) Count 3.68 mill/uL (4.20-5.40); White Blood Cell (WBC) Count 3.9 thou/uL (4.8-10.8)
[2022-03-05 05:49] LABS: Anion Gap 17 mmol/L (10-20); BUN (Urea Nitrogen) 55 mg/dL (9.8-20.1); Calc. Creatinine Clearance 15 mL/min (70-130); Calcium 8.5 mg/dL (7.8-10.44); Carbon Dioxide 17 mmol/L (22-29); Chloride 102 mmol/L (98-107); Estimated GFR 11; Glucose 93 mg/dL (70-105); Potassium 3.4 mmol/L (3.5-5.1); Sodium 133 mmol/L (136-145)
[2022-03-05] MEDS: Cholecalciferol (Vitamin D3) 400 UNITS TAB PO SCH (08:50)
[2022-03-05] MEDS: Ascorbic Acid 500 mg Chewable Tablet PO SCH (08:50)
[2022-03-05] MEDS: hydrALAZINE 25 MG TAB PO SCH ×2 (08:51→14:03)
[2022-03-05] MEDS: Enoxaparin Sodium 30 MG/0.3 ML SYRINGE SC SCH (08:52)
[2022-03-05 12:47] VITALS: TEMP 98.1
[2022-03-05 15:37] VITALS: BP 177/94
== END 2022-03-05 17:30 | disposition left against medical advice (07) | DRG 280 ==
LOC: 2SW 19:49 → OBSVTOIN 03-03 10:56
PROVIDERS: ADMIT Student in an Organized Health Care Education/Training Program; ATTEND Internal Medicine
PROC: 8E0ZXY6 Isolation (ICD-10-PCS; principal; 2022-03-03)
DX: I16.0 Hypertensive urgency (principal); I21.A1 Myocardial infarction type 2; U07.1 COVID-19; N17.9 Acute kidney failure, unspecified; I12.9 Hypertensive chronic kidney disease with stage 1 through stage 4 chronic kidney disease, or unspecified chronic kidney disease; N18.9 Chronic kidney disease, unspecified; E78.5 Hyperlipidemia, unspecified; F17.210 Nicotine dependence, cigarettes, uncomplicated; D63.1 Anemia in chronic kidney disease; R74.8 Abnormal levels of other serum enzymes; R55 Syncope and collapse; Z95.1 Presence of aortocoronary bypass graft; Z91.018 Allergy to other foods; Z79.82 Long term (current) use of aspirin; Z79.899 Other long term (current) drug therapy; I25.2 Old myocardial infarction; Z95.5 Presence of coronary angioplasty implant and graft; S09.90XA Unspecified injury of head, initial encounter; W19.XXXA Unspecified fall, initial encounter
CPT/HCPCS: 36415; 70450; 71045; 80048; 80053; 81003; 81015; 82553; 82728; 83540; 83550; 84484; 85025; 85379; 93005; 93306; 93880; 96374; 96375; G0378; J0360; J1650; U0002

== ENCOUNTER 2022-08-24 08:42 | Emergency (ER) | payer MEDICAID ==
[2022-08-24 12:30] LABS: #Lymphocytes 1.1 thou/uL (1.20-3.40); #Monocytes 0.5 thou/uL (0.11-0.59); %Basophils 0.2 % (0.0-1.0); %Eosinophils 0.1 % (0.0-10.0); %Lymphocytes 14.7 % (21.0-51.0); Hemoglobin 9.6 g/dL (12.0-16.0); Mean Corpuscular HGB CONC 32.2 g/dL (32.0-36.0); Mean Corpuscular Hemoglobin 24.2 pg (27.0-31.0); Mean Corpuscular Volume 75.1 fl (78.0-98.0); Mean Platelet Volume 10.5 fL (7.4-10.4); Platelet Count 224 10x3/uL (130-400); RBC Distribution Width 15.5 % (11.5-14.5); Red Blood Cell (RBC) Count 3.96 mill/uL (4.20-5.40); White Blood Cell (WBC) Count 7.7 10x3/uL (4.8-10.8)
[2022-08-24] MEDS ORDERED: Dexameth. Sod Phosp. 10 MG/ML (CHEMO USE ONLY) ONE (12:46)
[2022-08-24] MEDS ORDERED: Morphine 4 MG/ML VIAL ONE (12:46)
[2022-08-24] MEDS ORDERED: hydrALAZINE 20 MG/ML VIAL ONE (12:47)
[2022-08-24] MEDS ORDERED: LORazepam 2 MG/ML SYR.(CARPUJECT) ONE (12:48)
[2022-08-24 13:23] LABS: CKMB 1.8 ng/mL (0-6.6)
[2022-08-24 13:30] LABS: ALT (SGPT) 7 U/L (8-55); AST (SGOT) 21 U/L (5-34); Albumin 4.4 g/dL (3.5-5.0); Alkaline Phosphatase 79 U/L (40-110); Anion Gap 21 mmol/L (10-20); BUN (Urea Nitrogen) 36 mg/dL (9.8-20.1); Bilirubin, Total 0.5 mg/dL (0.2-1.2); Calc. Creatinine Clearance 0 mL/min (70-130); Calcium 8.6 mg/dL (7.8-10.44); Carbon Dioxide 13 mmol/L (22-29); Chloride 110 mmol/L (98-107); Estimated GFR 11; Globulin 3.9 g/dL (2.4-3.5); Glucose 83 mg/dL (70-105); Potassium 5.4 mmol/L (3.5-5.1); Protein, Total 8.3 g/dL (6.0-8.3); Sodium 139 mmol/L (136-145)
== END 2022-08-24 14:20 | disposition home or self-care (01) ==
LOC: ERS 08:42
DX: M25.522 Pain in left elbow (principal); I12.9 Hypertensive chronic kidney disease with stage 1 through stage 4 chronic kidney disease, or unspecified chronic kidney disease; N18.9 Chronic kidney disease, unspecified; M10.9 Gout, unspecified; E78.5 Hyperlipidemia, unspecified; Z87.891 Personal history of nicotine dependence
CPT/HCPCS: 36415; 71045; 80053; 82553; 84484; 85025; 93005; 96374; 96375; J0360; J1100; J2060; J2270

== ENCOUNTER 2023-08-14 10:39 | Inpatient (IN) | payer MEDICARE, MEDICAID ==
[2023-08-14] MEDS ORDERED: niCARdipine 25 MG/10 ML SDV ONE (11:25)
[2023-08-14] MEDS ORDERED: niCARdipine 25 MG in Sodium Chloride 0.9% 250 ML 250 ML IVPB SCH (11:45)
[2023-08-14 12:21] LABS: #Monocytes 0.3 thou/uL (0.11-0.59); #Neutrophils 4.4 thou/uL (1.40-6.50); %Basophils 0.2 % (0.0-1.0); %Monocytes 5.2 % (0.0-10.0); %Neutrophils 79.2 % (42.0-75.0); Hematocrit 22.9 % (36.0-47.0); Hemoglobin 6.9 g/dL (12.0-16.0); Mean Corpuscular HGB CONC 30.1 g/dL (32.0-36.0); Mean Corpuscular Hemoglobin 23.3 pg (27.0-31.0); Mean Corpuscular Volume 77.4 fl (78.0-98.0); Mean Platelet Volume 11.1 fL (7.4-10.4); Platelet Count 215 10x3/uL (130-400); RBC Distribution Width 17.7 % (11.5-14.5); Red Blood Cell (RBC) Count 2.96 mill/uL (4.20-5.40); White Blood Cell (WBC) Count 5.5 10x3/uL (4.8-10.8)
[2023-08-14 12:43] LABS: ALT (SGPT) 41 U/L (8-55); AST (SGOT) 54 U/L (5-34); Albumin 3.9 g/dL (3.5-5.0); Alkaline Phosphatase 91 U/L (40-110); Anion Gap 19 mmol/L (10-20); BUN (Urea Nitrogen) 71 mg/dL (9.8-20.1); Bilirubin, Total 0.4 mg/dL (0.2-1.2); Calc. Creatinine Clearance 0 mL/min (70-130); Calcium 7.4 mg/dL (7.8-10.44); Carbon Dioxide 10 mmol/L (22-29); Chloride 112 mmol/L (98-107); Estimated GFR 7; Globulin 3.5 g/dL (2.4-3.5); Glucose 102 mg/dL (70-105); Potassium 4.2 mmol/L (3.5-5.1); Protein, Total 7.4 g/dL (6.0-8.3); Sodium 137 mmol/L (136-145)
[2023-08-14 12:54] LABS: Critical Call Chem Troponin I NUR.LM20 @1253; Troponin I 0.285 ng/mL (< 0.028)
[2023-08-14 16:20] VITALS: BMI 23.3
[2023-08-14 16:48] LABS: #Monocytes 0.3 thou/uL (0.11-0.59); %Basophils 0.2 % (0.0-1.0); %Lymphocytes 22.1 % (21.0-51.0); %Monocytes 5.7 % (0.0-10.0); %Neutrophils 71.8 % (42.0-75.0); Hematocrit 22.7 % (36.0-47.0); Hemoglobin 7.1 g/dL (12.0-16.0); Mean Corpuscular HGB CONC 31.3 g/dL (32.0-36.0); Mean Corpuscular Volume 76.7 fl (78.0-98.0); Platelet Count 212 10x3/uL (130-400); RBC Distribution Width 17.4 % (11.5-14.5); Red Blood Cell (RBC) Count 2.96 mill/uL (4.20-5.40); White Blood Cell (WBC) Count 5.6 10x3/uL (4.8-10.8)
[2023-08-14 16:53] LABS: Bacteria/HPF None Seen HPF (None Seen); Bilirubin Negative (Negative); Blood, Urine Trace (Negative); Clarity Clear (Clear); Glucose, Urine (Dipstick) 70 mg/dL (Negative); Ketone, Urine Negative (Negative); Leukocyte Negative Leu/uL (Negative); Nitrite Negative (Negative); Protein, Urine (Dipstick) 70 mg/dL (Neg-Trace); RBC/HPF 0-3 HPF (0-3); Specific Gravity, Urine 1.009 (1.002-1.036); Squamous Epithelial 0-3 HPF (0-3); Urobilinogen Normal mg/dL (Less than 2); WBC/HPF 0-3 HPF (0-3); pH, Urine 6.5 (5.0-9.0)
[2023-08-14] MEDS: Heparin 5,000 UNITS/ML VIAL SC SCH (16:57)
[2023-08-14] MEDS: niCARdipine 25 MG in Sodium Chloride 0.9% 250 ML 250 ML IVPB SCH (17:14)
[2023-08-14 17:16] LABS: Amphetamine Not Detected (NotDetected); Barbiturates Screen Not Detected (NotDetected); Benzodiazepine Screen Not Detected (NotDetected); Cocaine Metabolite Screen Not Detected (NotDetected); Methadone Not Detected (NotDetected); Methamphetamine Not Detected (NotDetected); Opiate Screen Not Detected (NotDetected); Oxycodone Screen Not Detected (NotDetected); Phencyclidine (PCP) Not Detected (NotDetected); THC/Cannabinoid Screen Detected (NotDetected); Tricyclic Screen Not Detected (NotDetected)
[2023-08-14 17:38] LABS: Ferritin 133.23 ng/mL (10-291)
[2023-08-14 17:39] LABS: Iron 29 ug/dL (50-170); Iron Binding Capacity, Total 273 mcg/dL (265-497)
[2023-08-14 17:43] LABS: Troponin I 0.827 ng/mL (< 0.028)
[2023-08-14] MEDS ORDERED: Sodium Bicarbonate Tab 325 MG TAB PO SCH (21:00)
[2023-08-14] MEDS: Sodium Bicarbonate Tab 325 MG TAB PO SCH (21:21)
[2023-08-14] MEDS: Atorvastatin Calcium 40 MG TAB PO SCH (21:21)
[2023-08-15 05:45] LABS: Albumin 3.4 g/dL (3.5-5.0); Anion Gap 18 mmol/L (10-20); BUN (Urea Nitrogen) 72 mg/dL (9.8-20.1); BUN/Creatinine Ratio 11.47; Calc. Creatinine Clearance 10 mL/min (70-130); Calcium 7.3 mg/dL (7.8-10.44); Carbon Dioxide 13 mmol/L (22-29); Chloride 113 mmol/L (98-107); Estimated GFR 7; Glucose 87 mg/dL (70-105); Phosphorus 6.1 mg/dL (2.3-4.7); Potassium 3.5 mmol/L (3.5-5.1); Sodium 140 mmol/L (136-145)
[2023-08-15 08:00] LABS: #Monocytes 0.3 thou/uL (0.11-0.59); #Neutrophils 2.6 thou/uL (1.40-6.50); %Basophils 0.2 % (0.0-1.0); %Eosinophils 0.2 % (0.0-10.0); %Monocytes 8.1 % (0.0-10.0); %Neutrophils 64.3 % (42.0-75.0); Hematocrit 18.6 % (36.0-47.0); Hemoglobin 5.8 g/dL (12.0-16.0); Mean Corpuscular HGB CONC 31.2 g/dL (32.0-36.0); Mean Corpuscular Hemoglobin 23.5 pg (27.0-31.0); Mean Corpuscular Volume 75.3 fl (78.0-98.0); Mean Platelet Volume 11.7 fL (7.4-10.4); Platelet Count 195 10x3/uL (130-400); RBC Distribution Width 17.3 % (11.5-14.5); Red Blood Cell (RBC) Count 2.47 mill/uL (4.20-5.40); White Blood Cell (WBC) Count 4.1 10x3/uL (4.8-10.8)
[2023-08-15 08:05] LABS: Critical Call w/ Read Back NUR.PLF @ 0804
[2023-08-15] MEDS: Aspirin 81 mg Enteric Coated Tablet PO SCH (08:50)
[2023-08-15] MEDS: hydrALAZINE 25 MG TAB PO SCH ×2 (08:50→14:51)
[2023-08-15] MEDS: Isosorbide Dinitrate 20 MG TAB PO SCH (08:51)
[2023-08-15 09:50] LABS: Hematocrit 18.1 % (36.0-47.0); Hemoglobin 5.7 g/dL (12.0-16.0); Platelet Count 173 10x3/uL (130-400)
[2023-08-15 09:58] LABS: Critical Call w/ Read Back NUR.PLF @ 0958
[2023-08-15] MEDS: cloNIDine 0.1 MG TAB PO PRN (11:05)
[2023-08-15] MEDS: Calcium Carbonate 500 MG ChewTAB PO SCH ×2 (11:55→17:11)
[2023-08-15] MEDS: Iron, Sodium Ferric Gluconate 125 MG in Sodium Chloride 0.9% 100 ML IVPB SCH (12:22)
[2023-08-15] MEDS: Epoetin (ESRD) 10,000 UNITS/ML VIAL SC SCH (12:22)
[2023-08-15] MEDS: niCARdipine 25 MG in Sodium Chloride 0.9% 250 ML 250 ML IVPB SCH (17:38)
[2023-08-16] MEDS: Acetaminophen 325 MG TAB PO PRN (05:36)
[2023-08-16 05:41] LABS: #Monocytes 0.4 thou/uL (0.11-0.59); #Neutrophils 2.5 thou/uL (1.40-6.50); %Basophils 0.2 % (0.0-1.0); %Lymphocytes 29.8 % (21.0-51.0); %Monocytes 10.2 % (0.0-10.0); %Neutrophils 59.6 % (42.0-75.0); Hematocrit 17.8 % (36.0-47.0); Hemoglobin 5.6 g/dL (12.0-16.0); Mean Corpuscular HGB CONC 31.5 g/dL (32.0-36.0); Mean Corpuscular Hemoglobin 23.6 pg (27.0-31.0); Mean Corpuscular Volume 75.1 fl (78.0-98.0); Mean Platelet Volume 10.7 fL (7.4-10.4); Platelet Count 169 10x3/uL (130-400); RBC Distribution Width 17.1 % (11.5-14.5); Red Blood Cell (RBC) Count 2.37 mill/uL (4.20-5.40); White Blood Cell (WBC) Count 4.2 10x3/uL (4.8-10.8)
[2023-08-16 05:48] LABS: Critical Call w/ Read Back ICU.RB@0548
[2023-08-16 06:32] LABS: Anion Gap 16 mmol/L (10-20); BUN (Urea Nitrogen) 72 mg/dL (9.8-20.1); Calc. Creatinine Clearance 10 mL/min (70-130); Calcium 7.7 mg/dL (7.8-10.44); Carbon Dioxide 15 mmol/L (22-29); Chloride 111 mmol/L (98-107); Estimated GFR 7; Glucose 86 mg/dL (70-105); Potassium 3.7 mmol/L (3.5-5.1); Sodium 138 mmol/L (136-145)
[2023-08-17 06:46] LABS: Anion Gap 14 mmol/L (10-20); BUN (Urea Nitrogen) 67 mg/dL (9.8-20.1); Calc. Creatinine Clearance 9 mL/min (70-130); Calcium 7.8 mg/dL (7.8-10.44); Carbon Dioxide 19 mmol/L (22-29); Chloride 109 mmol/L (98-107); Estimated GFR 7; Glucose 90 mg/dL (70-105); Potassium 3.9 mmol/L (3.5-5.1); Sodium 138 mmol/L (136-145)
[2023-08-17 09:06] VITALS: BP 154/92
[2023-08-17] MEDS: Iron, Sodium Ferric Gluconate 250 MG in Sodium Chloride 0.9% 250 ML 250 ML IVPB SCH (10:59)
[2023-08-17 12:03] VITALS: TEMP 98.4
[2023-08-18] MEDS ORDERED: Ferrous Sulfate 325 MG TAB PO SCH (08:00)
== END 2023-08-17 16:41 | disposition home or self-care (01) | DRG 280 ==
LOC: ERS 10:39 → ERHOLD 12:12 → CCU 15:54 → IMCU/EMU 08-16 16:57
PROVIDERS: ADMIT Family Medicine; ATTEND Internal Medicine
DX: I16.1 Hypertensive emergency (principal); I21.A1 Myocardial infarction type 2; I50.33 Acute on chronic diastolic (congestive) heart failure; E87.20 Acidosis, unspecified; N17.9 Acute kidney failure, unspecified; N18.5 Chronic kidney disease, stage 5; Z51.5 Encounter for palliative care; Z66 Do not resuscitate; J81.1 Chronic pulmonary edema; N25.81 Secondary hyperparathyroidism of renal origin; I13.2 Hypertensive heart and chronic kidney disease with heart failure and with stage 5 chronic kidney disease, or end stage renal disease; I25.10 Atherosclerotic heart disease of native coronary artery without angina pectoris; E78.5 Hyperlipidemia, unspecified; R79.89 Other specified abnormal findings of blood chemistry; D63.1 Anemia in chronic kidney disease; N28.9 Disorder of kidney and ureter, unspecified; D50.9 Iron deficiency anemia, unspecified; E83.39 Other disorders of phosphorus metabolism; I08.1 Rheumatic disorders of both mitral and tricuspid valves; M10.9 Gout, unspecified; J30.2 Other seasonal allergic rhinitis; Z95.1 Presence of aortocoronary bypass graft; Z95.818 Presence of other cardiac implants and grafts; Z82.49 Family history of ischemic heart disease and other diseases of the circulatory system; Z87.891 Personal history of nicotine dependence
CPT/HCPCS: 36415; 36416; 70450; 71045; 80048; 80069; 80306; 82607; 82728; 83540; 83550; 83880; 83970; 84443; 85025; 86850; 86900; 86901; 93005; 93306; 96374; J1644; J2916; J3490; J7050; Q4081